=== PATIENT | male | born 1955 | race Caucasian/White ===

== ENCOUNTER 2016-12-20 08:25 | Inpatient (IN) | payer BC ==
[2016-12-20] MEDS ORDERED: NS 0.9% 1000 ML* 1,000 ML IV ONE ×2 (08:52→09:33)
[2016-12-20 09:03] LABS: Hematocrit 44 % (42-52); Hemoglobin 14.6 g/dl (14.0-18.0); Mean Corpuscular HGB Conc 33 g/dl (31-36); Mean Corpuscular Hemoglobin 28 pg (27-31); Mean Corpuscular Volume 85 fL (80-94); Mean Platelet Volume 8 um3 (7.4-10.4); Red Blood Count 5.14 10^6/ul (4.0-5.4); Red Cell Distribution Width 12 % (10.5-15)
[2016-12-20 09:19] LABS: Albumin 4.3 g/dL (3.2-5.2); BUN/Creatinine Ratio 19.3 (8-20); Calcium 10.3 mg/dL (8.6-10.3); EGFR African American 35.2 (>60); EGFR Non-African American 27.4 (>60); Globulin 3.5 g/dL (2-4); Magnesium 2.1 mg/dL (1.9-2.7); Potassium 4.6 mmol/L (3.5-5.0); Total Bilirubin 0.4 mg/dL (0.2-1.0); Total Protein 7.8 g/dL (6.4-8.9)
[2016-12-20 09:21] LABS: Troponin I 0.02 ng/mL (<0.04)
[2016-12-20 10:01] LABS: TSH (Thyroid Stimulating Horm) 2.82 mcIU/mL (0.34-5.60)
[2016-12-20] MEDS ORDERED: Acetaminophen TAB* 325 MG PO PRN (11:51)
[2016-12-20] MEDS ORDERED: Temazepam CAP* 15 MG PO PRN (11:51)
[2016-12-20] MEDS ORDERED: Dextrose 50% Syringe 50 ML* 25 GM/50 ML SYRINGE IV PUSH PRN (11:54)
[2016-12-20] MEDS ORDERED: Insulin GLARGINE(*) 1 UNITS UNIT SUBCUT SCH (12:00)
[2016-12-20 12:24] LABS: Urine Bacteria Absent (Absent); Urine Bilirubin Negative (Negative); Urine Glucose 3+(>=500 mg/dL) (Negative); Urine Nitrite Negative (Negative)
--- NOTE | 2016-12-20 12:45 | RAD ---
INDICATION: Diabetes, weakness evaluate for hydronephrosis. COMPARISON: There are no prior studies available for comparison. TECHNIQUE: Multiple real-time images of the kidneys were obtained. FINDINGS: The kidneys are normal in size shape and echogenicity. The right kidney measured 11.6 x 5.2 x 5.5 cm and the left kidney measured 11.2 x 5.2 x 5.1 cm. No significant focal abnormality or hydronephrosis was present. IMPRESSION: NEGATIVE EXAM, NO EVIDENCE FOR HYDRONEPHROSIS.
[2016-12-20] MEDS: Insulin LISPRO* 1 UNITS UNIT SUBCUT SCH ×3 (13:26→21:05)
--- NOTE | 2016-12-20 14:16 | ED ---
Yadi Carl Matthew, scribed for Curt Manriquez MD on 12/20/16 at 0849 . Complex/Multi-Sys Presentation - HPI Summary HPI Summary: A 61 y/o male presents to the ED with weakness for the past 1.5 weeks. The weakness is worse in the mornings and gradually resolves throughout the day. Today, the patient had weakness this morning, which has since resolved. Associated symptoms include dizziness, nausea, and lightheadedness, which prompted the patient to come to the ED today. He denies SOB, vomiting, and neck pain. The patient states that he was ill last week with associated nasal congestion, headache, right sided facial aching, all of which have since resolved. He has been taking Tylenol for pain due to cracked heels bilaterally. The patient had 3 stents placed 14 years ago. PMHx includes diabetes. - History Of Current Complaint Chief Complaint: EDWeakness Hx Obtained From: Patient Onset/Duration: Lasting Weeks - 1.5, Still Present Timing: Constant - gradually improving throughout the day Severity Currently: Mild Severity Initially: Mild Location: Negative Associated Signs And Symptoms: Positive: Dizziness, Weakness - bilateral arm and leg weakness, Nausea, Other - lightheadedness; NO neck pain. Negative: SOB , Vomiting - Allergies/Home Medications Allergies/Adverse Reactions: Allergies Allergy/AdvReac Type Severity Reaction Status Date / Time No Known Allergies Allergy Verified 12/20/16 08:31 Home Medications: Home Medications Atorvastatin* [Lipitor*] 80 mg PO DAILY 12/20/16 [History Confirmed 12/20/16] Clobetasol 0.05% OINT* 1 applic TOPICAL BID 12/20/16 [History Confirmed 12/20/16 ] Clopidogrel TAB* [Plavix TAB*] 75 mg PO DAILY 12/20/16 [History Confirmed ] Insulin GLARGINE(*) [Lantus(*)] 0 units SUBCUT ONCE 12/20/16 [History Confirmed 12/20/16] Lisinopril/HCTZ 10.5(NF) [Zestoretic 1012.5(NF)] 1 tab PO DAILY 12/20/16 [ History Confirmed 12/20/16] Meloxicam (Bulk) [Meloxicam] 1 pow XX DAILY 12/20/16 [History] Metoprolol Tartrate TAB* [Lopressor TAB*] 50 mg PO BID 12/20/16 [History Confirmed 12/20/16] Urea [Talita Lo 40] 40 % EX DAILY 12/20/16 [History Confirmed 12/20/16] amLODIPine TAB* [Norvasc TAB*] 5 mg PO DAILY 12/20/16 [History Confirmed ] metFORMIN* [Glucophage*] 1,000 mg PO BID 12/20/16 [History Confirmed 12/20/16] PMH/Surg Hx/FS Hx/Imm Hx Endocrine/Hematology History: Reports: Hx Diabetes Cardiovascular History: Reports: Hx Hypercholesterolemia, Hx Hypertension, Other Cardiovascular Problems/Disorders - Hx of 3 stents - Surgical History Surgery Procedure, Year, and Place: appendectomy Infectious Disease History: No Infectious Disease History: Denies: Traveled Outside the [place] in Last 30 Days - Family History Known Family History: Positive: Cardiac Disease, Diabetes Family History: FHx of [place] - Social History Lives: With Family Alcohol Use: None Hx Substance Use: No Substance Use Type: Reports: None Hx Tobacco Use: No Review of Systems Constitutional: Negative Eyes: Negative ENT: Negative Cardiovascular: Negative Respiratory: Negative Negative: Shortness Of Breath Positive: Nausea Genitourinary: Negative Musculoskeletal: Negative Skin: Other - dry cracked heels Neurological: Other - dizziness; lightheadedness Positive: Weakness - bilateral arms and legs Psychological: Normal All Other Systems Reviewed And Are Negative: Yes Physical Exam Triage Information Reviewed: Yes Vital Signs On Initial Exam: Initial Vitals Temp Pulse Resp BP Pulse Ox 96.7 F 73 17 140/69 99 12/20/16 08:27 12/20/16 08:27 12/20/16 08:27 12/20/16 08:27 12/20/16 08:27 Vital Signs Reviewed: Yes Appearance: Positive: Well-Appearing, No Pain Distress Skin: Positive: Warm, Skin Color Reflects Adequate Perfusion, Dry, Other - The patient has dry cracked heels bilaterally, which do not appear infected. Head/Face: Positive: Normal Head/Face Inspection Eyes: Positive: Normal ENT: Positive: Normal ENT inspection Neck: Positive: Supple, Nontender Respiratory/Lung Sounds: Positive: Clear to Auscultation, Breath Sounds Present Cardiovascular: Positive: RRR Abdomen Description: Positive: Nontender, Soft Bowel Sounds: Positive: Present Musculoskeletal: Positive: Normal, Strength/ROM Intact Neurological: Positive: Normal, Sensory/Motor Intact, Alert, Oriented to Person Place, Time Psychiatric: Positive: Normal, Affect/Mood Appropriate Diagnostics - Vital Signs Vital Signs Temp Pulse Resp BP Pulse Ox 12/20/16 08:27 96.7 F 73 17 140/69 99 - Laboratory Lab Results: Lab Results 12/20/16 12/20/16 12/20/16 Range/Units 08:50 08:50 08:50 WBC 11.0 H (3.5-10.8) 10^3/ul RBC 5.14 (4.0-5.4) 10^6/ul Hgb 14.6 (14.0-18.0) g/dl Hct 44 (42-52) % MCV 85 (80-94) fL MCH 28 (27-31) pg MCHC 33 (31-36) g/dl RDW 12 (10.5-15) % Plt Count 420 (150-450) 10^3/ul MPV 8 (7.4-10.4) um3 Neut % (Auto) 78.4 (38-83) % Lymph % (Auto) 8.4 L (25-47) % [place] % (Auto) 9.9 H (1-9) % Eos % (Auto) 2.9 (0-6) % Baso % (Auto) 0.4 (0-2) % Absolute Neuts (auto) 8.6 H (1.5-7.7) 10^3/ul Absolute Lymphs (auto) 0.9 L (1.0-4.8) 10^3/ul Absolute Monos (auto) 1.1 H (0-0.8) 10^3/ul Absolute Eos (auto) 0.3 (0-0.6) 10^3/ul Absolute Basos (auto) 0 (0-0.2) 10^3/ul Absolute Nucleated RBC 0.01 10^3/ul Nucleated RBC % 0.1 Sodium 130 L (133-145) mmol/L Potassium 4.6 (3.5-5.0) mmol/L Chloride 94 L (101-111) mmol/L Carbon Dioxide 25 (22-32) mmol/L Anion Gap 11 (2-11) mmol/L BUN 47 H (6-24) mg/dL Creatinine 2.43 H (0.67-1.17) mg/dL Est GFR ( Amer) 35.2 (>60) Est GFR (Non-Af Amer) 27.4 (>60) BUN/Creatinine Ratio 19.3 (8-20) Glucose 257 H (70-100) mg/dL Hemoglobin A1c (Less than 6.0) % Lactic Acid 2.7 H* (0.5-2.0) mmol/L Calcium 10.3 (8.6-10.3) mg/dL Magnesium 2.1 (1.9-2.7) mg/dL Total Bilirubin 0.40 (0.2-1.0) mg/dL AST 25 (13-39) U/L ALT 29 (7-52) U/L Alkaline Phosphatase 171 H (34-104) U/L Troponin I 0.02 (<0.04) ng/mL Total Protein 7.8 (6.4-8.9) g/dL Albumin 4.3 (3.2-5.2) g/dL Globulin 3.5 (2-4) g/dL Albumin/Globulin Ratio 1.2 (1-3) TSH 2.82 (0.34-5.60) mcIU/mL 12/20/16 Range/Units 08:50 WBC (3.5-10.8) 10^3/ul RBC (4.0-5.4) 10^6/ul Hgb (14.0-18.0) g/dl Hct (42-52) % MCV (80-94) fL MCH (27-31) pg MCHC (31-36) g/dl RDW (10.5-15) % Plt Count (150-450) 10^3/ul MPV (7.4-10.4) um3 Neut % (Auto) (38-83) % Lymph % (Auto) (25-47) % [place] % (Auto) (1-9) % Eos % (Auto) (0-6) % Baso % (Auto) (0-2) % Absolute Neuts (auto) (1.5-7.7) 10^3/ul Absolute Lymphs (auto) (1.0-4.8) 10^3/ul Absolute Monos (auto) (0-0.8) 10^3/ul Absolute Eos (auto) (0-0.6) 10^3/ul Absolute Basos (auto) (0-0.2) 10^3/ul Absolute Nucleated RBC 10^3/ul Nucleated RBC % Sodium (133-145) mmol/L Potassium (3.5-5.0) mmol/L Chloride (101-111) mmol/L Carbon Dioxide (22-32) mmol/L Anion Gap (2-11) mmol/L BUN (6-24) mg/dL Creatinine (0.67-1.17) mg/dL Est GFR ( Amer) (>60) Est GFR (Non-Af Amer) (>60) BUN/Creatinine Ratio (8-20) Glucose (70-100) mg/dL Hemoglobin A1c 12.4 H (Less than 6.0) % Lactic Acid (0.5-2.0) mmol/L Calcium (8.6-10.3) mg/dL Magnesium (1.9-2.7) mg/dL Total Bilirubin (0.2-1.0) mg/dL AST (13-39) U/L ALT (7-52) U/L Alkaline Phosphatase (34-104) U/L Troponin I (<0.04) ng/mL Total Protein (6.4-8.9) g/dL Albumin (3.2-5.2) g/dL Globulin (2-4) g/dL Albumin/Globulin Ratio (1-3) TSH (0.34-5.60) mcIU/mL Result Diagrams: 12/20/16 08:50 12/20/16 08:50 Lab Statement: Any lab studies that have been ordered have been reviewed, and results considered in the medical decision making process. - EKG 08:31 Cardiac Rate: NL - 69 bpm EKG Rhythm: Sinus Rhythm EKG Interpretation: LVH w/ strain pattern Complex Multi-Symp Course/Dx Assessment/Plan: A 61 y/o male presents to the ED with weakness for the past 1.5 weeks. The weakness is worse in the mornings and gradually resolves throughout the day. Today, the patient also had associated dizziness, nausea, and lightheadedness, which prompted him to present to the ED. Labs were reviewed. EKG shows NSR at 69 bpm and LVH with a strain pattern. His BUN and Creatinine were both elevated which may indicate dehydration but his creatine is quite elevated. I discussed the case with Dr. Blanco will admit the patient into her services for further work-up and management. - Diagnoses Provider Diagnoses: Dehydration, severe - Physician Notifications Discussed Care Of Patient With: Dr. Blanco (Hospitalist) -- Notified of patient's history and will admit the patient into her services. Discharge - Discharge Plan Condition: Guarded Disposition: ADMITTED TO [facility] The documentation as recorded by the Yadi taylor Matthew accurately reflects the service I personally performed and the decisions made by me, Curt Manriquez MD.
--- NOTE | 2016-12-20 15:16 | RAD ---
Indication: Bilateral leg fatigue with walking each morning. Hypertension, diabetes, coronary artery disease, hyperlipidemia. Comparison: None. Technique: Ankle and brachial blood pressure measurement. Calculated ankle-brachial indices. REPORT: The right ankle brachial index is 1.33 indicating reduced arterial compressibility limiting assessment. Triphasic waveforms documented at the posterior tibial and dorsalis pedis arteries. Arterial flow documented at the RIGHT great toe. Toe brachial index could not be calculated due to noncompressible vessels. Absence of significant reflected waves on RIGHT ankle pulse volume recording. The left ankle brachial index is 0.71 in claudication range. Low amplitude biphasic posterior tibial and biphasic dorsalis pedis waveforms. Arterial flow documented at the LEFT great toe. Toe brachial index could not be calculated due to noncompressible vessels. Unremarkable LEFT ankle pulse volume recording. IMPRESSION: 1. The RIGHT ankle brachial index is compromised due to noncompressible vessels. Mild degradation of the RIGHT posterior tibial spectral wave form and RIGHT ankle pulse volume recording suggests either inflow disease or intrinsic lower extremity stenoses. 2. Claudication range LEFT ankle brachial index with corresponding degradation of the posterior tibial and dorsalis pedis waveforms. 3. Correlate with clinical presentation and consider CT angiogram runoff for further assessment if deemed clinically appropriate.
--- NOTE | 2016-12-20 15:54 | HP ---
HISTORY AND PHYSICAL: DATE OF ADMISSION: 12/20/16 PRIMARY CARE PHYSICIAN: Philip Farmer MD CHIEF COMPLAINT: Generalized weakness. HISTORY OF PRESENT ILLNESS: Mr. Dannie Louis is a 61-year-old male with a history of diabetes, hypertension, dyslipidemia, and coronary artery disease who presents complaining of generalized weakness for the past week and a half. The patient stated that approximately 2 weeks ago, he had "sinus resection." His head felt "stuffy" and his nose felt congested. He denies any fevers. He stated ever since then in the morning when would wake up, he would feel very weak. He describes it as a generalized weakness. He denies shortness of breath or chest pain. His appetite has been "okay." He states that he may have lost some weight, but he could not quantify it. Today in the morning when he got up he felt dizzy, which he stated was progression of his generalized weakness. He came into the ED for evaluation and his creatinine was 2.4. The patient is not aware of having any kidney issues in the past. When he saw Dr. Farmer 6 months ago, his blood pressure medication was increased. The patient is going to be placed on overnight observation with a diagnosis of acute renal failure, most likely dehydration. PAST MEDICAL HISTORY: 1. Diabetes type 2. 2. Hypertension. 3. Coronary artery disease, status post 3 stents at [facility] 14 years ago. 4. Dyslipidemia. 5. History of C-spine surgery for herniated disk. 6. Appendectomy in childhood. MEDICATIONS: Include: 1. Insulin Lantus 35 units at night. 2. Plavix 75 mg daily. 3. Clobetasol ointment 0.05% one application topically b.i.d. to bilateral feet. 4. Lipitor 80 mg daily. 5. Lisinopril/hydrochlorothiazide 10/12.5 mg 1 table daily. 6. Metoprolol tartrate 50 mg b.i.d. 7. Urea 40% applied to bilateral feet daily. 8. Amlodipine 5 mg daily. 9. Metformin 1000 mg b.i.d. ALLERGIES: No known drug allergies. FAMILY HISTORY: Positive for mother who in her 80s of unknown cancer. Brother who secondary to esophageal cancer at the of 53. Father with history of heart disease. SOCIAL HISTORY: The patient drinks 6 packs of light beer a day. He denies any tobacco use or drug use. 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 He is and his is his surrogate, 's first name is Anoop. REVIEW OF SYSTEMS: Please see history of present illness. In addition to the above mentioned, the patient stated that he had troubles with his feet for several years now. He is going to a business operations specialist and has shoe inserts that make his calves hurt when he walks. He also uses ointments on his feet that has cracked soles a couple of times a day. Due to his feet hurting, he had been using Tylenol, but he specifically denies any use of nonsteroidal antiinflammatory medications including Motrin or any brand name of Advil, Aleve, or naproxen. All the remaining 14 systems were reviewed with the patient and were otherwise negative. PHYSICAL EXAMINATION GENERAL: The patient is a very pleasant 61-year-old male who is in no acute distress. Alert, awake, and oriented x3. VITAL SIGNS: Blood pressure 109/59, heart rate of 69 and regular, respiratory rate 10, oxygen saturation is 100% on room air, and temperature of 96.7. HEENT: Head is atraumatic and normocephalic. Eyes, pupils equal, round, reactive to light and accommodation. Oropharynx clear. Mucosa moist. NECK: Supple. No JVD. No bruits bilaterally. LUNGS: Respiratory; clear to auscultation bilaterally. HEART: Cardiovascular; regular rate and rhythm. No murmur. ABDOMEN: Soft and nontender. Bowel sounds present in all 4 quadrants. No bruits on auscultation of abdomen. On evaluation of the flank, there was no CVA tenderness bilaterally. EXTREMITIES: There is no edema. Pulses are poorly palpable and there is poor capillary refill. Otherwise feet appeared to be well perfused, warm with pink toes. SKIN: On evaluation of the skin, the patient has dry, cracked skin on bilateral feet. The skin cracks are most visible on his first toes bilaterally. NEUROLOGIC: Speech clear. Cranial nerves II through XII are grossly intact. Motor strength is 5/5 bilaterally. PSYCHIATRIC: On evaluation, no anxiety or depression noted. DIAGNOSTIC STUDIES/LAB DATA: Showed sodium of 130, potassium 4.6, chloride 94 , carbon dioxide 25, BUN 47, and creatinine 2.4. Liver function tests unremarkable apart from slight elevation of alkaline phosphatase at 171. Lactic acid of 2.7. White blood cell count of 11.2, hemoglobin of 14.6, hematocrit of 44, and platelets of 420. Urinalysis is pending at the time of dictation. The patient's EKG shows sinus rhythm with a heart rate of 69 beats per minute, with criteria for LVH and J-point elevation in anterior leads. There was no old EKG available for comparison. ASSESSMENT AND PLAN: The patient appears to be in acute renal failure, although we are still in the process of obtaining medical records from Dr. Farmer's office. I suspect that his generalized weakness is due to both maybe slight uremia plus slight dehydration as well as mild lactic acidosis when the patient is still on metformin with his creatinine of 2.4. At this point, the patient's metformin as well as Zestoretic is going to be held. The patient is going to be placed on intravenous hydration for a total of 2 L. We will monitor creatinine in the morning. We will obtain urinalysis that is still pending at the time of dictation as well as bilaterally renal ultrasound. At some point, the patient may need renal artery Doppler testing performed, but usually it is an outpatient study. In regards to poor pulses in bilaterally lower extremities and history of foot and calf pain when walking, I will obtain ankle-brachial indices bilaterally. In regards to the patient's diabetes, hemoglobin A1c is going to be obtained. He is going to be continued on insulin sliding scale as well as Lantus, which the hospital diet is going to be lowered at 20 units daily. That maybe adjusted as needed. Metformin is going to be held though the patient's creatinine markedly elevated. In regards to hypertension, amlodipine is going to be continued. Zestoretic is going to be held due to acute renal failure. In regards to the patient's history of coronary artery disease, the patient has no symptoms of shortness of breath or chest pain. His Plavix is going to be continued as well as his statin. Code status: Full. DVT prophylaxis: The patient is low risk and is fully ambulatory. At this point, the patient is going to be placed on overnight observation on the medical floor. TIME SPENT: Approximately 65 minutes was spent on the admission of this patient , more than half that time was spent [id number] with the patient doing the interview and physical exam. CC: Dr. Farmer * [id number]/CPS #: [id number] ALVINO
[2016-12-20] MEDS ORDERED: Insulin LISPRO* 1 UNITS UNIT SUBCUT SCH (16:30)
[2016-12-20] MEDS: Metoprolol Tartrate TAB* 50 mg PO SCH (17:47)
[2016-12-20] MEDS: NS 0.9% 1000 ML* 1,000 ML IV SCH (19:49)
[2016-12-20] MEDS ORDERED: amLODIPine TAB* 5 MG PO ONE (20:37)
[2016-12-20] MEDS: Insulin GLARGINE(*) 1 UNITS UNIT SUBCUT SCH (21:05)
[2016-12-20] MEDS: Clobetasol 0.05% OINT* 30 GM TUBE TOPICAL SCH (21:06)
[2016-12-21] MEDS: NS 0.9% 1000 ML* 1,000 ML IV SCH ×2 (05:52→17:47)
[2016-12-21 07:16] LABS: BUN/Creatinine Ratio 19.1 (8-20); Calcium 8.8 mg/dL (8.6-10.3); EGFR African American 50.4 (>60); EGFR Non-African American 39.2 (>60); Potassium 4.1 mmol/L (3.5-5.0)
[2016-12-21] MEDS: Insulin LISPRO* 1 UNITS UNIT SUBCUT SCH ×4 (07:41→22:22)
[2016-12-21] MEDS: Clopidogrel TAB* 75 MG PO SCH (08:07)
[2016-12-21] MEDS: Atorvastatin* 80 MG TAB PO SCH (08:07)
[2016-12-21] MEDS: Metoprolol Tartrate TAB* 50 mg PO SCH ×2 (08:08→17:47)
[2016-12-21] MEDS: Clobetasol 0.05% OINT* 30 GM TUBE TOPICAL SCH ×2 (08:08→21:35)
[2016-12-21] MEDS: amLODIPine TAB* 5 MG PO SCH (08:08)
[2016-12-21] MEDS ORDERED: Metoprolol Tartrate TAB* 25 MG PO ONE (10:42)
--- NOTE | 2016-12-21 11:22 | PN ---
Subjective Date of Service: 12/21/16 Interval History: HOSPITALIST PROGRESS NOTE Patient seen and examined at bedside. He feels better today. Dizziness is almost resolved, but he still feels " without ambition". Appetite is good and he's drinking fluids. Family History: Unchanged from Admission Social History: Unchanged from Admission Past Medical History: Unchanged from Admission Objective Active Medications: Acetaminophen (Tylenol Tab*) 650 mg PO Q4H PRN PRN Reason: FEVER/PAIN Amlodipine Besylate (Norvasc Tab*) 5 mg PO DAILY [facility] Last Admin: 12/21/16 08:08 Dose: 5 mg Atorvastatin Calcium (Lipitor*) 80 mg PO DAILY [facility] Last Admin: 12/21/16 08:07 Dose: 80 mg Clobetasol Propionate (Clobetasol 0.05% Oint*) 1 applic TOPICAL BID [facility] Last Admin: 12/21/16 08:08 Dose: 1 applic Clopidogrel Bisulfate (Plavix Tab*) 75 mg PO DAILY [facility] Last Admin: 12/21/16 08:07 Dose: 75 mg Dextrose (D50w Syringe 50 Ml*) 12.5 gm IV PUSH .FOR FS < 60 - SS PRN PRN Reason: FS < 60 Insulin Glargine (Lantus(*)) 20 units SUBCUT BEDTIME [facility] Last Admin: 12/20/16 21:05 Dose: 20 units Insulin Human Lispro (Humalog*) 0 units SUBCUT ACHS [facility] PRN Reason: Protocol Last Admin: 12/21/16 07:41 Dose: Not Given Metoprolol Tartrate (Lopressor Tab*) 50 mg PO BID WITH MEALS [facility] Last Admin: 12/21/16 08:08 Dose: 50 mg Temazepam (Restoril Cap*) 15 mg PO BEDTIME PRN PRN Reason: INSOMNIA Vital Signs 12/21/16 12/21/16 08:00 08:37 Temperature 98.0 F Pulse Rate 86 Respiratory 16 16 Rate Blood Pressure 115/65 (mmHg) O2 Sat by Pulse 99 Oximetry Oxygen Devices in Use Now: None Appearance: Pleasant gentleman sitting up in bed in NAD. Eyes: No Scleral Icterus Ears/Nose/Mouth/Throat: Mucous Membranes Moist Neck: Trachea Midline Respiratory: Symmetrical Chest Expansion and Respiratory Effort, Clear to Auscultation Cardiovascular: RRR - Normal S1 and S2 Abdominal: NL Sounds; No Tenderness; No Distention Extremities: No Edema, - - Bilateral DP pulses present, but diminished, good capillary refill Skin: - - Dry skin with cracks on his feet Neurological: Alert and Oriented x 3, NL Muscle Strength and Tone Lines/Tubes/Other Access: Clean, Dry and Intact Peripheral IV Nutrition: Taking PO's Result Diagrams: 12/20/16 08:50 12/21/16 06:37 Assess/Plan/Problems-Billing Assessment: Mr. Louis is a 61yo M with PMH of type 2 DM, HTN, CAD s/p stents (at [place] 15 years ago), HLD, who presented to ED with c/o weakness and dizziness, found to have KERLINE. - Patient Problems (1) KERLINE (acute kidney injury) Comment: - Suspect associated with Lisinopril/HCTZ as his dose was increased a couple of months ago, exacerbated by probable viral URI. - Lisinopril and HCTZ on hold. - Continue IVF. - Renal function improving. - Renal US showed no hydronephrosis. - Will obtain records from Dr. Farmer as I suspect he may already have a component of CKD secondary to his HTN/DM. (2) Peripheral vascular disease Comment: - PHILIP reviewed. - Will refer to Dr. Bullock for angiogram as outpatient after renal function improved. - Continue Clopidogrel and Atorvastatin. (3) Type 2 diabetes mellitus Comment: - Chronically uncontrolled. - A1c 12.4. - Metformin on hold due to KERLINE. - Continue Lantus and Lispro SS. - Diabetes consult requested. - Will benefit of outpatient f/u at [facility]. (4) HTN (hypertension) Comment: - Continue to monitor. - As Lisinopril/HCTZ are discontinued for now, will probably need a higher dose of Metoprolol and/or Amlodipine. (5) CAD (coronary artery disease) Comment: - No c/o chest pain or dyspnea. - Continue Plavix, Atorvastatin and Metoprolol. (6) DVT prophylaxis Comment: - SQ heparin. (7) Full code status Status and Disposition: Inpatient.
[2016-12-21] MEDS ORDERED: Insulin LISPRO* 1 UNITS UNIT SUBCUT ONE (17:14)
[2016-12-21] MEDS: Insulin GLARGINE(*) 1 UNITS UNIT SUBCUT SCH (21:33)
[2016-12-21] MEDS: Heparin VIAL(*) 5000 UNITS/ML VIAL (FIVE THOUSAND) SUBCUT SCH (21:34)
[2016-12-22] MEDS: NS 0.9% 1000 ML* 1,000 ML IV SCH (04:02)
[2016-12-22] MEDS: Heparin VIAL(*) 5000 UNITS/ML VIAL (FIVE THOUSAND) SUBCUT SCH (05:28)
[2016-12-22 06:43] LABS: BUN/Creatinine Ratio 16.7 (8-20); EGFR African American 61.4 (>60); EGFR Non-African American 47.7 (>60); Potassium 4.1 mmol/L (3.5-5.0)
[2016-12-22] MEDS ORDERED: Insulin LISPRO* 1 UNITS UNIT SUBCUT SCH (07:30)
[2016-12-22 08:05] VITALS: BP 142/61
[2016-12-22] MEDS: Insulin LISPRO* 1 UNITS UNIT SUBCUT SCH (08:41)
[2016-12-22] MEDS: Metoprolol Tartrate TAB* 50 mg PO SCH (08:51)
[2016-12-22] MEDS: Clopidogrel TAB* 75 MG PO SCH (08:51)
[2016-12-22] MEDS: amLODIPine TAB* 5 MG PO SCH (08:51)
[2016-12-22] MEDS: Atorvastatin* 80 MG TAB PO SCH (08:51)
[2016-12-22] MEDS: Clobetasol 0.05% OINT* 30 GM TUBE TOPICAL SCH (08:56)
[2016-12-22] MEDS ORDERED: amLODIPine TAB* 5 MG PO SCH (09:00)
[2016-12-22] MEDS ORDERED: amLODIPine TAB* 5 MG PO ONE (09:09)
--- NOTE | 2016-12-22 21:59 | DS ---
DISCHARGE SUMMARY: DATE OF ADMISSION: 12/20/16 DATE OF DISCHARGE: 12/22/16 PRIMARY CARE PROVIDER: Dr. Farmer. DISCHARGE DIAGNOSES: 1. Acute kidney injury, likely multifactorial associated with dehydration, SONYA inhibitor and diuretic use. 2. Peripheral vascular disease. SECONDARY DIAGNOSES: 1. Type 2 diabetes, chronically uncontrolled. 2. Hypertension. 3. Coronary artery disease, status post stent. 4. Hyperlipidemia. 5. History of cervical spine surgery for herniated disk. 6. Status post appendectomy. MEDICATIONS: 1. Aspirin 325 mg p.o. daily. 2. Urea cream topical daily. 3. Clobetasol 0.05% ointment topical b.i.d. 4. Metoprolol tartrate 50 mg p.o. b.i.d. 5. Clopidogrel 75 mg p.o. daily. 6. Atorvastatin 80 mg p.o. daily. 7. Lantus 35 units subcutaneously at bedtime. Medication change: Amlodipine was increased to 10 mg p.o. daily. NEW MEDICATIONS: Acetaminophen 650 mg p.o. q.4 hours p.r.n. pain for fever HOSPITAL COURSE: Mr. Louis is a 61-year-old male with a past medical history as stated above who presented to the emergency room with complaints of generalized weakness. He states that 2 weeks ago, he probably developed a "sinus infection." He took some exyc-hrv-caeybwg medication, but still felt congested, weak as he describes with "no ambition." He states that the day of admission he felt even worse with significant dizziness and he felt he was not safe to drive to work, so he came to the emergency room for further evaluation. For more details about his presentation, I refer you to his history and physical. In emergency room, the patient was found to have a systolic blood pressure in the 80s and a creatinine of 2.4 from a prior value of 1.2 in 2013. He was admitted under the impression of acute kidney injury, likely multifactorial. The patient had a renal ultrasound that was a negative exam with no evidence for hydronephrosis. He received IV hydration with improvement of his renal function. Creatinine on the day of discharge is 1.5. I suspect the patient may already have a component of chronic kidney disease associated with diabetic nephropathy and this was exacerbated by dehydration and also lisinopril and hydrochlorothiazide as the patient tells me that he had increased the dose of those medications a couple of months ago. At this time, his lisinopril, hydrochlorothiazide and metformin were discontinued and his amlodipine was increased to 10 mg a day to a systolic blood pressure control, but I believe as his renal function continues to improve, he may benefit of SONYA inhibitor use with closer monitoring of his renal function. The patient also had complaints of lower extremity pain and claudication, and a lower extremity arterial study was performed and it showed that on the right, ankle- brachial index is compromised due to noncompressible vessels. There is mild degradation of the right posterior tibial spectral waveform and right ankle pulse volume recording suggests either inflow disease or intrinsic lower extremity stenosis. Claudication range left ankle brachial index with corresponding degradation of the posterior tibial and dorsalis pedis waveforms. On physical examination, the patient has palpable pulses, but they are diminished and he has good capillary refill. I discussed these PHILIP results with Dr. Bullock and the plan is for the patient to be evaluated as outpatient with an angiogram when his renal function is improved. The patient also does not follow with a director of institutional giving, so I think this would be a good option to have Dr. Bullock take care of his coronary artery disease and peripheral vascular disease. At this point, the patient will be continued on his aspirin, Plavix, and atorvastatin. The patient has no complaints of chest pain, shortness of breath at rest or with exertion, or palpitations. Although he has not seen a director of institutional giving in many years, his coronary artery disease appears to be stable from a symptomatic point of view at this point, but he will require further evaluation with Dr. Bullock as outpatient. The patient is noted to have chronically uncontrolled diabetes. His hemoglobin A1c is 12.4 and the patient admits that he does not check his sugar at home and does not count carbohydrates. I have requested a consultation with Kira Londono, nurse practitioner, and the patient was referred to the [facility] as this will be one of the important items of his treatment. At this point, he is being discharged home on Lantus insulin. His metformin is on hold at this point due to his acute kidney injury, but I believe this can be resumed by next week if his renal function is back to its baseline. I believe ideally this patient would benefit of Lantus and lispro regimen with carbohydrate counting as it seems that he is not making the best dietary choices as seen by the wide fluctuation of his sugar values depending on his meals. The patient's blood pressure is improved. He had resolution of his dizziness and he feels well enough to be discharged home. The patient was educated about his diagnoses of acute kidney injury, peripheral vascular disease, type 2 diabetes, and educated about symptoms that should prompt his return to the emergency room. PHYSICAL EXAMINATION: Vital Signs: Temperature 97.9, heart rate is 84, respiratory rate is 18, oxygen saturation is 100% on room air, blood pressure is 142/61. General: The patient is a pleasant gentleman sitting up in the bed , in no acute distress. CVS: Normal S1, S2. Regular rate and rhythm. Chest: Breath sounds present bilaterally with no added sounds. Abdomen: Soft. Bowel sounds are present. Extremities: There is no edema. The patient has diminished dorsalis pedis pulses bilaterally but he has good capillary refill. Neuro: He is alert, awake, and oriented x3. He is able to move all 4 extremities. DIET: Heart healthy consistent carb diet. ACTIVITY: As tolerated. The patient can return to his usual activities on 12/26/16. DISPOSITION: To home. STATUS WHILE IN THE HOSPITAL: Inpatient. Please note that the patient is going to have a repeat BMP on 12/26/16 and the result will be sent to Dr. Bullock and to Dr. Farmer. Please keep in mind that this is a summarized version of this patient's hospital stay. If you need more information, please feel free to call me at or please obtain the full medical records. TIME SPENT: Approximately 45 minutes was spent to complete this discharge. CC: Dr. Farmer; Dr. Bullock; Kira Londono NP, at [facility]* [id number]/[facility] #: [id number] [facility]
== END 2016-12-22 10:55 | disposition home or self-care (01) | DRG 460 ==
LOC: ED 08:25 → MED 11:23 → OBSVTOIN 12-21 11:21
PROVIDERS: ADMIT Internal Medicine; ATTEND Internal Medicine
DX: N17.9 Acute kidney failure, unspecified (principal); E11.22 Type 2 diabetes mellitus with diabetic chronic kidney disease; E11.51 Type 2 diabetes mellitus with diabetic peripheral angiopathy without gangrene; E86.0 Dehydration; T46.4X5A Adverse effect of angiotensin-converting-enzyme inhibitors, initial encounter; T50.2X5A Adverse effect of carbonic-anhydrase inhibitors, benzothiadiazides and other diuretics, initial encounter; E11.65 Type 2 diabetes mellitus with hyperglycemia; I25.10 Atherosclerotic heart disease of native coronary artery without angina pectoris; Z95.5 Presence of coronary angioplasty implant and graft; E78.5 Hyperlipidemia, unspecified; Z79.82 Long term (current) use of aspirin; Z79.4 Long term (current) use of insulin; Z79.02 Long term (current) use of antithrombotics/antiplatelets; Z82.49 Family history of ischemic heart disease and other diseases of the circulatory system; Z83.3 Family history of diabetes mellitus; Z80.0 Family history of malignant neoplasm of digestive organs; N18.9 Chronic kidney disease, unspecified; I12.9 Hypertensive chronic kidney disease with stage 1 through stage 4 chronic kidney disease, or unspecified chronic kidney disease
CPT/HCPCS: 36415; 76775; 80048; 80053; 81003; 81015; 82947; 83036; 83605; 83735; 84443; 84484; 85025; 93005; 93922; A9270-GY; G0378; J1644

== ENCOUNTER 2017-11-27 05:58 | Inpatient (IN) | payer BC ==
[2017-11-27] MEDS ORDERED: Acetaminophen TAB* 325 MG PO PRN (06:18)
[2017-11-27] MEDS ORDERED: Dextrose 50% Syringe 50 ML* 25 GM/50 ML SYRINGE IV PUSH PRN (06:25)
[2017-11-27 06:54] LABS: Hematocrit 38 % (42-52); Hemoglobin 12.4 g/dl (14.0-18.0); Mean Corpuscular HGB Conc 33 g/dl (31-36); Mean Corpuscular Hemoglobin 26 pg (27-31); Mean Corpuscular Volume 80 fL (80-94); Mean Platelet Volume 8 um3 (7.4-10.4); Platelet Count 315 10^3/ul (150-450); Red Blood Count 4.72 10^6/ul (4.0-5.4); Red Cell Distribution Width 16 % (10.5-15); White Blood Count 8.1 10^3/ul (3.5-10.8)
[2017-11-27 07:05] LABS: EGFR Non-African American 28.5 (>60)
[2017-11-27] MEDS ORDERED: LORazepam TAB(*) 0.5 MG PO PRN (07:07)
[2017-11-27] MEDS: Insulin LISPRO* 1 UNITS UNIT SUBCUT SCH ×4 (07:35→21:42)
[2017-11-27] MEDS: amLODIPine TAB* 5 MG PO SCH (08:42)
[2017-11-27] MEDS: Metoprolol Tartrate TAB* 50 mg PO SCH ×2 (08:42→21:41)
[2017-11-27] MEDS: Aspirin TAB* 325 MG PO SCH (08:42)
[2017-11-27] MEDS ORDERED: Atorvastatin* 80 MG TAB PO SCH (09:00)
[2017-11-27] MEDS ORDERED: Clopidogrel TAB* 75 MG PO SCH (09:00)
--- NOTE | 2017-11-27 10:28 | HP ---
CC: Dr. Farmer * HISTORY AND PHYSICAL: DATE OF ADMISSION: 11/27/17 PRIMARY CARE PROVIDER: Dr. Farmer. CHIEF COMPLAINT: Shortness of breath. HISTORY OF PRESENT ILLNESS: Mr. Louis is a 62-year-old male, who has a history of coronary artery disease, hypertension, hyperlipidemia, peripheral artery disease, and type 2 diabetes, who presented to the [facility] complaining of shortness of breath. He states over the last 2 to 3 days, he has been noting shortness of breath. He states when he is out walking to his barn, he would have to stop 2 to 3 times just in that distance, which is unusual for him. Additionally, he would note when lying flat in bed, he could hear a gurgling sound with exhalation. The patient states that he did not feel short of breath, however, lying flat initially. On the night prior to admission , the patient was lying in bed and felt as if he could not breathe. He states that if he sat up, he would feel better, but then it got to the point where he was very short of breath even sitting upright. The patient states as he became more and more short of breath, his anxiety began to escalate and he believes that this also played a role. The patient admits to be coughing for the last 2 to 3 days. It has been dry. He denies any sputum production. He denies any consistent fevers or chills. The patient denies any chest pain. He does note that his legs have been swollen since dating back to September when he had surgery on his left lower extremity. PAST MEDICAL HISTORY: 1. Coronary artery disease. 2. Hypertension. 3. Hyperlipidemia. 4. Peripheral artery disease. 5. Type 2 diabetes. PAST SURGICAL HISTORY: 1. Left lower extremity bypass surgery. 2. Back surgery. 3. Appendectomy. MEDICATIONS: 1. Lantus 40 units subcutaneous q.h.s. 2. Aspirin 325 mg p.o. daily. 3. Metoprolol tartrate 50 mg p.o. twice daily. 4. Plavix 75 mg p.o. daily. 5. Lipitor 80 mg p.o. daily. 6. Amlodipine 10 mg p.o. daily. ALLERGIES: METFORMIN WITH CONTRAST DYE caused acute renal failure. FAMILY HISTORY: Mom at age 84 of cancer. Dad related to heart disease and peripheral arterial disease. The patient's brother secondary to esophageal cancer. SOCIAL HISTORY: The patient is a former smoker. He quit 15 to 20 years ago. He drinks 6 to 7 beers per day. 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 He is . His , Anoop, is his healthcare proxy. He has 2 children. REVIEW OF SYSTEMS: A complete 11-system review of systems was obtained. Pertinent positives and negatives are as per HPI and otherwise negative. PHYSICAL EXAMINATION GENERAL: The patient is a well-developed, middle-aged male sitting up in bed, in no acute distress. VITAL SIGNS: Blood pressure 175/83, pulse 73, respirations 16, temp 97.1, O2 sat 98% on 2 L. HEENT: Pupils are equal and round. Extraocular muscles intact. Oropharynx is clear. Oral mucosa is moist. The patient wears upper and lower dentures. There is no submandibular, cervical, or supraclavicular adenopathy. Thyroid is not enlarged. No thyroid nodules noted. PULMONARY: Lungs are clear to auscultation with very mildly reduced breath sounds at the bases. CARDIAC: Normal S1 and S2. Regular rate and rhythm. I did not appreciate any murmurs. There is 2+ pitting edema to both lower extremities up to the knee. ABDOMEN: Bowel sounds present. Abdomen is soft, nontender, and nondistended. MUSCULOSKELETAL: There is no cyanosis or clubbing of the digits. There is full active range of motion of all 4 extremities. NEURO: Cranial nerves II through XII are grossly intact. Sensation is intact to light touch throughout. Strength is 5/5 and symmetric in both the upper and lower extremities bilaterally. PSYCH: The patient is alert. He is oriented x3. Affect appears appropriate. SKIN: Warm and dry. There are no rashes. The patient has a very thick dry flaky skin on his feet. There is a well-healing ulceration to the left heel that is very minimal at this point. There is a larger approximately 1.5 cm in diameter ulceration to the pad of the left first toe. There is what appears to be mild slough in the ulcer base. There is no drainage. There is no significant erythema surrounding this. DIAGNOSTIC STUDIES/LAB DATA: These are from [facility]: WBC 8.3, hemoglobin 12.6, hematocrit 38, platelets 366, MCV 78. INR 0.83, D-dimer 491. Glucose 362 , BUN 34, creatinine 2.5, sodium 134, potassium 5.7, chloride 101, CO2 23, calcium 8.9, magnesium 2.1, albumin 2.8. Bilirubin 0.2, AST 32, ALT 36, alk phos 177. CPK 612. BNP 1540. Troponin 0.015. CK-MB 11.7, CK-MB percentage 1.9 %. Chest x-ray reportedly performed at [facility], though I cannot find the results. EKG reveals normal sinus rhythm with inverted T waves in the lateral leads. This is slightly different from the EKG in 2017, where his T waves in the lateral leads appeared to be more upright to biphasic. ASSESSMENT AND PLAN: Mr. Louis is a 62-year-old male with known history of coronary artery disease, status post stenting over a decade ago; hypertension; hyperlipidemia; peripheral arterial disease; type 2 diabetes, as well as daily alcohol use, who presents to the emergency room at [facility] with complaints of progressive shortness of breath and was found to be in what appeared to be acute congestive heart failure. 1. Acute congestive heart failure. The patient has been transferred to [facility] for further evaluation and management for this. The patient feels dramatically better after receiving 80 mg of IV Lasix in the emergency room. His lungs are essentially clear at this point. He does still have marked lower extremity edema. For now, I am going to hold off on further Lasix administration as he is still urinating copiously. I will obtain a transthoracic echocardiogram to evaluate for systolic versus diastolic congestive heart failure. The patient will continue on his metoprolol tartrate for now; however, I am going to hold on an SONYA or ARB due to his elevated creatinine. The differential diagnosis includes ischemic cardiomyopathy versus alcoholic cardiomyopathy versus other. The patient will have daily weights and strict I's and O's. Of note, the patient did have an elevated D-dimer in the emergency room; however, the patient's symptoms fit more with heart failure; therefore, I will not pursue CT scan or V/Q scan at this time. 2. Coronary artery disease. The patient denies any complaints of chest pain. He reportedly received stents greater than 10 years ago. He will be maintained on aspirin 325 mg daily and Plavix 75 mg daily in addition to metoprolol tartrate and Lipitor. 3. Hyperlipidemia. We will continue Lipitor. 4. Peripheral arterial disease. Continue aspirin, Plavix, and Lipitor. The patient does have a small, almost healed ulceration on his left heel, which likely does not need anything more than pressure relieving measures. He has a deeper and larger ulceration on the pad of the left first toe. He reportedly has been putting Medihoney on the wound. I will request a wound consult. I question may be there may some slough overlying the wound base that may benefit from a different dressing. 5. Hypertension. The patient's blood pressure is elevated at this time. However, this was obtained just after the patient arrived to the floor from the ambulance. We will monitor his next couple of blood pressures and if they remain elevated, he will need an additional antihypertensive added to his regimen. 6. Type 2 diabetes. The patient will continue on Lantus 40 units subcutaneous q.h.s. and I will add a lispro sliding scale a.c. and h.s. Hemoglobin A1c has been ordered. His last A1c in December 2016 was markedly elevated at 12.4%. 7. Anemia. The patient is mildly anemic. His MCV is low. We will follow the H and H and I will order a stool occult blood and iron studies. 8. Acute renal failure. The patient's creatinine is elevated at 2.5. His creatinine in early 2016 during an admission was elevated on admission, but trended down over the course of the next 2 days. His baseline creatinine is not completely clear, but I suspect more in the range of 1.5. He did receive Lasix. A repeat BMP is pending for this morning. We will need to monitor his renal function very closely in the setting of aggressive IV diuresis. 9. DVT prophylaxis. According to the Adult Thrombosis Prophylaxis Risk Factor Assessment Guide, the patient has a total risk factor score of 4 making him high risk. He will be placed on heparin 5000 units subcutaneous q.8 hours. 10. Code status is full. Again, the patient indicates that his is his healthcare proxy. TIME SPENT: Sixty-five minutes was spent admitting this patient. [id number]/[facility] #: [id number] MTDD
[2017-11-27] MEDS: Heparin VIAL(*) 5000 UNITS/ML VIAL (FIVE THOUSAND) SUBCUT SCH ×2 (13:44→21:42)
--- NOTE | 2017-11-27 16:20 | ECHO ---
Patient: OPAL SILVEIRA [facility] Rec#: [id number] : 1955 Date: 11/27/2017 Age: 62y Height: 175.26 cm / 69.0 in Weight: 88.9 kg / 195.9 lbs Sex: M BSA: 2.05 Room#: 439 Admit Date#: 11/27/2017 Type: Inpatient Referring: Vickie Munson DO Reading: Cayden Riley MD Neurology Nurse: Ellen Mitchell RDCS,RDMS CC: Philip Farmer MD Transthoracic Echocardiogram Indication: CHF BP: 175/83 HR: 87 Rhythm: NSR with PVCs Findings History: CAD, DM, HTN, HLD, PCI, ETOH Technical Comments: The study quality is good. Left Ventricle: The left ventricular chamber size is normal. Mild to moderate concentric left ventricular hypertrophy is observed. The estimated ejection fraction is 55-60%. Abnormal left ventricular diastolic function is observed. The left ventricular diastolic filling pattern is consistent with pseudonormalization. Left Atrium: The left atrium is moderately dilated. Right Ventricle: The right ventricle wall thickness is mildly increased.7 mm. The right ventricular cavity size is normal. The right ventricular global systolic function is normal. Right Atrium: The right atrium is mildly dilated. Aortic Valve: The aortic valve is trileaflet. Systolic excursion of the aortic valve is normal. There is mild aortic regurgitation. There is no evidence of aortic stenosis. Mitral Valve: The mitral valve leaflets are mildly thickened. There is mild mitral regurgitation. There is no evidence of mitral stenosis. Tricuspid Valve: The tricuspid valve leaflets are normal. There is trace tricuspid regurgitation. Unable to estimate the right ventricular systolic pressure. Pulmonic Valve: There is no evidence of pulmonic valve thickening. There is a trace pulmonic regurgitation. Pericardium: A trivial pericardial effusion is visualized. The pericardial effusion is seen adjacent to the right atrium. Aorta: The aortic root appears normal. The aortic arch is not well visualized. Pulmonary Artery: The main pulmonary artery is not well visualized. Venous: The inferior vena cava appears normal in size. There is less than 50% respiratory change in the inferior vena cava dimension. Summary: There was not any prior study for comparison. Conclusions Mild to moderate concentric left ventricular hypertrophy is observed. The estimated ejection fraction is 55-60%. The left ventricular diastolic filling pattern is consistent with pseudonormalization. The left atrium is moderately dilated. The right ventricle wall thickness is mildly increased at 7 mm. The right atrium is mildly dilated. There is mild aortic regurgitation. There is mild mitral regurgitation. There is trace tricuspid regurgitation. Measurements Name Value Normal Range RVIDd (AP) 2D 2.9 cm (0.9 - 2.6) RVDdMajor (2D) 3.1 cm (2.2 - 4.4) RAd ISD 4CH 5.3 cm (3.4 - 4.9) RA (A4C)W 3.9 cm (2.9 - 4.6) IVSd (2D) 1.4 cm (0.6 - 1) LVPWd (2D) 1.2 cm (0.6 - 1) LVIDd (2D) 5.1 cm (3.6 - 5.4) LVIDs (2D) 3.5 cm - LV FS (2D) 32 % (25 - 45) Aortic Annulus 2.2 cm (1.4 - 2.6) Ao root diameter (2D) 3.1 cm (2.1 - 3.5) Ascending Ao 2.8 cm (2.1 - 3.4) LA dimension (AP) 2D 4.6 cm (2.3 - 3.8) LAd ISD 4CH 5.5 cm (2.9 - 5.3) LA ISD 4CH W 5.1 cm (2.5 - 4.5) Name Value Normal Range LA ESV SP 4CH (A/L) 94.49 ml - LA ESV SP 2CH (A/L) 88.43 ml - LA ESV BP (A/L) 96.29 ml - LA ESV BP (A/L) index 47 ml/m2 - LA ESV SP 4CH (MOD) 83.99 ml - LA ESV SP 2CH (MOD) 81.61 ml - Name Value Normal Range MV E-wave Vmax 1 m/sec - MV deceleration time 169 msec - MV A-wave Vmax 0.7 m/sec - MV E:A ratio 1.4 ratio - P. vein S-wave Vmax 0.5 m/sec - P. vein D-wave Vmax 0.6 m/sec - P. vein S:D Vmax ratio 0.8 ratio - P. vein A-wave duration 100 msec - LV septal e' Vmax 0.05 m/sec - LV lateral e' Vmax 0.07 m/sec - LV E:e' septal ratio 20 ratio - LV E:e' lateral ratio 14 ratio - Name Value Normal Range AV Vmax 1.3 m/sec - AV VTI 32.3 cm - AV peak gradient 7 mmHg - AV mean gradient 3.6 mmHg - LVOT Vmax 0.8 m/sec - LVOT VTI 18 cm - LVOT peak gradient 2.6 mmHg - LVOT mean gradient 1.5 mmHg - AR PHT 534.45 msec - AR peak gradient 45.29 mmHg - Name Value Normal Range RAP 8 mmHg - IVC diameter 1.9 cm - Name Value Normal Range PV Vmax 0.8 m/sec - PV peak gradient 2.6 mmHg -
--- NOTE | 2017-11-27 18:33 | PN ---
Hospitalist Progress Note Date of Service: 11/27/[address] Bullock. Recommending eval for renal artery stenosis and stress test. Will order lexiscan and renal artery duplex for tomorrow.
[2017-11-27] MEDS ORDERED: Insulin GLARGINE(*) 1 UNITS UNIT SUBCUT SCH (21:00)
[2017-11-27] MEDS: Clopidogrel TAB* 75 MG PO SCH (21:41)
[2017-11-27] MEDS: Atorvastatin* 80 MG TAB PO SCH (21:41)
[2017-11-28] MEDS: Heparin VIAL(*) 5000 UNITS/ML VIAL (FIVE THOUSAND) SUBCUT SCH ×3 (04:41→22:21)
[2017-11-28 07:15] LABS: ABS Basophils 0 10^3/ul (0-0.2); ABS Eosinophils 0.3 10^3/ul (0-0.6); ABS Lymphocytes 0.7 10^3/ul (1.0-4.8); ABS Monocytes 0.5 10^3/ul (0-0.8); ABS Neutrophils 5.2 10^3/ul (1.5-7.7); ABS Nucleated RBC 0 10^3/ul; Eosinophil % 4.2 % (0-6); Hematocrit 35 % (42-52); Hemoglobin 11.5 g/dl (14.0-18.0); Lymphocyte % 10.3 % (25-47); Mean Corpuscular HGB Conc 33 g/dl (31-36); Mean Corpuscular Hemoglobin 26 pg (27-31); Mean Corpuscular Volume 80 fL (80-94); Mean Platelet Volume 8 um3 (7.4-10.4); Nucleated Red Blood Cells % 0; Platelet Count 270 10^3/ul (150-450); Red Blood Count 4.36 10^6/ul (4.0-5.4); Red Cell Distribution Width 16 % (10.5-15); White Blood Count 6.8 10^3/ul (3.5-10.8)
[2017-11-28] MEDS ORDERED: Insulin GLARGINE(*) 1 UNITS UNIT SUBCUT SCH (07:32)
[2017-11-28] MEDS: Aspirin TAB* 325 MG PO SCH (08:51)
[2017-11-28 09:51] LABS: EGFR Non-African American 30.6 (>60)
[2017-11-28] MEDS: Insulin LISPRO* 1 UNITS UNIT SUBCUT SCH ×4 (10:16→22:21)
[2017-11-28] MEDS ORDERED: Aminophylline IV* 25 MG/ML 10 ML VIAL ONE (11:09)
[2017-11-28] MEDS ORDERED: Regadenoson* 0.4 MG/5 ML SYRINGE ONE (11:09)
--- NOTE | 2017-11-28 13:13 | RAD ---
HISTORY: CHF, shortness of breath, diabetes, hypertension and hyperlipidemia COMPARISONS: None TECHNIQUE: A 1 day stress/rest myocardial perfusion study was performed, with pharmacologic stress. The stress portion was monitored by Dr. Joe. Gated SPECT imaging was performed, with CT-based attenuation correction DOSE: Stress: Technetium 99m tetrofosmin, 26.89 millicuries, injected at 11:57 AM on November 28, 2017 Rest: Technetium 99m tetrofosmin, 10.3 millicuries, injected at 9:42 AM on November 28, 2017 Pharmacologic agent: Lexiscan FINDINGS: CARDIAC MONITORING: No ischemic changes EKG criteria with stress EF: 38% TID: 1.07 MOTION: There is diffuse hypokinesia PERFUSION: There is reversible periapical hypoperfusion. OTHER: There are large bilateral pleural effusions. IMPRESSION: 1. DECREASED EJECTION FRACTION. 2. REVERSIBLE PERIAPICAL HYPOPERFUSION SUGGESTIVE OF ISCHEMIA. 3. BILATERAL PLEURAL EFFUSIONS ASSESSMENT: HIGH RISK. Based on imaging criteria from ACC/AHA 2002. Guideline Update for the Management of Patient's with Chronic Stable Angina, table 23. Noninvasive Risk Stratification. CPT II Codes: 5543G9M
[2017-11-28] MEDS ORDERED: amLODIPine TAB* 5 MG ONE (15:43)
[2017-11-28] MEDS: amLODIPine TAB* 5 MG PO SCH (15:49)
[2017-11-28] MEDS ORDERED: Metoprolol Tartrate TAB* 25 MG ONE (15:57)
[2017-11-28] MEDS: Metoprolol Tartrate TAB* 50 mg PO SCH ×2 (15:59→22:22)
[2017-11-28] MEDS ORDERED: Furosemide IV* 10 MG/ML 2 ML VIAL (20 MG) IV SLOW PU ONE (18:22)
--- NOTE | 2017-11-28 18:25 | PN ---
Subjective Date of Service: 11/28/17 Interval History: Patient seen and examined. Back from lexiscan and renal artery doppler. States breathing has improved significantly, denies chest pain, denies acute SOB, no fatigue or headache. Tolerated meal. Family at bedside. Objective Active Medications: Acetaminophen (Tylenol Tab*) 650 mg PO Q4H PRN PRN Reason: PAIN Amlodipine Besylate (Norvasc Tab*) 10 mg PO DAILY [facility] Last Admin: 11/28/17 15:49 Dose: 10 mg Aspirin (Aspirin Tab*) 325 mg PO DAILY [facility] Last Admin: 11/28/17 08:51 Dose: 325 mg Atorvastatin Calcium (Lipitor*) 80 mg PO DAILY@2100 [facility] Last Admin: 11/27/17 21:41 Dose: 80 mg Clopidogrel Bisulfate (Plavix Tab*) 75 mg PO DAILY@2100 [facility] Last Admin: 11/27/17 21:41 Dose: 75 mg Dextrose (D50w Syringe 50 Ml*) 12.5 gm IV PUSH .FOR FS < 60 - SS PRN PRN Reason: FS < 60 Heparin Sodium (Porcine) (Heparin Vial(*)) 5,000 units SUBCUT Q8HR [facility] Last Admin: 11/28/17 15:50 Dose: 5,000 units Insulin Glargine (Lantus(*)) 30 units SUBCUT BEDTIME [facility] Insulin Human Lispro (Humalog*) 0 units SUBCUT ACHS [facility] PRN Reason: Protocol Last Admin: 11/28/17 17:10 Dose: Not Given Lorazepam (Ativan Tab(*)) 0 mg PO Q2H PRN; Protocol PRN Reason: alcohol withdrawal Metoprolol Tartrate (Lopressor Tab*) 50 mg PO BID [facility] Last Admin: 11/28/17 15:59 Dose: 50 mg Vital Signs - 8 hr 11/28/17 15:08 Temperature 98.0 F Pulse Rate 77 Respiratory 16 Rate Blood Pressure 149/63 (mmHg) O2 Sat by Pulse 100 Oximetry Oxygen Devices in Use Now: None Appearance: Alert, NAD Eyes: No Scleral Icterus, PERRLA Ears/Nose/Mouth/Throat: NL Teeth, Lips, Gums, Mucous Membranes Moist Neck: NL Appearance and Movements; NL JVP, Trachea Midline Respiratory: Symmetrical Chest Expansion and Respiratory Effort, - - Right diminished half up base with fine crackles, left clear with fine crackles at base Cardiovascular: NL Sounds; No Murmurs; No JVD, RRR Abdominal: NL Sounds; No Tenderness; No Distention Extremities: No Edema, No Clubbing, Cyanosis Skin: No Rash or Ulcers Neurological: Alert and Oriented x 3 Nutrition: Taking PO's Result Diagrams: 11/28/17 07:09 11/28/17 07:09 Assess/Plan/Problems-Billing Assessment: This is a 62 year old male with history of CAD, PAD, CKD, Anemia, IDDM, HTN and diabetic wound to left great toe that presents to the ED with acute SOB and found to be in acute HF, requiring IV diuresis. 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 Damon, as patient does not have local skiver box toe - Avoid nephrotoxic agents (3) CAD (coronary artery disease) Code(s): I25.10 - ATHSCL HEART DISEASE OF [place] CORONARY ARTERY W/O ANG PCTRS SNOMED Code(s): 83182070 Comment: - No chest pain at present - Hx of stents many years ago?? - Continue ASA, Plavix, Statin and Metoprolol. (4) DVT prophylaxis Current Visit: No Status: Acute Code(s): DZV8183 - SNOMED Code(s): 959681437 Comment: - SQ heparin. (5) Full code status Code(s): Z78.9 - OTHER SPECIFIED HEALTH STATUS SNOMED Code(s): 416493229 (6) HTN (hypertension) Code(s): I10 - ESSENTIAL (PRIMARY) HYPERTENSION SNOMED Code(s): 03288914 Comment: - Continue metoprolol and amlodipine - HF component may be a factor of longstanding uncontrolled HTN (7) Type 2 diabetes mellitus Comment: - A1C = 10.2 - Accuchecks AC and HS - Continue lantus and lispro SS - Carb control and low Na diet (8) Acute congestive heart failure Code(s): I50.9 - HEART FAILURE, UNSPECIFIED SNOMED Code(s): 09118379 Comment: - s/p lexiscan, awaiting read - s/p renal artery US, awaiting read - continue IV lasix x1 more dose today - I&O with negative fluid balance for last two days with 4lb weight reduction - Consult nutrition for low Na HF diet and diabetic diet counseling - Continue to monitor wts and I&O (9) Diabetic foot ulcer Code(s): E11.621 - TYPE 2 DIABETES MELLITUS WITH FOOT ULCER; L97.509 - NON- PRESSURE CHRONIC ULCER OTH PRT UNSP FOOT W UNSP SEVERITY SNOMED Code(s): 138529970 Comment: - 2/2 to DMII and PAD - Treat with medihoney daily - local wound care Status and Disposition: Likely DC tomorrow if improvement continues. Counseling and/or Coordination of Care Minutes: coordinated with patient and staff
[2017-11-28] MEDS: Atorvastatin* 80 MG TAB PO SCH (22:22)
[2017-11-28] MEDS: Clopidogrel TAB* 75 MG PO SCH (22:23)
[2017-11-29] MEDS: Heparin VIAL(*) 5000 UNITS/ML VIAL (FIVE THOUSAND) SUBCUT SCH (06:09)
[2017-11-29 06:19] LABS: EGFR Non-African American 29.5 (>60)
[2017-11-29] MEDS: Aspirin TAB* 325 MG PO SCH (08:43)
[2017-11-29] MEDS: Insulin LISPRO* 1 UNITS UNIT SUBCUT SCH ×2 (08:43→13:10)
[2017-11-29] MEDS: amLODIPine TAB* 5 MG PO SCH (08:43)
[2017-11-29] MEDS: Metoprolol Tartrate TAB* 50 mg PO SCH (08:43)
--- NOTE | 2017-11-29 11:27 | PN ---
Subjective Date of Service: 11/29/17 Interval History: Patient seen and examined. Feeling well, no SOB, no chest pain, ambulatory. Wants to go home. Had many questions about diet and follow up. Discussed HF diet at length and diabetes control. Objective Active Medications: Acetaminophen (Tylenol Tab*) 650 mg PO Q4H PRN PRN Reason: PAIN Amlodipine Besylate (Norvasc Tab*) 10 mg PO DAILY [facility] Last Admin: 11/29/17 08:43 Dose: 10 mg Aspirin (Aspirin Tab*) 325 mg PO DAILY [facility] Last Admin: 11/29/17 08:43 Dose: 325 mg Atorvastatin Calcium (Lipitor*) 80 mg PO DAILY@2100 [facility] Last Admin: 11/28/17 22:22 Dose: 80 mg Clopidogrel Bisulfate (Plavix Tab*) 75 mg PO DAILY@2100 [facility] Last Admin: 11/28/17 22:23 Dose: 75 mg Dextrose (D50w Syringe 50 Ml*) 12.5 gm IV PUSH .FOR FS < 60 - SS PRN PRN Reason: FS < 60 Heparin Sodium (Porcine) (Heparin Vial(*)) 5,000 units SUBCUT Q8HR [facility] Last Admin: 11/29/17 06:09 Dose: 5,000 units Insulin Glargine (Lantus(*)) 30 units SUBCUT BEDTIME [facility] Last Admin: 11/28/17 22:21 Dose: 30 units Insulin Human Lispro (Humalog*) 0 units SUBCUT ACHS [facility] PRN Reason: Protocol Last Admin: 11/29/17 08:43 Dose: 2 unit Lorazepam (Ativan Tab(*)) 0 mg PO Q2H PRN; Protocol PRN Reason: alcohol withdrawal Metoprolol Tartrate (Lopressor Tab*) 50 mg PO BID [facility] Last Admin: 11/29/17 08:43 Dose: 50 mg Vital Signs - 8 hr 11/29/17 11/29/17 11/29/17 03:28 07:30 07:44 Temperature 98.2 F 97.3 F Pulse Rate 69 78 Respiratory 16 18 14 Rate Blood Pressure 132/49 140/57 (mmHg) O2 Sat by Pulse 98 96 Oximetry Oxygen Devices in Use Now: None Eyes: No Scleral Icterus, PERRLA Ears/Nose/Mouth/Throat: NL Teeth, Lips, Gums, Mucous Membranes Moist Neck: NL Appearance and Movements; NL JVP, Trachea Midline Respiratory: Symmetrical Chest Expansion and Respiratory Effort, - - diminished bases, no crackles Cardiovascular: NL Sounds; No Murmurs; No JVD, No Edema Abdominal: NL Sounds; No Tenderness; No Distention Extremities: No Edema, No Clubbing, Cyanosis Skin: - - toe wound dressed Neurological: Alert and Oriented x 3 Nutrition: Taking PO's Result Diagrams: 11/28/17 07:09 11/29/17 05:59 Diagnostic Imaging: Patient Name: OPAL SILVEIRA Medical Record#: [id number] Ordering Physician: Serenity Michele NP Acct.#: [id number] : 1955 Age: 62 Sex: M Location: [address] [place] [address] MEDICAL/TELEMETRY Exam Date: 11/28/171829 ADM Status: ADM IN Order Information: NUCLEAR CARDIAC STRESS TEST Accession Number: [id number] CPT: 88184 HISTORY: CHF, shortness of breath, diabetes, hypertension and hyperlipidemia COMPARISONS: None TECHNIQUE: A 1 day stress/rest myocardial perfusion study was performed, with pharmacologic stress. The stress portion was monitored by Dr. Joe. Gated SPECT imaging was performed, with CT-based attenuation correction DOSE: Stress: Technetium 99m tetrofosmin, 26.89 millicuries, injected at 11:57 AM on November 28, 2017 Rest: Technetium 99m tetrofosmin, 10.3 millicuries, injected at 9:42 AM on November 28, 2017 Pharmacologic agent: Lexiscan FINDINGS: CARDIAC MONITORING: No ischemic changes EKG criteria with stress EF: 38% TID: 1.07 MOTION: There is diffuse hypokinesia PERFUSION: There is reversible periapical hypoperfusion. OTHER: There are large bilateral pleural effusions. IMPRESSION: 1. DECREASED EJECTION FRACTION. 2. REVERSIBLE PERIAPICAL HYPOPERFUSION SUGGESTIVE OF ISCHEMIA. 3. BILATERAL PLEURAL EFFUSIONS ASSESSMENT: HIGH RISK. Based on imaging criteria from ACC/AHA 2002. Guideline Update for the Management of Patient's with Chronic Stable Angina, table 23. Noninvasive Risk Stratification. CPT II Codes: 7454X9K <Electronically signed by Lawson Riddle MD in [place]> 11/28/17 1310 Dictated By: Lawson Riddle MD Dictated Date/Time: 11/28/17 1310 Transcribed Date/Time: 11/28/17 1307 Copy to: 1 of 2 Assess/Plan/Problems-Billing Assessment: This is a 62 year old male with history of CAD, PAD, CKD, Anemia, IDDM, HTN and diabetic wound to left great toe that presents to the ED with acute SOB and found to be in acute HF with bilateral pleural effusions, requiring IV diuresis. 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 Damon out today, will refer for outpatient f/u at [facility] - Avoid nephrotoxic agents (3) CAD (coronary artery disease) Code(s): I25.10 - ATHSCL HEART DISEASE OF [place] CORONARY ARTERY W/O ANG PCTRS SNOMED Code(s): 77644527 Comment: - No chest pain at present - Hx of stents many years ago - Continue ASA, Plavix, Statin and Metoprolol - Stress test as above, will need f/u with Dr. Bullock for outpatient cardiac cath in the future (4) DVT prophylaxis Current Visit: No Status: Acute Code(s): GSJ5986 - SNOMED Code(s): 835037066 Comment: - SQ heparin. (5) Full code status Code(s): Z78.9 - OTHER SPECIFIED HEALTH STATUS SNOMED Code(s): 002823702 (6) HTN (hypertension) Code(s): I10 - ESSENTIAL (PRIMARY) HYPERTENSION SNOMED Code(s): 61253515 Comment: - Continue metoprolol and amlodipine - Uncontrolled HTN may be underlying cause, as renal artery US is negative for stenosis (7) Type 2 diabetes mellitus Comment: - A1C = 10.2 - Accuchecks AC and HS, labile sugars - low this am requiring dextrose - Continue lantus and lispro SS - Carb control and low Na diet - Patient counseled extensively on glycemic control and getting A1c down to 7 (8) Acute congestive heart failure Code(s): I50.9 - HEART FAILURE, UNSPECIFIED SNOMED Code(s): 48619192 Comment: - Lexiscan as above, follow up with Dr. Bullock - Per Dr. Vargas, renal artery US with no elevated velocity and no stenosis, some diminished waveforms but this may be technical - continue lasix at home - I&O with negative fluid balance last 3 days, appears to be euvolemic (9) Diabetic foot ulcer Code(s): E11.621 - TYPE 2 DIABETES MELLITUS WITH FOOT ULCER; L97.509 - NON- PRESSURE CHRONIC ULCER OTH PRT UNSP FOOT W UNSP SEVERITY SNOMED Code(s): 323161109 Comment: - 2/2 to DMII and PAD - Treat with medihoney daily - local wound care Status and Disposition: Medically optimized for discharge to home today.
[2017-11-29 11:30] VITALS: BP 155/69
--- NOTE | 2017-11-29 13:51 | RAD ---
INDICATION: Uncontrolled hypertension COMPARISON: None. TECHNIQUE: Multiple longitudinal and transverse sonographic images of the kidneys and renal arteries were obtained including color Doppler and spectral analysis. REPORT: Peak systolic velocity in the aorta measures 105 cm/s. Right: Right kidney measures 11.2 x 5.0 x 5.0 cm. Cortical echogenicity is normal. No stones, focal lesions, or hydronephrosis noted. Resistive indices measure up to 0.78. The peak systolic velocity within the right renal artery measures 125 cm/s at the distal right renal artery. The corresponding end diastolic velocity measures 17 cm/s. The renal to aortic ratio is 1.2. Left: Left kidney measures 11.8 x 6.4 x 4.6 cm. Cortical echogenicity is normal. No stones, focal lesions, or hydronephrosis noted. Resistive indices measure up to 0.78. The peak systolic velocity within the right renal artery measures 149 cm/s at the ostium. The renal to aortic ratio is 1.4. COMMENT: There are minimally elevated flow velocities measured at the right distal renal artery and left ostium but the velocity measurement as well as the ratio to the aortic velocity do not meet criteria for sonographic diagnosis of renal artery stenosis.
== END 2017-11-29 13:49 | disposition home or self-care (01) | DRG 194 ==
LOC: MEDTELE 05:58
PROVIDERS: ADMIT Hospitalist; ATTEND Internal Medicine
DX: I13.0 Hypertensive heart and chronic kidney disease with heart failure and stage 1 through stage 4 chronic kidney disease, or unspecified chronic kidney disease (principal); N17.9 Acute kidney failure, unspecified; E11.22 Type 2 diabetes mellitus with diabetic chronic kidney disease; E11.51 Type 2 diabetes mellitus with diabetic peripheral angiopathy without gangrene; N18.3 Chronic kidney disease, stage 3 (moderate); I50.9 Heart failure, unspecified; E11.65 Type 2 diabetes mellitus with hyperglycemia; I25.10 Atherosclerotic heart disease of native coronary artery without angina pectoris; E11.621 Type 2 diabetes mellitus with foot ulcer; L97.521 Non-pressure chronic ulcer of other part of left foot limited to breakdown of skin; E78.5 Hyperlipidemia, unspecified; D64.9 Anemia, unspecified; Z95.5 Presence of coronary angioplasty implant and graft; Z79.01 Long term (current) use of anticoagulants; Z79.82 Long term (current) use of aspirin; Z79.4 Long term (current) use of insulin; Z79.899 Other long term (current) drug therapy; Z88.8 Allergy status to other drugs, medicaments and biological substances; Z91.041 Radiographic dye allergy status; Z80.0 Family history of malignant neoplasm of digestive organs; Z80.9 Family history of malignant neoplasm, unspecified; Z82.49 Family history of ischemic heart disease and other diseases of the circulatory system; Z87.891 Personal history of nicotine dependence
CPT/HCPCS: 36415; 78452; 80048; 80053; 82728; 83036; 83540; 83550; 83880; 84443; 84484; 85025; 85027; 93017; 93306; 93975; A9270-GY; A9502; J0280; J1644; J1940; J2785

== ENCOUNTER 2018-04-03 07:49 | Observation (INO) | payer BC ==
[2018-04-03 08:50] LABS: ABS Basophils 0 10^3/ul (0-0.2); ABS Eosinophils 0.3 10^3/ul (0-0.6); ABS Lymphocytes 0.2 10^3/ul (1.0-4.8); ABS Monocytes 0.8 10^3/ul (0-0.8); ABS Neutrophils 6.7 10^3/ul (1.5-7.7); ABS Nucleated RBC 0 10^3/ul; Eosinophil % 3.4 % (0-6); Hematocrit 37 % (42-52); Hemoglobin 12.4 g/dl (14.0-18.0); Lymphocyte % 2.5 % (25-47); Mean Corpuscular HGB Conc 33 g/dl (31-36); Mean Corpuscular Hemoglobin 28 pg (27-31); Mean Corpuscular Volume 84 fL (80-94); Mean Platelet Volume 8.1 um3 (7.4-10.4); Nucleated Red Blood Cells % 0.1; Platelet Count 224 10^3/ul (150-450); Red Blood Count 4.44 10^6/ul (4.0-5.4); Red Cell Distribution Width 15 % (10.5-15)
[2018-04-03 08:58] LABS: INR 0.88 (0.77-1.02)
--- NOTE | 2018-04-03 09:30 | RAD ---
INDICATION: Hypoglycemia COMPARISON: None TECHNIQUE: An AP portable view obtained at 0847 hours is submitted. FINDINGS: Bones/Soft Tissues: There are no acute bony findings. Cardiomediastinal: The cardiomediastinal silhouette is normal. Lungs: There are no infiltrates. Pleura: There are no pleural effusions. Other: None IMPRESSION: NO ACTIVE DISEASE.
[2018-04-03 10:05] LABS: EGFR Non-African American 24.4 (>60)
[2018-04-03] MEDS ORDERED: Aspirin 81 mg CHEW TAB* 81 MG TAB.CHEW PO ONE (11:22)
[2018-04-03 11:53] LABS: Urine Appearance Clear; Urine Blood 1+ (Negative); Urine Color Yellow; Urine Ketones Negative (Negative); Urine Protein 2+(100 mg/dL) (Negative); Urine Specific Gravity 1.012 (1.010-1.030); Urine Urobilinogen Negative (Negative)
[2018-04-03] MEDS ORDERED: Dextrose 50% Syringe 50 ML* 25 GM/50 ML SYRINGE IV PUSH PRN (13:09)
[2018-04-03] MEDS ORDERED: NS 0.9% 1000 ML* 1,000 ML IV SCH (13:45)
[2018-04-03] MEDS ORDERED: hydrALAZINE IV* 20 MG/ML VIAL IV SLOW PU PRN (14:22)
[2018-04-03] MEDS: Heparin VIAL(*) 5000 UNITS/ML VIAL (FIVE THOUSAND) SUBCUT SCH ×2 (14:46→21:27)
[2018-04-03] MEDS ORDERED: Insulin LISPRO* 1 UNITS UNIT SUBCUT ONE (17:53)
[2018-04-03] MEDS: Insulin LISPRO* 1 UNITS UNIT SUBCUT SCH ×2 (18:04→21:26)
[2018-04-03] MEDS ORDERED: GuaiFENesin DM* 5 ML UDC PO PRN (18:15)
[2018-04-03] MEDS ORDERED: Insulin GLARGINE(*) 1 UNITS UNIT SUBCUT SCH (21:00)
--- NOTE | 2018-04-03 21:22 | HP ---
CC: Dr. Farmer * HISTORY AND PHYSICAL: DATE OF ADMISSION: 04/03/18 ATTENDING PHYSICIAN: Chanelle Pham MD * (report dictated by Andreas Pope NP). PRIMARY CARE PROVIDER: Dr. Farmer. INFECTIOUS DISEASE: Dr. Wood. CHIEF COMPLAINT: Hyperglycemia. HISTORY OF PRESENT ILLNESS: Mr. Louis is a 62-year-old male with a past medical history of insulin dependent type 2 diabetes, hypertension, coronary artery disease, hyperlipidemia, peripheral artery disease, and osteomyelitis in which he is currently under the treatment of Dr. Wood and taking rifaximin and doxycycline who presents to the emergency department today with report of checking his blood sugar this morning and having it be out of range. He became concerned and came to the emergency department for further evaluation. In the emergency department, the initial blood glucometer showed blood glucose of greater than 444 in which he then underwent a serum lab draw, which resulted in 283. The patient reports he gave himself 10 units of Humalog after the initial out of range blood sugar at home and rechecked it multiple times, but it still had not come down, so therefore he became worried and came to the emergency department. On evaluation in the emergency department, the patient has noted to have elevated liver enzymes with an AST of 169 and ALT of 249. His last blood work was approximately a week ago which notes normal LFTs. He reports that he has been on the doxycycline going into his second month and the rifaximin is a newer medication starting at approximately [address] Wood's care. The patient reports that he is taking a long course of oral antibiotics for a left big toe osteomyelitis and that he is followed by the wound clinic and reports that this has almost healed. As well in the emergency department, it is noted his troponin is 0.04. He does have a history of chronic kidney disease with a baseline creatinine of 2.6. He denies any shortness of breath or chest pain. No orthopnea and lower extremity swelling. Denies any recent fevers or chills at home. His only complaint is he reports that he is taking rifaximin. He has had some loose stools, decreased appetite and more fatigue and states that these are side effects of the medication. He denies any abdominal pain, nausea, vomiting. No difficulty urinating. PAST MEDICAL HISTORY: 1. Peripheral artery disease status post left lower extremity bypass surgery with subsequent chronic wound in his left big toe, which was suspected to have osteomyelitis and is on current long-term antibiotic treatment. 2. Hypertension. 3. Hyperlipidemia. 4. Insulin dependent type 2 diabetes. 5. Chronic kidney disease. Baseline creatinine 2.5. PAST SURGICAL HISTORY: 1. Left lower extremity bypass surgery. 2. Back surgery. 3. Status post appendectomy. CURRENT HOME MEDICATIONS: 1. Humalog 10 to 20 units subcu p.r.n. 2. Norvasc 10 mg p.o. daily. 3. Multivitamin with minerals 1 tab p.o. daily. 4. Lantus 40 units subcu at bedtime. 5. Rifampin 300 mg p.o. b.i.d. 6. Lasix 20 mg p.o. daily. 7. Doxycycline 100 mg p.o. b.i.d. 8. Plavix 75 mg p.o. daily. 9. Coreg 6.25 mg p.o. b.i.d. 10. Lipitor 80 mg p.o. daily. 11. Aspirin 325 mg p.o. daily. ALLERGIES: METFORMIN with CONTRAST DYE caused acute renal failure. FAMILY HISTORY: Mother at age 84 of cancer. His father had peripheral artery disease and coronary artery disease. His brother secondary to esophageal cancer. SOCIAL HISTORY: The patient is a former smoker, quitting approximately 20 years ago. He reports he drinks 3 glasses of wine per day. 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 He is and lives with his , who is his healthcare proxy. Her number is [phone]. He has 2 children. REVIEW OF SYSTEMS: A 14-point review of systems was performed. All the pertinent positives and negatives are mentioned in the history of present illness. Otherwise, negative. PHYSICAL EXAMINATION GENERAL APPEARANCE: Well-developed 62-year-old male, alert and oriented x3, in no acute distress, very pleasant, good historian. VITAL SIGNS: Temperature 98.0, heart rate 81, respirations 18, O2 saturation is 99% on room air, and blood pressure 177/91. HEENT: Head is normocephalic, atraumatic. Pupils are equal and reactive to light. Oropharynx is clear. Moist mucous membranes. Good dentition. NECK: Supple. LUNGS: Clear to auscultation bilaterally. Good aeration throughout. CARDIAC: S1 and S2. Regular rate and rhythm. No murmur or gallop appreciated. ABDOMEN: Soft, nontender, nondistended. Normal bowel sounds throughout. No hepatosplenomegaly noted. EXTREMITIES: No clubbing, cyanosis, or edema noted. SKIN: Left big toe has a small 2 cm healed wound. No noted erythema or drainage. There is noted to be a small piece of packing. The wound looks clean , dry, and intact. PSYCH: Appropriate to situation. LABORATORY DATA AND DIAGNOSTIC STUDIES: Sodium 129, potassium 5.0, chloride 97 , carbon dioxide 24, anion gap 8, BUN 40, creatinine 2.68, glucose 280, lactic acid 0.9, calcium 8.9, total bilirubin 0.40, AST 169, ALT 249, alkaline phosphatase 790, troponin 0.04, total protein 6.0, albumin 2.8. WBC is 8.0, RBC 4.44, HGB 12.4, HCT 37, MCV 84, MCH 28, MCHC 33, RDW 15, and platelet count 224,000. INR is 0.88. Chest x-ray, impression: No active disease. EKG: Sinus rhythm with a rate of 78. In comparison to EKG from 12/20/16, he does have noted T-wave inversions in leads V4 and V5. ASSESSMENT AND PLAN: Mr. Louis is a 62-year-old male with a past medical history of coronary artery disease, insulin dependent type 2 diabetes, peripheral artery disease, hypertension, hyperlipidemia, and osteomyelitis in his left big toe, currently being treated on oral antibiotics who presents to the emergency department today for hyperglycemia, found to have transaminitis and mildly elevated troponin. 1. Transaminitis. Most likely secondary to the rifaximin. He is asymptomatic. I spoke with Dr. Wood who does confirm that rifaximin is most likely the cause and we will stop rifaximin at this time and recheck LFTs in the morning. Low suspicion for infectious process or other serious cause of liver failure. 2. Osteomyelitis of the toe. The toe appears to be healing well. Dr. Wood recommends continuing the doxycycline 100 mg p.o. b.i.d. and discontinue the rifaximin at this time. Dr. Wood will see the patient in consult 3. Indeterminate troponin. The patient is asymptomatic. I do note he has flipped his T-waves in V4 and V5. Plan to trend troponins and EKG. He is asymptomatic at this time. If his troponin continues to increase, we will ask Cardiology to consult. He should be referred for an outpatient stress test at discharged for follow-up 4. Hyperglycemia, unclear cause to why he was so hyperglycemic. There are no signs of acute infection at this time. Continue home dose Lantus 40 units subcu p.m. and lispro sliding scale. Continue to monitor FSBG a.c. and h.s. 5. Anemia, chronic and at baseline. 6. Chronic kidney disease. Creatinine appears to be at baseline at 2.6. 7. Hypertension. The patient is quite hypertensive in the emergency department. I suspect this is secondary to stress. The patient does report he feels very stressed being in the emergency department. He did take his home antihypertensive medications this morning. At this point, his blood pressure is trending down. We will continue to monitor closely and treat as needed. Continue home dose Coreg 6.25 mg p.o. b.i.d., Lasix 20 mg p.o. daily, and Norvasc 10 mg p.o. daily. 8. Hyperlipidemia. Continue Lipitor 80 mg p.o. daily. 9. Peripheral artery disease. Continue Plavix, aspirin. 10. DVT prophylaxis. Heparin subcu. 11. Code status. Full code. 12. Hospital status. Observation. TIME SPENT: Approximately 60 minutes were spent on this admission. ANDREAS POPE, MARIAH [id number]/[facility] #: [id number] [place]
[2018-04-03] MEDS: Carvedilol TAB* 6.25 MG PO SCH (21:27)
--- NOTE | 2018-04-03 23:35 | CONS ---
CONSULTATION REPORT: DATE OF CONSULT: 04/03/18 REQUESTING PROVIDER: Viviana Longoria NP CONSULTING SERVICE: Infectious Disease. REASON FOR CONSULT: Abnormal liver tests. IMPRESSION: 1. Transaminitis and elevated alkaline phosphatase, which is asymptomatic. The differential diagnosis includes rifampin induced. When the blood tests were checked on 03/26/18, the ALT and AST were normal, the alk phos was 150. He does not have any right upper quadrant pain, tenderness, Botello sign, vomiting, or elevated bilirubin. His INR is normal. Platelets are normal. Gallbladder disease seems less likely. 2. Osteomyelitis of the left great toe, on doxycycline and rifampin for about 6 weeks with near resolution of non-pressure chronic ulceration of the great toe. 3. Type 2 diabetes with peripheral neuropathy. RECOMMENDATION: Agree with holding rifampin, follow liver tests. He is going to have further serial troponins given his slight increase in troponin and EKG change. HISTORY OF PRESENT ILLNESS: This is a 62-year-old man with left great toe osteomyelitis and ulceration since the winter. He was initially on doxycycline and then I added rifampin about a month ago. He has had continued improvement in the wound, which is nearly closed up. Since being on rifampin about a month ago, he has had some loose stools and he has had decreased appetite and fatigue during that time as well. No right upper quadrant pain, no abdominal pain or vomiting. This morning, he woke up, has not felt like his usual self except his appetite was actually improved today. He checked his blood sugar and it was not readable on the meter, so he took 10 units of short-acting insulin and came to the emergency room. By then, the glucose was 280. He was found to have alk phos of 790, ALT 249, AST 169, bilirubin 0.4. He had a chest x-ray, which showed no active disease. His troponin was 0.04. He had T-wave changes and so was admitted for rule out MA. He denies any right upper quadrant pain, nausea, vomiting, diarrhea. He has noted a couple of loose stools and decreased appetite for about a month, as well as fatigue for about 6 weeks. PAST MEDICAL HISTORY: 1. Diabetes with neuropathy. 2. Hypertension. 3. Osteomyelitis, left great toe. 4. Coronary artery disease. 5. Hyperlipidemia. 6. Peripheral vascular disease. PAST SURGICAL HISTORY: 1. Status post left lower extremity bypass surgery. 2. Status post spine surgery. 3. Status post appendectomy. MEDICATIONS: 1. Amlodipine. 2. Aspirin. 3. Lipitor. 4. Plavix. 5. Coreg. 6. Lasix. 7. Hydralazine as needed. 8. Insulin glargine. 9. Multivitamins. ALLERGIES: METFORMIN and CONTRAST cause acute kidney injury. FAMILY HISTORY: No recurrent infections. SOCIAL HISTORY: He lives with his in [facility]. He works at [employer]. No travel. No sick contacts. REVIEW OF SYSTEMS: All negative except as noted above. PHYSICAL EXAM: Vital Signs: Temperature 36, heart rate 90, respiratory rate 18 , blood pressure 193/73, and oxygen saturation 100% on room air. In general, he is awake, not in distress. Neurologic: He is oriented x3. Follows all commands. HEENT: There is no conjunctival hemorrhage. Oropharynx without lesions. Neck is supple without mass. Lymph Nodes: There is no inguinal, axillary, or epitrochlear lymphadenopathy. Heart has regular rate and rhythm without murmurs, rubs, or gallops. Lungs are clear to auscultation bilaterally. Abdomen: Soft, nontender, nondistended. There are bowel sounds present. There is no right upper quadrant tenderness, rebound, or Botello sign. Skin: There is no rash or splinter hemorrhages. Musculoskeletal: No spine tenderness to palpation. On the left great toe plantar surface, there is 3-mm ulceration with surrounding normal- appearing skin. LABORATORY DATA: White blood cell count 8, hemoglobin 12, platelets 224. Creatinine 2.6. Please see impressions and recommendations as outlined above, which I discussed with Viviana Longoria NP. Thanks for asking me to see Mr. Louis in consultation. [id number]/[facility] #: [id number] ALVINO
[2018-04-04] MEDS: Heparin VIAL(*) 5000 UNITS/ML VIAL (FIVE THOUSAND) SUBCUT SCH ×2 (05:46→14:01)
[2018-04-04 06:38] LABS: ABS Basophils 0 10^3/ul (0-0.2); ABS Eosinophils 0.4 10^3/ul (0-0.6); ABS Lymphocytes 0.4 10^3/ul (1.0-4.8); ABS Monocytes 0.9 10^3/ul (0-0.8); ABS Nucleated RBC 0 10^3/ul; Eosinophil % 5.2 % (0-6); Hematocrit 35 % (42-52); Hemoglobin 11.9 g/dl (14.0-18.0); Lymphocyte % 6.3 % (25-47); Mean Corpuscular HGB Conc 34 g/dl (31-36); Mean Corpuscular Hemoglobin 28 pg (27-31); Mean Corpuscular Volume 83 fL (80-94); Mean Platelet Volume 7.6 um3 (7.4-10.4); Nucleated Red Blood Cells % 0; Platelet Count 211 10^3/ul (150-450); Red Blood Count 4.21 10^6/ul (4.0-5.4); Red Cell Distribution Width 15 % (10.5-15); White Blood Count 6.7 10^3/ul (3.5-10.8)
[2018-04-04 06:55] LABS: EGFR Non-African American 29.2 (>60)
[2018-04-04] MEDS: Carvedilol TAB* 6.25 MG PO SCH (08:22)
[2018-04-04] MEDS: Insulin LISPRO* 1 UNITS UNIT SUBCUT SCH ×2 (08:26→14:01)
[2018-04-04] MEDS ORDERED: Aspirin TAB* 325 MG PO SCH (09:00)
[2018-04-04] MEDS ORDERED: Atorvastatin* 80 MG TAB PO SCH (09:00)
[2018-04-04] MEDS ORDERED: Clopidogrel TAB* 75 MG PO SCH (09:00)
[2018-04-04] MEDS ORDERED: Multivitamins/Minerals TAB PO SCH (09:00)
[2018-04-04] MEDS ORDERED: amLODIPine TAB* 5 MG PO SCH (09:00)
[2018-04-04] MEDS ORDERED: Furosemide TAB* 20 MG PO SCH (09:00)
--- NOTE | 2018-04-04 10:36 | PN ---
Subjective Date of Service: 04/04/18 Interval History: Patient was seen and examined at bedside. Reports feeling well, wants to go home. Denies any chest pain, palpitations, dyspnea or SOB. His POC glucose check has been reasonable since admission. Troponins tranding up, EKG repeated this AM with some ST changes noted at anterior leads. I did talk to Dr. Roblero who advised getting TTE today and he will see the patient for consultation. Patient denies any RUQ abdominal pain, jaundice, fever or chills. He has no complaints today. Family History: Unchanged from Admission Social History: Unchanged from Admission Past Medical History: Unchanged from Admission Objective Active Medications: Amlodipine Besylate (Norvasc Tab*) 10 mg PO DAILY [facility] Last Admin: 04/04/18 08:22 Dose: 10 mg Aspirin (Aspirin Tab*) 325 mg PO DAILY [facility] Last Admin: 04/04/18 08:22 Dose: 325 mg Atorvastatin Calcium (Lipitor*) 80 mg PO DAILY [facility] Last Admin: 04/04/18 08:22 Dose: 80 mg Carvedilol (Coreg Tab*) 6.25 mg PO BID [facility] Last Admin: 04/04/18 08:22 Dose: 6.25 mg Clopidogrel Bisulfate (Plavix Tab*) 75 mg PO DAILY [facility] Last Admin: 04/04/18 08:22 Dose: 75 mg Dextrose (D50w Syringe 50 Ml*) 12.5 gm IV PUSH .FOR FS < 60 - SS PRN PRN Reason: FS < 60 Furosemide (Lasix Tab*) 20 mg PO DAILY [facility] Last Admin: 04/04/18 08:22 Dose: 20 mg Guaifenesin/Dextromethorphan (Robitussin Dm*) 10 ml PO Q6H PRN PRN Reason: COUGH Last Admin: 04/03/18 21:31 Dose: 10 ml Heparin Sodium (Porcine) (Heparin Vial(*)) 5,000 units SUBCUT Q8HR [facility] Last Admin: 04/04/18 05:46 Dose: 5,000 units Hydralazine HCl (Apresoline Iv*) 5 mg IV SLOW PU Q6H PRN PRN Reason: BLOOD PRESSURE Last Admin: 04/03/18 14:45 Dose: 5 mg Insulin Glargine (Lantus(*)) 40 units SUBCUT BEDTIME [facility] Last Admin: 04/03/18 21:27 Dose: 40 units Insulin Human Lispro (Humalog*) 0 units SUBCUT ACHS [facility] PRN Reason: Protocol Last Admin: 04/04/18 08:26 Dose: Not Given Multivitamins/Minerals (Theragran/Minerals Tab*) 1 tab PO DAILY [facility] Last Admin: 04/04/18 08:23 Dose: 1 tab Vital Signs - 8 hr 04/04/18 04/04/18 03:38 07:57 Temperature 98.7 F 97.8 F Pulse Rate 97 88 Respiratory 16 17 Rate Blood Pressure 148/61 153/70 (mmHg) O2 Sat by Pulse 99 100 Oximetry Oxygen Devices in Use Now: None Result Diagrams: 04/04/18 06:31 04/04/18 06:31 Assess/Plan/Problems-Billing Assessment:
--- NOTE | 2018-04-04 10:57 | ED ---
Ronen Carl Nilda, scribed for Alberto Pillai MD on 04/03/18 at 0809 . HPI Diabetic - HPI Summary HPI Summary: This patient is a 62 year old M presenting to [facility] accompanied by with a chief complaint of acute constant elevated blood sugar since checking blood glucose this morning. The patient rates the pain 0/10 in severity. Symptoms aggravated and alleviated by nothing. Patient reports productive cough (yellow, 2 weeks), loss of appetite, loose stools secondary to abx, urinary frequency, and sneezing. states that since last year, pt had left toe ulcer and has [facility]x (Doxycyclin and Rifampin). He also had recent vascular surgery on LLE. Pt states he follows up with Dr. Viramontes. PMHx includes IDDM (compliant with medications). Pt states he took 40 units Lantis last night before bed and 10 units Humalog at 0615 this morning. Pt states hes had nothing for breakfast today. - History Of Current Complaint Chief Complaint: EDDiabeticProb Time Seen by Provider: 04/03/18 08:07 Hx Obtained From: Patient Onset/Duration: Sudden Onset, Lasting Hours, Still Present Timing: Constant Severity Currently: Moderate Character: Alert Aggravating: Nothing Alleviating: Nothing Associated Signs & Symptoms: Cough Related History: Compliant, DM II, Insulin Requiring - Allergies/Home Medications Allergies/Adverse Reactions: Allergies Allergy/AdvReac Type Severity Reaction Status Date / Time No Known Allergies Allergy Verified 01/03/18 14:50 Home Medications: Home Medications Carvedilol TAB* [Coreg TAB*] 6.25 mg PO BID 04/03/18 [History Confirmed 04/03/18 ] Insulin LISPRO* [HumaLOG*] 10 - 20 units SUBCUT QPM PRN 04/03/18 [History Confirmed 04/03/18] Multivitamins/Minerals TAB* [Theragran/minerals TAB*] 1 tab PO DAILY 04/03/18 [ History Confirmed 04/03/18] RiFAMPin CAP* 300 mg PO BID 04/03/18 [History Confirmed 04/03/18] amLODIPine TAB* [Norvasc 5 mg TAB*] 10 mg PO DAILY 04/03/18 [History Confirmed 04/03/18] PMH/Surg Hx/FS Hx/Imm Hx Endocrine/Hematology History: Reports: Hx Diabetes Cardiovascular History: Reports: Hx Coronary Artery Disease, Hx Hypercholesterolemia, Hx Hypertension, Hx Peripheral Vascular Disease, Other Cardiovascular Problems/Disorders - Hx of 3 stents, [place] Denies: Hx Pacemaker/ICD History: Denies: Hx Renal Disease Comment Only: Other Problems/Disorders - Renal failure May 2017 Musculoskeletal History: Reports: Other Musculoskeletal History - spinal surgery Sensory History: Reports: Hx Contacts or Glasses Denies: Hx Hearing Aid Opthamlomology History: Reports: Hx Contacts or Glasses Neurological History: Reports: Hx Migraine Psychiatric History: Denies: Hx Panic Disorder - Surgical History Surgery Procedure, Year, and Place: appendectomy, herniated disk surg. HEART STENTS 1996 [place]. LEFT LEG BYPASS JAGDEEP 08/2017 Infectious Disease History: No Infectious Disease History: Denies: Traveled Outside the [place] in Last 30 Days - Family History Known Family History: Positive: Cardiac Disease, Diabetes Family History: FHx of [place] - Social History Alcohol Use: Daily Alcohol Amount: 6 beers a day Hx Substance Use: No Substance Use Type: Reports: None Hx Tobacco Use: No Smoking Status (MU): Former Smoker Review of Systems Positive: Other - elevated blood sugar. Negative: Fever, Chills Negative: Erythema Positive: Other - sneezing. Negative: Sore Throat Negative: Chest Pain Positive: Cough. Negative: Shortness Of Breath Positive: Other - loose stools, loss of appetite. Negative: Abdominal Pain, Vomiting, Nausea Positive: frequency. Negative: dysuria, hematuria Positive: Other - left big toe ulcer. Negative: Myalgia, Edema Negative: Rash Neurological: Other - negative dizziness All Other Systems Reviewed And Are Negative: Yes Physical Exam - Summary Physical Exam Summary: Constitutional: Well-developed, Well-nourished, Alert. (-) Distressed Skin: Warm, Dry HENT: Normocephalic; Atraumatic, Dry oral mucosa Eyes: Conjunctiva normal Neck: Musculoskeletal ROM normal neck. (-) JVD, (-) Stridor, (-) Tracheal deviation Cardio: Rhythm regular, rate normal, Heart sounds normal; Intact distal pulses; The pedal pulses are 2+ and symmetric. Radial pulses are 2+ and symmetric. (-) Murmur Pulmonary/Chest wall: Effort normal. (-) Respiratory distress, (-) Wheezes, (-) Rales Abd: Soft, (-) Tenderness, (-) Distension, (-) Guarding, (-) Rebound Musculoskeletal: (-) Edema, Left big toe ulcer that's well healing. Lymph: (-) Cervical adenopathy Neuro: Alert, Oriented x3 Psych: Mood and affect Normal Triage Information Reviewed: Yes Vital Signs On Initial Exam: Initial Vitals Temp Pulse Resp BP Pulse Ox 98 F 84 18 135/66 98 04/03/18 07:50 04/03/18 07:50 04/03/18 07:50 04/03/18 07:50 04/03/18 07:50 Vital Signs Reviewed: Yes Diagnostics - Vital Signs Vital Signs Temp Pulse Resp BP Pulse Ox 04/03/18 07:50 98 F 84 18 135/66 98 - Laboratory Result Diagrams: 04/03/18 08:37 04/03/18 09:39 Lab Statement: Any lab studies that have been ordered have been reviewed, and results considered in the medical decision making process. - Radiology CXR Radiology Interpretation Completed By: Radiologist - CXR reveals NAD. Dr. Pillai has reviewed this radiology report. - EKG 0820 Cardiac Rate: NL - 78 bpm EKG Rhythm: Sinus Rhythm EKG Interpretation: new TWI V4-V6 Re-Evaluation - Re-Evaluation First Eval Re-Evaluation Time: 11:49 Change: Unchanged Comment: updated pt on labs and Tx plan. Diabetic Course/Dx - Course Assessment/Plan: No signs of DKA. No signs of hypoosmolar coma. Pt not feeling right. No infectious etiology found. Elevated trop and CAD r/o acute coronary syndrome. Elevated transamylases possibly related to Rifampin. - Diagnoses Provider Diagnoses: Hyperglycemia, Abnormal liver function test - Physician Notifications Discussed Care Of Patient With: Chanelle Hu - Hospitalist Time Discussed With Above Provider: 11:21 Instructed by Provider To: Admit As Inpatient Discharge - Sign-Out/Discharge Documenting (check all that apply): Discharge/Admit/Transfer - Discharge Plan Condition: Stable Disposition: ADMITTED TO [facility] documentation as recorded by the Ronen taylor Nilda accurately reflects the service I personally performed and the decisions made by me, Alberto Pillai MD.
[2018-04-04 12:03] VITALS: BP 146/65
--- NOTE | 2018-04-04 13:24 | ECHO ---
Patient: OPAL SILVEIRA [facility] Rec#: [id number] : 1955 Date: 04/04/2018 Age: 62y Height: 175.26 cm / 69.0 in Weight: 80.29 kg / 177.0 lbs Sex: M BSA: 1.96 Room#: 444 Admit Date#: 04/03/2018 Type: Inpatient Referring: Kole Gross Reading: Jose Roblero DO Manager Produce: Ellen Mitchell,EVICS,RDMS CC: Philip Farmer MD Transthoracic Echocardiogram Indication: Abnormal EKG, Elevated TROP BP: 153/70 HR: 72 Rhythm: NSR with PVCs Findings History: CAD, HTN, HLD, DM, PAD, CKD Technical Comments: The study quality is good. Left Ventricle: The left ventricular chamber size is normal. Moderate concentric left ventricular hypertrophy is observed.Prominent apical false tendon Global left ventricular wall motion and contractility are within normal limits. Left ventricular systolic function is at the lower limits of normal. The estimated ejection fraction is 50-55%. Abnormal left ventricular diastolic filling is observed, consistent with impaired relaxation. Left Atrium: The left atrium is mild to moderately dilated. Right Ventricle: The right ventricular chamber size and systolic function are within normal limits. Right Atrium: The right atrium is slightly dilated. Aortic Valve: The aortic valve is trileaflet. Systolic excursion of the aortic valve is normal. There is mild aortic regurgitation. There is no evidence of aortic stenosis. Mitral Valve: The mitral valve leaflets are mildly thickened. There is a trace of mitral regurgitation. There is no evidence of mitral stenosis. Tricuspid Valve: The tricuspid valve leaflets are normal. There is trace tricuspid regurgitation. Unable to estimate the right ventricular systolic pressure. Pulmonic Valve: The pulmonic valve appears normal. There is a trace pulmonic regurgitation. Pericardium: There is no significant pericardial effusion. Aorta: The aortic root appears normal. The aortic arch is not well visualized. Pulmonary Artery: The main pulmonary artery appears normal. Venous: The inferior vena cava appears normal in size. There is a greater than 50% respiratory change in the inferior vena cava dimension. Conclusions The left ventricular chamber size is normal. Moderate concentric left ventricular hypertrophy is observed. Global left ventricular wall motion and contractility are within normal limits. Left ventricular systolic function is at the lower limits of normal. The estimated ejection fraction is 50-55%. The left atrium is mild to moderately dilated. The right ventricular chamber size and systolic function are within normal limits. No significant valvular abnormalities noted. Compared to prior study from 11/2017, no clinically significant changes noted Measurements Name Value Normal Range RVIDd (AP) 2D 2.3 cm (0.9 - 2.6) RVDdMajor (2D) 3 cm (2.2 - 4.4) RAd ISD 4CH 5.6 cm (3.4 - 4.9) RA (A4C)W 4.5 cm (2.9 - 4.6) IVSd (2D) 1.6 cm (0.6 - 1) LVPWd (2D) 1.4 cm (0.6 - 1) LVIDd (2D) 4.8 cm (3.6 - 5.4) LVIDs (2D) 3.6 cm - LV FS (2D) 24 % (25 - 45) Aortic Annulus 2.2 cm (1.4 - 2.6) Ao root diameter (2D) 3.2 cm (2.1 - 3.5) Ascending Ao 3.2 cm (2.1 - 3.4) LA dimension (AP) 2D 4.3 cm (2.3 - 3.8) LAd ISD 4CH 6 cm (2.9 - 5.3) LA ISD 4CH W 4.5 cm (2.5 - 4.5) Name Value Normal Range LA ESV SP 4CH (A/L) 61.93 ml - LA ESV SP 2CH (A/L) 57.86 ml - LA ESV BP (A/L) 64.48 ml - LA ESV BP (A/L) index 33 ml/m2 - LA ESV SP 4CH (MOD) 57.84 ml - LA ESV SP 2CH (MOD) 53.77 ml - Name Value Normal Range MV E-wave Vmax 0.7 m/sec - MV deceleration time 250 msec - MV A-wave Vmax 1 m/sec - MV E:A ratio 0.8 ratio - P. vein S-wave Vmax 0.4 m/sec - P. vein D-wave Vmax 0.3 m/sec - P. vein S:D Vmax ratio 1.4 ratio - P. vein A-wave duration 97 msec - LV septal e' Vmax 0.04 m/sec - LV lateral e' Vmax 0.07 m/sec - LV E:e' septal ratio 19 ratio - LV E:e' lateral ratio 10 ratio - Name Value Normal Range AV Vmax 1.5 m/sec - AV VTI 35 cm - AV peak gradient 9 mmHg - AV mean gradient 4.9 mmHg - LVOT Vmax 0.7 m/sec - LVOT VTI 16.5 cm - LVOT peak gradient 2 mmHg - LVOT mean gradient 1.1 mmHg - AR PHT 370.51 msec - AR peak gradient 63.64 mmHg - Name Value Normal Range RAP 8 mmHg - IVC diameter 1.5 cm - Name Value Normal Range PV Vmax 0.8 m/sec - PV peak gradient 2.6 mmHg -
--- NOTE | 2018-04-04 15:45 | CONSULT ---
Subjective Date of Service: 04/04/18 Interval History: Admission Date: 04/03/18 Consult date 04/04/2018 Provider: Hospitalist service PMD: Dr. Farmer Forestry Technician: Dr. Bullock CHIEF COMPLAINT: Hyperglycemia Reason for consult: Detectable troponin level in the setting of an abnormal EKG HISTORY OF PRESENT ILLNESS: Mr. Lousi is a 62-year-old man with a history as below came to hospital because glucose was so high could not register on monitor. He was found with hepatitis felt to be related to rifampin. Secondary prevention statin has been held. He had episode of volume overload related to HFpEF/CKD admission this November but since then has been doing well without any chest discomfort, dyspnea , sustained edema, palpitations or syncope. Glucoses have improved, rifampin is held and he wants to go home and follow up with his insurance policy issue clerk Dr. Bullock on 04/16/2018 already scheduled. PAST MEDICAL HISTORY: 1. Peripheral artery disease status post left lower extremity bypass surgery with subsequent chronic wound in his left big toe, which was suspected to have osteomyelitis and is on current long-term antibiotic treatment. 2. Hypertension. 3. Hyperlipidemia. 4. Insulin dependent type 2 diabetes. 5. Chronic kidney disease. Baseline creatinine 2.5. 6 CAD s/p PCI in PAST SURGICAL HISTORY: 1. Left lower extremity bypass surgery. 2. Back surgery. 3. Status post appendectomy. ALLERGIES: METFORMIN with CONTRAST DYE caused acute renal failure, ACei caused hyperkalemia FAMILY HISTORY: Mother at age 84 of cancer. His father had peripheral artery disease and coronary artery disease. His brother secondary to esophageal cancer. SOCIAL HISTORY: The patient is a former smoker, quitting approximately 20 years ago. He reports he drinks 3 glasses of wine per day. 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 He is and lives with his , who is his healthcare proxy. Her number is [phone]. He has 2 children. He raises [employer]pac[employer] Medications Active Medications: Amlodipine Besylate (Norvasc Tab*) 10 mg PO DAILY [facility] Last Admin: 04/04/18 08:22 Dose: 10 mg Aspirin (Aspirin Tab*) 325 mg PO DAILY [facility] Last Admin: 04/04/18 08:22 Dose: 325 mg Atorvastatin Calcium (Lipitor*) 80 mg PO DAILY [facility] Last Admin: 04/04/18 08:22 Dose: 80 mg Carvedilol (Coreg Tab*) 6.25 mg PO BID [facility] Last Admin: 04/04/18 08:22 Dose: 6.25 mg Clopidogrel Bisulfate (Plavix Tab*) 75 mg PO DAILY [facility] Last Admin: 04/04/18 08:22 Dose: 75 mg Dextrose (D50w Syringe 50 Ml*) 12.5 gm IV PUSH .FOR FS < 60 - SS PRN PRN Reason: FS < 60 Furosemide (Lasix Tab*) 20 mg PO DAILY [facility] Last Admin: 04/04/18 08:22 Dose: 20 mg Guaifenesin/Dextromethorphan (Robitussin Dm*) 10 ml PO Q6H PRN PRN Reason: COUGH Last Admin: 04/03/18 21:31 Dose: 10 ml Heparin Sodium (Porcine) (Heparin Vial(*)) 5,000 units SUBCUT Q8HR [facility] Last Admin: 04/04/18 14:01 Dose: 5,000 units Hydralazine HCl (Apresoline Iv*) 5 mg IV SLOW PU Q6H PRN PRN Reason: BLOOD PRESSURE Last Admin: 04/03/18 14:45 Dose: 5 mg Insulin Glargine (Lantus(*)) 40 units SUBCUT BEDTIME [facility] Last Admin: 04/03/18 21:27 Dose: 40 units Insulin Human Lispro (Humalog*) 0 units SUBCUT ACHS [facility] PRN Reason: Protocol Last Admin: 04/04/18 14:01 Dose: 4 units Multivitamins/Minerals (Theragran/Minerals Tab*) 1 tab PO DAILY [facility] Last Admin: 04/04/18 08:23 Dose: 1 tab Home Medications: Clopidogrel TAB* [Plavix TAB*] 75 mg PO DAILY 12/20/16 [History Confirmed ] Aspirin TAB* [Aspirin 325 MG TAB*] 325 mg PO DAILY 12/22/16 [History Confirmed 04/03/18] Insulin GLARGINE(*) [Lantus(*)] 40 units SUBCUT BEDTIME 11/27/17 [History Confirmed 04/03/18] Furosemide TAB* [Lasix TAB*] 20 mg PO DAILY 30 Days #30 tab 11/29/17 [Rx Confirmed 04/03/18] DOXYcycline CAP(*) [DOXYcycline 100MG CAP(*)] 100 mg PO BID #14 cap 04/09/18 [ Rx Confirmed 04/03/18] Carvedilol TAB* [Coreg TAB*] 6.25 mg PO BID 04/03/18 [History Confirmed 04/03/18 ] Insulin LISPRO* [HumaLOG*] 10 - 20 units SUBCUT QPM PRN 04/03/18 [History Confirmed 04/03/18] Multivitamins/Minerals TAB* [Theragran/minerals TAB*] 1 tab PO DAILY 04/03/18 [ History Confirmed 04/03/18] amLODIPine TAB* [Norvasc 5 mg TAB*] 10 mg PO DAILY 04/03/18 [History Confirmed 04/03/18] Review of Systems - Measurements Intake and Output: Intake and Output Last 24 Hours 04/02/18 04/03/18 04/04/18 04/05/18 06:59 06:59 06:59 06:59 Intake Total 1630 690 Balance 1630 690 Weight 175 lb 14.4 oz Intake: Oral 1630 690 Other: Estimated Void Medium # Bowel Movements 0 # Voids 2 - Review of Systems Constitutional Symptoms: Negative: Weight Gain, Weight Loss, Weakness Dermatology: Negative: Rash, Skin Lesions HEENT: Negative: Change in Hearing, Vertigo Eyes: Negative: Change in Vision, Double Vision Thyroid: Negative: Constipation, Palpitations, Primary Hypothyroidism, Primary Hyperthyroidism, Weight Loss, Weight Gain Pulmonary: Positive: Cough Negative: Sputum, Hemoptysis, Wheezing, Respiratory Distress, Shortness of Breath, Asthma, Exercise Intolerance Cardiology: Positive: Peripheral Vascular Dis Negative: Chest Pain, Shortness of Breath, Palpitations, Swelling of Ankles, Edema, Faintness, Syncope, Claudication, Paroxysmal Nocturnal Dyspnea, Orthopnea Gastroenterology: Negative: Abdominal Pain, Nausea, Vomiting, Anorexia Genital - Urinary: Negative: Dysuria, Nocturia Musculoskeletal: Negative: Joint Pain, Joint Stiffness Endocrinology: Positive: Diabetes, Hyperglycemia Negative: Polydipsia, Polyuria, Pituitary Disease Hematologic/Lymphatic: Positive: Use of Antiplatelet Drugs Negative: Use of Anticoagulant Neurology: Negative: Change in Speech, Change in Sphincter Function, Numbness\ Paresthesiae, Unexplained Weakness, Hx Seizures Psychiatry: Negative: Unusual Anxiety, Suicidal Ideation Allergic/Immunologic: Negative: Hx HIV, Immunocompromise Review of Systems Statement: All other review of systems negative, unless stated above. Objective Vital Signs: Temp Pulse Resp BP Pulse Ox 98.6 F 71 16 146/65 99 04/04/18 11:18 04/04/18 11:18 04/04/18 11:18 04/04/18 11:18 04/04/18 11:18 Oxygen Devices in Use Now: None Appearance: nad, pleasant Ears/Nose/Mouth/Throat: Clear Oropharnyx Neck: NL Appearance and Movements; NL JVP, Trachea Midline Respiratory: Symmetrical Chest Expansion and Respiratory Effort, Clear to Auscultation Cardiovascular: RRR, - - +S4, no edema Abdominal: NL Sounds; No Tenderness; No Distention Extremities: No Edema, - - formal lower extremity vascular exam not performed Skin: - - toe not directly examined, otherwise no lesions Neurological: Alert and Oriented x 3 Laboratory Results: 04/04/18 06:31 04/04/18 06:31 INR (Anticoag Therapy) 0.88 (0.77-1.02) 04/03/18 08:37 APTT 32.0 seconds (26.0-36.3) 04/03/18 08:37 Total Bilirubin 0.40 mg/dL (0.2-1.0) 04/04/18 06:31 AST 325 U/L (13-39) H 04/04/18 06:31 ALT 309 U/L (7-52) H 04/04/18 06:31 Alkaline Phosphatase 847 U/L (34-104) H 04/04/18 06:31 Total Protein 5.4 g/dL (6.4-8.9) L 04/04/18 06:31 Albumin 2.5 g/dL (3.2-5.2) L 04/04/18 06:31 Globulin 2.9 g/dL (2-4) 04/04/18 06:31 Albumin/Globulin Ratio 0.9 (1-3) L 04/04/18 06:31 04/03/18 04/03/18 04/03/18 08:37 09:39 14:46 Troponin I Cancelled 0.04 H* 0.03 04/03/18 17:32 Troponin I 0.04 H* Diagnostic Imaging: Chest x-ray, impression: No active disease. EKG shows LVH with strain pattern that aside from differences in lead placement grossly unchanged on repeat and consistent with LVH seen on echocardiogram. Echo this admission: Moderate LVH, LVEF 50-55% no WMA, mild-mod dilated LA, no significant valvular disease, normal RV size and function. Stress MPI 11/2017 I reviewed and my impression: Inferior/inferoapical defect worse on stress imaging, diaphragmatic attenuation potential noted, normalizes on AC imaging unfortunately prone imaging not applied remains equivocal, low risk. LVEF normal by echo, TID index normal. Low risk study. Assessment/Plan Patient has no evidence of ACS and is currently asymptomatic from a cardiac standpoint. Elevated troponin likely related to underlying known atherosclerotic epicardial CAD in setting of LVH/hypertensive heart disease and renal insufficiency. Once LFT's normalized off rifampin would restart statin as an outpatient with close LFT's monitoring. He may also benefit from an increase of his coreg dose for better BP control. I think adding diltiazem on top of norvasc would also be reasonable. Thank you for allowing [facility] to participate in the cardiovascular care of this patient. Please do not hesitate to contact me with questions or concerns.
--- NOTE | 2018-04-05 11:14 | DS ---
CC: Dr. Roblero; Dr. Wood; Dr. Farmer * DISCHARGE SUMMARY: DATE OF ADMISSION: 04/03/18 DATE OF DISCHARGE: 04/04/18 PATIENT OF: Chanelle Pham MD ATTENDING HOSPITALIST: Ulises Johnson MD * (DICTATED BY EMMANUEL GARCIA) PRIMARY CARE PROVIDER: Dr. Farmer. INFECTIOUS DISEASE: Dr. Wood. ADMISSION DIAGNOSES: 1. Hyperglycemia. 2. History of peripheral artery disease. 3. Hypertension. 4. Hyperlipidemia. 5. Insulin-dependent diabetes mellitus. 6. Chronic kidney disease with baseline creatinine at 2.5. DISCHARGE DIAGNOSES: 1. Hyperglycemia. 2. History of peripheral artery disease. 3. Hypertension. 4. Hyperlipidemia. 5. Insulin-dependent diabetes mellitus. 6. Chronic kidney disease with baseline creatinine at 2.5. 7. Elevated troponin. 8. Coronary artery disease. HISTORY OF PRESENT ILLNESS: Mr. Louis is a 62-year-old gentleman with past medical history significant for hypertension, coronary artery disease, hyperlipidemia, peripheral arterial disease and insulin-dependant type 2 diabetes mellitus as well as osteomyelitis, who is currently under treatment with a doxycycline and rifampin with Dr. Wood, presents to the emergency room yesterday with reports of hyperglycemia. The patient apparently checked his blood sugar at home and it was out of range. He became concerned, went to the emergency room. Initially, his blood glucose showed levels greater than 444 and then underwent a serum lab draw revealing blood glucose of 283. The patient notes that he gave himself 10 units of Humalog after the initial out of range reading. Upon evaluation in the emergency room, he was noted to have elevated liver enzymes with AST of 169 and ALT of 249. His blood work about a week ago notes normal LFTs. In the emergency department, he was noted to have a borderline troponin with value of 0.04; however, the patient denied any symptoms of chest pain or shortness of breath. He does have history of chronic kidney disease given his diabetes and hypertension with baseline creatinine of 2.5. He denied any shortness of breath, chest pain, orthopnea, or any other associated symptoms. Given his ongoing symptoms and all the laboratory abnormalities, the patient was admitted for observation. HOSPITAL COURSE: The patient was admitted under hospitalist services for observation at the telemetry unit. Dr. Wood was consulted regarding the possibility of rifampin causing his elevated transaminases. Rifampin was discontinued upon Dr. Wood's request and we will continue his doxycycline as planned. The patient had series troponin withdrawn that was consistently borderline elevated at 0.03 and 0.04. He had repeated EKG the next morning that revealed some ST elevation at the anterior leads for which a consultation with Dr. Jose Roblero was obtained and an echocardiogram was done this afternoon. The patient continued to have no symptoms of chest pain. He was ambulatory, out of bed and in stable condition. His laboratory workup was repeated the following morning with further increase of his LFTs with values of 309 and 325 for ALT and AST respectively. His alkaline phosphatase was elevated as well at 847. The patient denied any symptoms of abdominal pain, jaundice, nausea, or vomiting. His LFTs will be rechecked this Monday to document resolution, otherwise it will warrant may be gallbladder workup. The patient continued to do well and report of his transthoracic echocardiogram was obtained that revealed normal ventricular contraction as well as good ejection fraction of 50% to 55%. There was no abnormal wall motion. After discussing with Dr. Roblero, the patient will be cleared to go home today. Recommendation was made to stop his statin therapy until he sees Dr. Bullock in 2 weeks. We will also stop his rifampin per Dr. Wood and continue doxycycline for the time being. I am also planning to repeat his LFTs this Monday and we will CC the results to Dr. Wood as well. The patient understands and he wishes to go home and will follow up with Dr. Bullock on April 18 and primary care physician in 1 to 2 weeks as planned. DISCHARGE MEDICATIONS: Include: 1. Norvasc 10 mg p.o. daily. 2. Aspirin 325 mg p.o. daily. 3. Coreg 6.25 mg p.o. b.i.d. 4. Plavix 75 mg p.o. daily. 5. Doxycycline 100 mg p.o. b.i.d. 6. Lasix 20 mg p.o. daily. 7. Lantus insulin 40 units subcu q.p.m. 8. Insulin Humalog 10 to 20 units subcu per sliding scale. 9. Multivitamin 1 tablet p.o. daily. EMMANUEL GARCIA [id number]/[facility] #: [id number] ALVINO
== END 2018-04-04 16:42 | disposition home or self-care (01) ==
LOC: ED 07:49 → MEDTELE 11:25
PROVIDERS: ADMIT Internal Medicine; ATTEND Internal Medicine
DX: E11.65 Type 2 diabetes mellitus with hyperglycemia (principal); Z79.4 Long term (current) use of insulin; R05 Cough; Z87.891 Personal history of nicotine dependence; I25.10 Atherosclerotic heart disease of native coronary artery without angina pectoris; I73.9 Peripheral vascular disease, unspecified; I10 Essential (primary) hypertension; E78.5 Hyperlipidemia, unspecified; N18.9 Chronic kidney disease, unspecified; R79.89 Other specified abnormal findings of blood chemistry
CPT/HCPCS: 36415; 71045; 80053; 81003; 81015; 82803; 82947; 83605; 84484; 85025; 85610; 85730; 87040; 93005; 93306; 96374; 99284; A9270-GY; G0378; J0360; J1644

== ENCOUNTER 2018-09-10 06:34 | Emergency (ER) | payer BC ==
[2018-09-10 07:39] LABS: ABS Basophils 0.1 10^3/ul (0-0.2); ABS Eosinophils 0.3 10^3/ul (0-0.6); ABS Lymphocytes 0.9 10^3/ul (1.0-4.8); ABS Monocytes 0.7 10^3/ul (0-0.8); ABS Neutrophils 8.4 10^3/ul (1.5-7.7); ABS Nucleated RBC 0 10^3/ul; Eosinophil % 3.3 % (0-6); Hematocrit 49 % (42-52); Hemoglobin 16.2 g/dl (14.0-18.0); Lymphocyte % 8.5 % (25-47); Mean Corpuscular HGB Conc 33 g/dl (31-36); Mean Corpuscular Hemoglobin 28 pg (27-31); Mean Corpuscular Volume 85 fL (80-94); Mean Platelet Volume 8.6 um3 (7.4-10.4); Nucleated Red Blood Cells % 0.4; Platelet Count 249 10^3/ul (150-450); Red Blood Count 5.77 10^6/ul (4.00-5.40); Red Cell Distribution Width 14 % (10.5-15); White Blood Count 10.4 10^3/ul (3.5-10.8)
--- NOTE | 2018-09-10 07:42 | ED ---
HPI Diabetic - HPI Summary HPI Summary: Patient presents with hypoglycemia via ambulance. His reports she went out to the living room this morning and found him on the couch in a position he is not normally in although it is not unusual for him to sleep on the couch. She tried to talk to him but he was offering only limited responses and she was concerned about his mentation. She also reports he was sweating and not acting like himself. He has type 2 diabetes and uses insulin and so she was concerned he may have had high blood sugar as she noticed his pill box had not been emptied for Monday night. When EMS arrived they found his blood sugar was 36 and administer dextrose which is since brought his blood sugar up to 131. Had a "couple glasses of wine" last night - told nurse he drinks "at least 6 beers a night". No h/o hypoglycemia - if anything, has had episodes of high glucose. No recent illness/wounds or medications. does not believe he fell during this episode - no signs of struggle or injury (ie. bruising, bleeding, focal weakness /pain, etc) NOTE: admits pt has been having "low sugar episodes" in the mornings - they have been reducing his insulin through PCP but haven't seen him in 1 year. Admit he may actually be a type 1 diabetic as he was dx'd in his 20's and has always been on insulin. 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 - - Allergies/Home Medications Allergies/Adverse Reactions: Allergies Allergy/AdvReac Type Severity Reaction Status Date / Time No Known Allergies Allergy Verified 01/03/18 14:50 PMH/Surg Hx/FS Hx/Imm Hx Previously Healthy: Yes Endocrine/Hematology History: Reports: Hx Anticoagulant Therapy - plavix, Hx Diabetes - uses insulin Cardiovascular History: Reports: Hx Coronary Artery Disease - stents placed, Hx Hypercholesterolemia, Hx Hypertension, Hx Peripheral Vascular Disease - bypass, Other Cardiovascular Problems/Disorders - Hx of 3 stents, [place] Denies: Hx Pacemaker/ICD GI History: Denies: Hx Cirrhosis History: Reports: Hx Chronic Renal Failure - stage 3 followed w/ nephrology Denies: Hx Renal Disease Comment Only: Other Problems/Disorders - Renal failure May 2017 Musculoskeletal History: Reports: Other Musculoskeletal History - spinal surgery Sensory History: Reports: Hx Contacts or Glasses Denies: Hx Hearing Aid Opthamlomology History: Reports: Hx Contacts or Glasses Neurological History: Reports: Hx Migraine Denies: Hx Seizures Psychiatric History: Denies: Hx Panic Disorder - Surgical History Surgery Procedure, Year, and Place: appendectomy, herniated disk surg. HEART STENTS 1996 [place]. LEFT LEG BYPASS JAGDEEP 08/2017 Infectious Disease History: No Infectious Disease History: Denies: Traveled Outside the [place] in Last 30 Days - Family History Known Family History: Positive: Cardiac Disease, Diabetes Family History: FHx of [place] - Social History Lives: With Family Alcohol Use: Daily Alcohol Amount: 6 beers a day Hx Substance Use: No Substance Use Type: Reports: None Hx Tobacco Use: Yes - currently chew tobacco Smoking Status (MU): Former Smoker Type: Smokeless Tobacco Review of Systems Constitutional: Other - sweats Positive: Chills, Fatigue. Negative: Fever ENT: Negative Cardiovascular: Negative Negative: Palpitations, Chest Pain Respiratory: Negative Negative: Shortness Of Breath, Cough Gastrointestinal: Negative Negative: Abdominal Pain, Vomiting, Diarrhea, Nausea Genitourinary: Negative Musculoskeletal: Negative Skin: Negative Neurological: Other - confused but calm Psychological: Other - calm All Other Systems Reviewed And Are Negative: Yes Physical Exam Triage Information Reviewed: Yes Vital Signs On Initial Exam: Initial Vitals Temp Pulse Resp BP Pulse Ox 96.8 F 59 12 186/74 96 09/10/18 06:37 09/10/18 06:37 09/10/18 06:37 09/10/18 06:37 09/10/18 06:37 Vital Signs Reviewed: Yes Appearance: Positive: No Pain Distress, Well-Nourished, Ill-Appearing - covered in blankets - reports he's cold; mentation is laggin and reports this is not normal for him Skin: Positive: Warm, Skin Color Reflects Adequate Perfusion - moist Head/Face: Positive: Normal Head/Face Inspection Eyes: Positive: Normal, EOMI, BRITTNEE - no photophobia, Conjunctiva Clear ENT: Positive: Normal ENT inspection, Hearing grossly normal, Pharynx normal - atraumatic, TMs normal - no hemotympanum, Uvula midline. Negative: Nasal congestion, Nasal drainage, Tonsillar swelling, Tonsillar exudate, Trismus, Muffled voice Dental: Positive: Other - dentures Neck: Positive: Supple, Nontender, No Lymphadenopathy Respiratory/Lung Sounds: Positive: Clear to Auscultation, Breath Sounds Present. Negative: Rales, Rhonchi, Wheezes Cardiovascular: Positive: Normal, RRR, S1, S2. Negative: Murmur, Rub, Leg Edema Left, Leg Edema Right Abdomen Description: Positive: Nontender, No Organomegaly, Soft Bowel Sounds: Positive: Present Musculoskeletal: Positive: Normal, Strength/ROM Intact Neurological: Positive: Sensory/Motor Intact, CN Intact II-III, Facial Symmetry , Speech Normal. Negative: Alert, Oriented to Person Place, Time - person and place - not time - does not recall the year but is aware of his location and the president Psychiatric: Positive: Normal - calm and cooperative Diagnostics - Vital Signs Vital Signs Temp Pulse Resp BP Pulse Ox 09/10/18 07:00 63 11 97 09/10/18 06:39 59 13 186/74 97 09/10/18 06:37 96.8 F 61 11 186/74 100 - Laboratory Result Diagrams: 09/10/18 07:26 09/10/18 07:26 Lab Statement: Any lab studies that have been ordered have been reviewed, and results considered in the medical decision making process. Re-Evaluation - Re-Evaluation First Eval Change: Improved - mentation is improving s/p eating a sandwhich, drinking milk Diabetic Course/Dx - Course Course Of Treatment: ECG: Sinus ric, 57 bpm, no ST elevations - unchanged from previous on 04/03/2018. Troponin 0.01. Labs: slightly low pH - most likely d/t shallow/reduced breathing w/ hypoglycemia - pulse ox is >95% consistently. All other labs are WNL or normal for him based on trends (poor renal function). Glucose went from 68 to 90's to 200's over his course of stay. Mentation improved w/ increase in glucose. Discussed w/ Dr. Robles who agrees pt may be d /c'd w/ reduction in insulin and close f/u w/ PCP. Also recommended endocrinology referral EMM[facility] as his diabetes is not well controlled. She agrees w / plan. - Diagnoses Provider Diagnoses: Hypoglycemia, Diabetes Discharge - Sign-Out/Discharge Documenting (check all that apply): Patient Departure - Discharge Plan Condition: Stable Disposition: HOME Patient Education Materials: Hypoglycemia in a Person with Diabetes (ED) Referrals: Philip Farmer MD [Primary Care Provider] - Bao Keating MD [Medical Doctor] - Ivy Siddiqui NP [Nurse Practitioner] - Additional Instructions: The definitive cause of your low blood sugar was not identified today however there is a very high suspicion that you are using too much insulin. It is very important that you follow-up with your primary care providercall today for recommendation on adjusted dose of insulin. If you are not able to get through or they're not able to give you an adjusted dose today, at least reduced to 20 units from your typical 35 units and check your blood sugars throughout the day. It is also important that you follow-up with an superintendent operations division - this is a person who specializes in diabetes management. You have been given 2 names today - Dr. Keating and Ivy Siddiqui - call today to schedule a consult. Make sure you are eating well-balanced meals including complex carbohydrates high in fiber (at least 3 grams per serving), healthy fats (ie. avocado, nuts, olive oil, etc) and protein (ie. eggs, meat, etc). It is also important that you stay hydrated with water and avoid alcohol until further evaluation as alcohol can drop your blood sugar as well. You may also avoid stimulants which can increase your metabolism and affect your blood sugar - these include but are not limited to coffee, tea, soda, chocolate. If you develop symptoms of fatigue, sweating, confusion, check your blood sugar right away and make sure to have a sugary snack (ie. peanut butter, orange juice , etc) and return to the emergency department. - Billing Disposition and Condition Condition: STABLE Disposition: Home
[2018-09-10] MEDS ORDERED: Carvedilol TAB* 6.25 MG PO ONE (07:49)
[2018-09-10] MEDS ORDERED: amLODIPine TAB* 5 MG PO ONE (07:49)
[2018-09-10 07:56] LABS: EGFR Non-African American 23.5 (>60)
[2018-09-10 10:48] LABS: Urine Appearance Clear; Urine Blood Negative (Negative); Urine Color Yellow; Urine Ketones Negative (Negative); Urine Protein 2+(100 mg/dL) (Negative); Urine Red Blood Cell Absent (Absent); Urine Specific Gravity 1.012 (1.010-1.030); Urine Urobilinogen Negative (Negative); Urine White Blood Cell Absent (Absent)
[2018-09-10 11:20] VITALS: BP 155/64
== END 2018-09-10 11:20 | disposition home or self-care (01) ==
LOC: ED 06:34
DX: E11.649 Type 2 diabetes mellitus with hypoglycemia without coma (principal); E11.22 Type 2 diabetes mellitus with diabetic chronic kidney disease; Z79.4 Long term (current) use of insulin; I12.9 Hypertensive chronic kidney disease with stage 1 through stage 4 chronic kidney disease, or unspecified chronic kidney disease; N18.3 Chronic kidney disease, stage 3 (moderate); Z79.02 Long term (current) use of antithrombotics/antiplatelets; I25.10 Atherosclerotic heart disease of native coronary artery without angina pectoris; I73.9 Peripheral vascular disease, unspecified; F17.220 Nicotine dependence, chewing tobacco, uncomplicated
CPT/HCPCS: 36415; 80053; 80320; 81003; 81015; 82803; 83605; 83735; 84484; 85025; 86140; 93005; 99283; A9270-GY; G0480

== ENCOUNTER 2019-05-22 09:32 | Observation (INO) | payer BC ==
--- NOTE | 2019-05-22 10:02 | ED ---
Shortness of Breath - HPI Summary HPI Summary: The patient is a 63 y/o M presenting to [facility] accompanied by with a chief complaint of gradual onset SOB over the past few weeks with worsening this morning. He reports that he began seeing Dr. Moyer concerning chronic renal failure, and she placed him on iron infusion treatments, which he was supposed to get one of today. Since then, he has been having intermittent episodes of SOB , primarily with exertion. Rest helps to alleviate the episodes. He additionally c/o BLE cramping. He denies CP and edema. 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 Hx of DM, HLD, HTN, peripheral vascular disease , anemia, chronic renal failure. Surgical hx of spinal surgery, appendectomy, cardiac stents, LLE bypass. FHx cardiac disease, DM, cancer. Former smoker, daily EtOH, no substance use. - History of Current Complaint Chief Complaint: EDShortnessOfBreath Time Seen by Provider: 05/22/19 09:53 Hx Obtained From: Patient Onset/Duration: Gradual Onset, Lasting Weeks, Still Present Timing: Intermittent Episodes Lasting: - until rest Current Severity: Mild Dyspnea At: Exertion Aggravating Factors: Other - exertion Alleviating Factors: Other - rest Associated Signs & Symptoms: Calf Pain/Swelling - BLE cramping without edema - Allergy/Home Medications Allergies/Adverse Reactions: Allergies Allergy/AdvReac Type Severity Reaction Status Date / Time No Known Allergies Allergy Verified 05/22/19 09:38 Home Medications: Home Medications Atorvastatin* [Lipitor 20 MG*] 20 mg PO DAILY 05/22/19 [History Confirmed ] Bumetanide TAB* [Bumex 1 MG TAB*] 0.5 mg PO DAILY 05/22/19 [History Confirmed ] PMH/Surg Hx/FS Hx/Imm Hx Endocrine/Hematology History: Reports: Hx Anticoagulant Therapy - plavix, Hx Diabetes - uses insulin Cardiovascular History: Reports: Hx Coronary Artery Disease - stents placed, Hx Hypercholesterolemia, Hx Hypertension, Hx Peripheral Vascular Disease - bypass, Other Cardiovascular Problems/Disorders - Hx of 3 stents, B[place]ass Denies: Hx Pacemaker/ICD GI History: Denies: Hx Cirrhosis History: Reports: Hx Chronic Renal Failure - stage 3 followed w/ nephrology Denies: Hx Renal Disease Comment Only: Other Problems/Disorders - Renal failure May 2017 Musculoskeletal History: Reports: Other Musculoskeletal History - spinal surgery Sensory History: Reports: Hx Contacts or Glasses Denies: Hx Hearing Aid Opthamlomology History: Reports: Hx Contacts or Glasses Neurological History: Reports: Hx Migraine Denies: Hx Seizures Psychiatric History: Denies: Hx Panic Disorder - Surgical History Surgery Procedure, Year, and Place: appendectomy, herniated disk surg. HEART STENTS 1996 [place]. LEFT LEG BYPASS JAGDEEP 08/2017 Infectious Disease History: No Infectious Disease History: Denies: Traveled Outside the [place] in Last 30 Days - Family History Known Family History: Positive: Cardiac Disease, Diabetes Family History: FHx of [place] - Social History Alcohol Use: Daily Alcohol Amount: 6 beers a day Hx Substance Use: No Substance Use Type: Reports: None Hx Tobacco Use: Yes - currently chew tobacco Smoking Status (MU): Former Smoker Type: Smokeless Tobacco Review of Systems Negative: Chest Pain Positive: Shortness Of Breath Positive: Myalgia - BLE cramping. Negative: Edema All Other Systems Reviewed And Are Negative: Yes Physical Exam - Summary Physical Exam Summary: VITAL SIGNS: Reviewed. GENERAL: Patient is a well-developed and nourished male who is lying comfortable in the stretcher. Patient is not in any acute respiratory distress. HEAD AND FACE: No signs of trauma. No ecchymosis, hematomas or skull depressions. No sinus tenderness. EYES: PERRLA, EOMI x 2, No injected conjunctiva, no nystagmus. EARS: Hearing grossly intact. Ear canals and tympanic membranes are within normal limits. MOUTH: Oropharynx within normal limits. NECK: Supple, trachea is midline, no adenopathy, no JVD, no carotid bruit, no c- spine tenderness, neck with full ROM. CHEST: Symmetric, no tenderness at palpation. LUNGS: Clear to auscultation bilaterally. No wheezing or crackles. CVS: Regular rate and rhythm, S1 and S2 present, no murmurs or gallops appreciated. ABDOMEN: Soft, non-tender. No signs of distention. No rebound, no guarding, and no masses palpated. Bowel sounds are normal. EXTREMITIES: FROM in all major joints, no edema, no cyanosis or clubbing. NEURO: Alert and oriented x 3. No acute neurological deficits. Speech is normal and follows commands. SKIN: Dry and warm. Triage Information Reviewed: Yes Vital Signs On Initial Exam: Initial Vitals Temp Pulse Resp BP Pulse Ox 97.0 F 76 18 151/67 96 05/22/19 09:35 05/22/19 09:35 05/22/19 09:35 05/22/19 09:35 05/22/19 09:35 Vital Signs Reviewed: Yes Diagnostics - Vital Signs Vital Signs Temp Pulse Resp BP Pulse Ox 05/22/19 09:35 97.0 F 76 18 151/67 96 - Laboratory Result Diagrams: 05/22/19 10:14 05/22/19 10:14 Lab Statement: Any lab studies that have been ordered have been reviewed, and results considered in the medical decision making process. - Radiology CXR Radiology Interpretation Completed By: Radiologist Summary of Radiographic Findings: Small bilateral pleural effusions with bibasilar consolidation. Recommend follow-up until resolution to exclude underlying pulmonary parenchymal pathology. ED physician has reviewed this radiology report. - EKG 1007 Cardiac Rate: NL - 71 BPM EKG Rhythm: Sinus Rhythm Summary of EKG Findings: LVH. Q waves in V1, V2, and V3. T-wave inversions in V5 and V6. Re-Evaluation - Re-Evaluation First Eval Re-Evaluation Time: 11:30 Comment: I discussed admission with the patient. Course/Dx - Course Assessment/Plan: The patient is a 63 y/o M presenting to [facility] accompanied by with a chief complaint of gradual onset SOB over the past few weeks with worsening this morning. He reports that he began seeing Dr. Moyer concerning chronic renal failure, and she placed him on iron infusion treatments , which he was supposed to get one of today. Since then, he has been having intermittent episodes of SOB, primarily with exertion. Rest helps to alleviate the episodes. He additionally c/o BLE cramping. He denies CP and edema. 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 Hx of DM, HLD, HTN, peripheral vascular disease, anemia, chronic renal failure. Surgical hx of spinal surgery, appendectomy, cardiac stents, LLE bypass. FHx cardiac disease, DM, cancer. Former smoker, daily EtOH, no substance use. In the ED course, the patient was placed on a cattle producers and IV access was obtained. Blood work without any significant abnormality except for slight anemia, potassium of 5.7, BUN of 44, creatinine of 3.49, glucose of 173, alkaline phosphatase of 108, total CPK is 285, CK-MB of 11.3, and BNP more than 1300. In the ED course, the patient was given Lasix. I discussed my physical exam and findings with Dr. Pham from the hospital services, and she accepted the patient for admission. He is hemodynamically stable alert and oriented 3. - Diagnoses Provider Diagnoses: CHF (congestive heart failure) - Physician Notifications Discussed Care of Patient With: Chanelle Pham - hospitalist Time Discussed With Above Provider: 11:00 Instructed by Provider To: Other - I discussed the patient's case with Dr. Pham, and she accepts the patient for admission. Discharge - Sign-Out/Discharge Documenting (check all that apply): Patient Departure - Patient is accepted for admission to [facility] for further care by Dr. Pham. Patient Received Moderate/Deep Sedation with Procedure: No - Discharge Plan Condition: Stable Disposition: ADMITTED TO [facility] Referrals: Philip Farmer MD [Primary Care Provider] - - Billing Disposition and Condition Condition: STABLE Disposition: Admitted to [facility] - Attestation Statements Document Initiated by Luisibvishal: Yes Documenting Scribe: Mariangel Major Provider For Whom Marietta is Documenting (Include Credential): Dr. Lenin Weinstein MD Scribe Attestation: Mariangel Carl, scribed for Dr. Lenin Weinstein MD on 05/22/19 at 1311. Scribe Documentation Reviewed: Yes Provider Attestation: The documentation as recorded by the Mariangel taylor accurately reflects the service I personally performed and the decisions made by me, Dr. Lenin Weinstein MD Status of Scribe Document: Ready
[2019-05-22 10:24] LABS: ABS Basophils 0.1 10^3/ul (0-0.2); ABS Eosinophils 0.2 10^3/ul (0-0.6); ABS Lymphocytes 0.5 10^3/ul (1.0-4.8); ABS Monocytes 0.8 10^3/ul (0-0.8); ABS Neutrophils 7.5 10^3/ul (1.5-7.7); Eosinophil % 2.6 %; Hematocrit 40 % (42-52); Hemoglobin 13.4 g/dL (14.0-18.0); Lymphocyte % 5.2 %; Mean Corpuscular HGB Conc 33 g/dL (31-36); Mean Corpuscular Hemoglobin 28 pg (27-31); Mean Corpuscular Volume 86 fL (80-94); Mean Platelet Volume 8.5 fL (7.4-10.4); Platelet Count 270 10^3/uL (150-450); Red Blood Count 4.72 10^6 /uL (4.18-5.48); Red Cell Distribution Width 15 % (10-15); White Blood Count 9.2 10^3/uL (3.5-10.8)
[2019-05-22 10:43] LABS: Albumin 3.7 g/dL (3.2-5.2); Albumin/Globulin Ratio 1.3 (1-3); BUN/Creatinine Ratio 12.6 (8-20); C Reactive Protein 4.56 mg/L (<8.01); Calcium 9.1 mg/dL (8.6-10.3); EGFR African American 21.7 (>60); EGFR Non-African American 17.9 (>60); Globulin 2.8 g/dL (2-4); Potassium 5.7 mmol/L (3.5-5.0); Total Bilirubin 0.3 mg/dL (0.2-1.0); Total Protein 6.5 g/dL (6.4-8.9)
[2019-05-22 10:44] LABS: Troponin I 0.01 ng/mL (<0.04)
[2019-05-22 10:47] LABS: CKMB ng/mL 11.3 ng/mL (0.6-6.3)
[2019-05-22] MEDS ORDERED: Furosemide IV* 10 MG/ML 2 ML VIAL (20 MG) IV ONE (10:58)
[2019-05-22] MEDS ORDERED: Iron Sucrose* 200 MG in NS 0.9% 100 ML* 100 ML IVPB ONE (13:43)
[2019-05-22 14:13] LABS: Urine Appearance Clear; Urine Bacteria Absent (Absent); Urine Bilirubin Negative (Negative); Urine Blood 1+ (Negative); Urine Color Yellow; Urine Glucose 1+(50 mg/dL) (Negative); Urine Ketones Negative (Negative); Urine Nitrite Negative (Negative); Urine Protein 2+(100 mg/dL) (Negative); Urine Red Blood Cell Trace(0-2/hpf) (Absent); Urine Specific Gravity 1.006 (1.010-1.030); Urine Urobilinogen Negative (Negative); Urine White Blood Cell Absent (Absent)
[2019-05-22] MEDS ORDERED: Dextrose 50% Syringe 50 ML* 25 GM/50 ML SYRINGE IV PUSH PRN (14:18)
[2019-05-22] MEDS ORDERED: Patiromer POWDER* 8.4 GM PAK PO ONE (15:15)
--- NOTE | 2019-05-22 16:07 | ECHO ---
*[facility]* [place] [address] Fax #: [phone] Transthoracic Echocardiogram Patient: Dannie Louis : 1955 Study Date: 05/22/2019 Age: 63 Gender: M HR: 80 bpm Height: 68 in /172.7 cm BSA: 1.97 m^2 Weight: 183.6 lb /83.5 kg BMI: 28 kg/m^2 *Dredge Runner: Ellen Mckeon [facility] *Referring Physician: * Katia SrivastavaReading Physician: * Cristina Hernandez MD Indications: Congestive Heart Failure. History: Coronary artery disease. Risk factors: Current tobacco use. Hypertension. Diabetes mellitus. Dyslipidemia. Labs, prior tests, procedures, and surgery: Catheterization. There was a stenosis which was treated with a stent. Conclusions Summary: 1. Left ventricle: The cavity size is at the upper limits of normal. Wall thickness is mildly increased. Systolic function is moderately reduced. The estimated ejection fraction is 30-35%. Global hypokinesis with the inferiorposterior regions appearing to have greatest hypokinesis. Features are consistent with a pseudonormal left ventricular filling pattern, with concomitant abnormal relaxation and increased filling pressure (grade 2 diastolic dysfunction). 2. Right ventricle: Systolic function is normal. 3. Mitral valve: There is mild regurgitation. 4. Aortic valve: The valve is trileaflet. The leaflets are mildly thickened. There is mild regurgitation. 5. Tricuspid valve: There is trace regurgitation. 6. Pulmonary arteries: Systolic pressure is mildly increased. The peak pressure during systole by Doppler is 36.0 mm Hg. 7. Compared with prior echocardiogram of 04/04/18, ejection fraction has decreased from 50-55%, diastolic function previously mild, valve function is stable, elevated pulmonary artery pressure newly noted. Study data: Transthoracic echocardiogram. Procedure: Transthoracic echocardiography was performed. Image quality was good. Complete 2D, spectral Doppler, and color flow Doppler. Location: Emergency department. Patient status: Inpatient. Patient room number: 4. Rhythm: Normal sinus rhythm. Findings Left ventricle: The cavity size is at the upper limits of normal. Wall thickness is mildly increased. Systolic function is moderately reduced. The estimated ejection fraction is 30-35%. Regional wall motion abnormalities cannot be excluded, global hypokinesis with the inferiorposterior regions appearing to have greatest hypokinesis. Features are consistent with a pseudonormal left ventricular filling pattern, with concomitant abnormal relaxation and increased filling pressure (grade 2 diastolic dysfunction). Right ventricle: The cavity size is normal. Systolic function is normal. Systolic pressure is mildly increased. Left atrium: The atrium is severely dilated. Right atrium: The atrium is mildly dilated. Mitral valve: The leaflets are mildly thickened. There is no evidence of stenosis. There is mild regurgitation. Aortic valve: The valve is trileaflet. The leaflets are mildly thickened. There is no evidence of stenosis. There is mild regurgitation. Tricuspid valve: The leaflets are normal thickness. There is no evidence of stenosis. There is trace regurgitation. Pulmonic valve: The leaflets are normal thickness. There is no evidence of stenosis. There is no significant regurgitation. Aorta: Aortic root: The aortic root is appears normal. Ascending aorta: The ascending aorta is appears normal. Aortic arch: The aortic arch is poorly visualized. Pericardium: A pericardial effusion is identified. Pulmonary arteries: Not well visualized. Systolic pressure is mildly increased. Systemic veins: Inferior vena cava: The vessel is normal in size. The respirophasic diameter changes are in the normal range (>= 50%). Measurements Left ventricle Value Ref Aortic valve Value Ref SCOTT, LAX 5.5 cm 4.2 - 5.8 Meri diam, ED 2.1 cm ----- ESD, LAX (H) 4.5 cm 2.5 - 4.0 Peak v, S 1.12 m/sec ----- FS, LAX (L) 18 % 25 - 43 VTI, S 26.8 cm ----- PW, ED, LAX (H) 1.2 cm 0.6 - 1.0 Mean grad, S 3.0 mm Hg ----- EF (L) 37 % 52 - 72 Peak grad, S 5.0 mm Hg ----- E', lat meri, TDI (L) 5.7 cm/sec >=10.0 E/e', lat meri, 24 Mitral valve Value Ref TDI Peak E 1.34 m/sec ----- E', med meri, TDI (L) 3.5 cm/sec >=7.0 Peak A 0.65 m/sec --- -- E/e', med meri, 38 Decel time 132 ms ----- TDI Peak grad, D 7.2 mm Hg ----- E', avg, TDI 4.6 cm/sec Peak E/A ratio 2.1 ----- E/e', avg, TDI (H) 29 <=14 Pulmonic valve Value Ref LVOT Value Ref Peak v, S 0.55 m/sec ----- Peak chanelle, S 0.66 m/sec Peak grad, S 1.0 mm Hg ----- Mean grad, S 1 mm Hg Tricuspid valve Value Ref Ventricular septum Value Ref TR peak v 2.7 m/sec <=2.8 IVS, ED (H) 1.3 cm 0.6 - 1.0 Peak RV-RA grad, S 29 mm Hg ----- Right ventricle Value Ref Aortic root Value Ref SCOTT, LAX 2.3 cm Root diam 3.2 cm <4.1 SCOTT minor ax, A4C 3.0 cm 1.9 - 3.5 mid Ascending aorta Value Ref Pressure, S 37 mm Hg AAo AP diam, S 3.1 cm ----- Left atrium Value Ref Pulmonary artery Value Ref AP dim, ES (H) 4.90 cm 3.00 - Pressure, S 36.0 mm Hg ----- 4.00 ML dim, A4C 5.1 cm Inferior vena cava Value Ref SI dim, A4C 5.5 cm Diam 2.1 cm ----- Vol/bsa, ES, A/L (H) 52 ml/m^2 16 - 34 Right atrium Value Ref SI dim, ES (H) 5.4 cm 3.4 - 5.3 ML dim, ES, A4C 4.0 cm 2.6 - 4.4 Estimated RAP 8 mm Hg Legend: (L) and (H) bree values outside specified reference range. Prepared and electronically signed by Cristina Hernandez MD 05/22/2019 16:06
--- NOTE | 2019-05-22 16:57 | HP ---
ATTENDING ADDENDUM NOW INCLUDED ON THIS REPORT CC: Dr. Farmer; Dr. Moyer; Dr. Roblero * HISTORY AND PHYSICAL: DATE OF ADMISSION: 05/22/19 PRIMARY CARE PROVIDER: Dr. Farmer. OTHER PROVIDERS: Dr. Moyer, Dr. Roblero. ATTENDING PHYSICIAN: Dr. Ibarra * (dictated by EMMANUEL Ybarra). CHIEF COMPLAINT: Shortness of breath. HISTORY OF PRESENT ILLNESS: Mr. Louis is a 63-year-old male with a past medical history of CHF, CKD stage 3, diabetes, coronary artery disease, who presents to the ER today with complaints of 2 weeks of intermittent shortness of breath that has worsened today. He states that he has no shortness of breath with lying flat and he sleeps well through the night. He wakes and feels that there is a "gurgling" in his lungs with exhalation which goes away with standing. He has no shortness of breath at rest. He has shortness of breath with walking or exertion. He notes that today it worsened, explaining that he was short of breath with walking a shorter distance than normal. He does complain of an occasional cough, but no more than normal. He notes that his legs become tired when walking with the left greater than the right due to history of left lower extremity bypass. He denies lower extremity edema. He was diagnosed with CHF approximately a year and half ago and was placed on Bumex 2 daily. His junior art director cut this dose in half approximately 1 week ago. The patient is noted to be slightly anemic in the ER. He is working with Nephrology and was supposed to start iron infusions today per Dr. Moyer; this will be his first infusion. He notes that he saw Dr. Roblero in March and was given a "clean bill of health" and instructions to follow up in 1 year. His last echocardiogram was over a year ago. Again, the patient denies lower extremity edema. He denies changes in diet including increase in salty or processed foods or increased alcohol consumption. He denies chest pain, fever, chills. He denies abdominal pain, nausea, vomiting, diarrhea, or constipation. He states that he has been urinating okay. He has chronic kidney disease that does not currently require dialysis. While in the emergency room, the patient received a full workup, including blood work, which revealed an anemia, , elevated BUN and creatinine, although not significantly elevated over baseline. His BNP was greater than 1300. Chest x-ray revealed small bilateral pleural effusions with bibasilar consolidation. He received furosemide 20 IV in the ER. The hospitalist team was asked to evaluate the patient for admission. PAST MEDICAL HISTORY: 1. Congestive heart failure. 2. Coronary artery disease, 3 stents placed in 1996. 3. Diabetes mellitus. 4. Hypertension. 5. Hyperlipidemia. 6. Chronic kidney disease stage 3. 7. Anemia. 8. PVD. PAST SURGICAL HISTORY: Herniated disk, appendectomy, heart stents in 1996, left lower extremity bypass in 2017. HOME MEDICATIONS: 1. Atorvastatin 20 mg p.o. daily. 2. Bumetanide 0.5 mg p.o. daily. 3. Aspirin 81 mg p.o. daily. 4. Carvedilol 12.5 mg p.o. b.i.d. 5. Clopidogrel 75 mg p.o. daily. 6. Amlodipine 10 mg p.o. daily. 7. Lantus 20 to 25 mg subcu at bedtime. 8. Multivitamin. DRUG ALLERGIES: The patient believes he may be allergic to LISINOPRIL, but cannot remember details. FAMILY HISTORY: Father, heart disease. Brother, esophageal cancer. Maternal and paternal grandfather, diabetes mellitus. Negative for CVA. SOCIAL HISTORY: The patient quit smoking approximately 25 years ago. Prior to that, he smoked approximately 1 pack a day for 5 years. He has been chewing tobacco for greater than 10 years. He drinks daily 3 to 4 beers per day. 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 He lives with his . In the event that he is unable to make his own medical decisions, he has appointed his , Anoop Louis to be his surrogate decision maker. REVIEW OF SYSTEMS: A 10-point review of systems has been performed and all the pertinent positives and negatives are in the HPI. All other systems are negative. PHYSICAL EXAMINATION GENERAL: Mr. Louis is a well-developed, well-nourished, overweight, middle- aged white male who is sitting up in bed. He is breathing comfortably. He is in acute distress, no respiratory distress. He appears of stated age. He is cooperative and appropriate. VITAL SIGNS: Temperature 97.0 temporal, heart rate 81, respiratory rate 21, oxygen saturation 96% on room air, blood pressure 191/81. HEENT: PERRL. EOMI. Nonicteric sclerae. Oral mucous membranes are moist. There are no lesions. Hearing is grossly intact. RESPIRATORY: Symmetrical chest expansion without the use of accessory muscles. There are bibasilar rales, right greater than left. Decreased breath sounds in the upper lung hemphill. CARDIOVASCULAR: Regular rate and rhythm with S1, S2 present without murmurs, rubs, clicks, or gallops. There is no JVD. ABDOMEN: Bowel sounds noted in all quadrants. The abdomen is obese, soft, nontender to palpation. No hepatosplenomegaly. There is a bruise posteriorly on the left flank area. 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 MUSCULOSKELETAL: Full range of motion without pain or deformities. EXTREMITIES: Skin is warm and smooth bilaterally without clubbing, cyanosis. There is trace lower extremity edema bilaterally. NEURO: The patient is awake. He is alert and oriented x3. He is able to move all of his extremities. Cranial nerves are grossly intact. SKIN: Grossly intact without lesions. DIAGNOSTIC STUDIES/LAB DATA: HGB 13.4, HCT 40. Potassium ____, carbon dioxide 21, BUN 44, creatinine 3.49, glucose 173. Alk phos 108. Total creatine kinase 285, CK-MB 11.8. BNP greater than 1300. ECG: T-wave inversion noted, unchanged from ECG from 09/10/18. Chest x-ray, 05/22/19, impression: Small bilateral pleural effusions with bibasilar consolidation. Recommend followup until resolution to exclude underlying pulmonary parenchymal pathology. ASSESSMENT AND PLAN: Mr. Louis is a 63-year-old male with past medical history of congestive heart failure, coronary artery disease, diabetes mellitus , chronic kidney disease stage 3, who presents today to the ER today with complaints of shortness of breath with exertion. He was found to have bilateral pleural effusions with bibasilar consolidation on chest x-ray, an elevated BNP. He will be admitted to observation for: 1. Shortness of breath. The patient has pleural effusions noted on chest x- ray and an elevated BNP. He has bibasilar rales and trace edema to the lower extremities on physical exam. Congestive heart failure exacerbation is on the differential diagnosis. Echocardiogram has been ordered. Intake, output, and daily weights have been ordered. The patient has been given Lasix 20 this morning. He will receive Lasix 40 this afternoon, Lasix 40 tomorrow morning and then reassessed for further need. The patient also has bibasilar consolidation on chest x-ray. He is a staley. There is concern that he may have underlying lung disease. CT of the chest has been ordered depending on results, pulmonology consult may be necessary. 2. Chronic kidney disease. The patient states that he is urinating well. He is not a dialysis patient. His BUN and creatinine are slightly elevated, but are within baseline range. His anion gap is within normal limits. Dr. Damon was consulted and recommended Bicitra 15 cc t.i.d., this has been ordered. 3. Diabetes mellitus. The patient states that he takes Lantus only at home. He states he takes 20 to 25 units at night depending on his blood sugar. He will be continued on Lantus 15 units with possibility for need to titrate up. Lispro sliding scale has also been ordered. Fingerstick a.c. has been ordered along with lispro sliding scale. 4. Coronary artery disease. The patient will be continued on clopidogrel and aspirin. 5. Hyperlipidemia. Continue atorvastatin. 6. Hypertension. Continue carvedilol, amlodipine. 7. Anemia. The patient is noted to have low iron saturation, low iron, and a slightly decreased hemoglobin and hematocrit. He has been working with Nephrology for this. The plan was to start him on IV iron today. We will follow this plan and we will order Venofer 200 mg IV for today. 8. FEN: The patient has been placed on low sodium, consistent carbohydrate diet. No IV fluids have been ordered. 9. DVT risk assessment: According to the DVT risk assessment, the patient scores 2 placing him at moderate risk. He will be placed on SCDs. 10. Code status: Full code. TIME SPENT: Approximately 60 minutes was spent on this admission, greater than half that time was spent [id number] with the patient and his obtaining history, performing physical, and reviewing the plan of care. The case has been reviewed with my attending, Dr. Ibarra, who is in agreement with the plan of care. EMMANUEL YANG ADDENDUM: The case was reviewed and discussed with EMMANUEL Ybarra. Mr. Louis is a 63-year-old male with a past medical history of CHF; CKD, stage 3; diabetes; coronary artery disease, who presented to the emergency room with complaints of 2 weeks of shortness of breath. In the ED, he was found to have elevated BNP of 1300 and the impression was the patient probably had CHF exacerbation. He will be admitted for further diuresis. I am in agreement with his current management. TATIANNA Ibarra MD [id number]/CPS #: [id number]/CPS #: [id number] ALVINO
[2019-05-22] MEDS ORDERED: Furosemide IV* 10 MG/ML VIAL (40 MG) IV ONE (17:00)
[2019-05-22] MEDS ORDERED: hydrALAZINE IV* 20 MG/ML VIAL IV SLOW PU PRN (17:04)
[2019-05-22] MEDS: Insulin LISPRO* 1 UNITS UNIT SUBCUT SCH (17:42)
--- NOTE | 2019-05-22 19:59 | HP ---
CC: Dr. Farmer HISTORY AND PHYSICAL: DATE OF ADMISSION: ADDENDUM: The case was reviewed and discussed with EMMANUEL Ybarra. Mr. Louis is a 63-year-old male with a past medical history of CHF; CKD, stage 3; diabetes; coronary artery disease, who presented to the emergency room with complaints of 2 weeks of shortness of breath. In the ED, he was found to have elevated BNP of 1300 and the impression was the patient probably had CHF exacerbation. He will be admitted for further diuresis. I am in agreement with his current management. [id number]/CPS #: [id number] MTDD
[2019-05-22 20:40] LABS: BUN/Creatinine Ratio 13.8 (8-20); Calcium 9.6 mg/dL (8.6-10.3); EGFR African American 24.6 (>60); EGFR Non-African American 20.4 (>60)
[2019-05-22] MEDS: Carvedilol TAB* 6.25 MG PO SCH (20:47)
[2019-05-22] MEDS: Insulin GLARGINE(*) 1 UNITS UNIT SUBCUT SCH (20:48)
[2019-05-22 20:52] LABS: Potassium 5.1 mmol/L (3.5-5.0)
[2019-05-23 04:21] LABS: ABS Basophils 0.1 10^3/ul (0-0.2); ABS Eosinophils 0.3 10^3/ul (0-0.6); ABS Lymphocytes 0.9 10^3/ul (1.0-4.8); ABS Monocytes 0.8 10^3/ul (0-0.8); ABS Neutrophils 4.2 10^3/ul (1.5-7.7); Eosinophil % 4.6 %; Hematocrit 39 % (42-52); Hemoglobin 12.9 g/dL (14.0-18.0); Mean Corpuscular HGB Conc 33 g/dL (31-36); Mean Corpuscular Hemoglobin 28 pg (27-31); Mean Corpuscular Volume 85 fL (80-94); Mean Platelet Volume 8.4 fL (7.4-10.4); Platelet Count 253 10^3/uL (150-450); Red Blood Count 4.56 10^6 /uL (4.18-5.48); Red Cell Distribution Width 14 % (10-15); White Blood Count 6.3 10^3/uL (3.5-10.8)
[2019-05-23 04:34] LABS: BUN/Creatinine Ratio 12.7 (8-20); EGFR African American 22.5 (>60); EGFR Non-African American 18.6 (>60); Potassium 4.4 mmol/L (3.5-5.0)
[2019-05-23] MEDS: Aspirin EC TAB* 81 MG TAB.EC PO SCH (07:55)
[2019-05-23] MEDS: Clopidogrel TAB* 75 MG PO SCH (07:55)
[2019-05-23] MEDS: Carvedilol TAB* 6.25 MG PO SCH ×2 (07:55→22:38)
[2019-05-23] MEDS: Multivitamins/Minerals TAB PO SCH (07:55)
[2019-05-23] MEDS: Atorvastatin* 20 MG TAB PO SCH (07:55)
[2019-05-23] MEDS: Furosemide IV* 10 MG/ML VIAL (40 MG) IV SCH (07:55)
[2019-05-23] MEDS: amLODIPine TAB* 5 MG PO SCH (07:56)
[2019-05-23] MEDS: Insulin LISPRO* 1 UNITS UNIT SUBCUT SCH ×3 (08:00→18:04)
--- NOTE | 2019-05-23 14:24 | PN ---
Subjective Date of Service: 05/23/19 Interval History: This morning, he is off oxygen, with no shortness of breath, we have negative fluid balance. no chest pain,. was admitted yesterday, for shortness of breath, started on IV lasix for diuresis, ECHO done, nephro consult requested. Objective Active Medications: Amlodipine Besylate (Norvasc Tab*) 10 mg PO DAILY [facility] Last Admin: 05/23/19 07:56 Dose: 10 mg Aspirin (Aspirin Ec Tab*) 81 mg PO DAILY [facility] Last Admin: 05/23/19 07:55 Dose: 81 mg Atorvastatin Calcium (Lipitor*) 20 mg PO DAILY [facility] Last Admin: 05/23/19 07:55 Dose: 20 mg Carvedilol (Coreg Tab*) 12.5 mg PO BID [facility] Last Admin: 05/23/19 07:55 Dose: 12.5 mg Clopidogrel Bisulfate (Plavix Tab*) 75 mg PO DAILY [facility] Last Admin: 05/23/19 07:55 Dose: 75 mg Dextrose (D50w Syringe 50 Ml*) 12.5 gm IV PUSH .FOR FS < 60 - SS PRN PRN Reason: FS < 60 Furosemide (Lasix Iv*) 40 mg IV DAILY [facility] Last Admin: 05/23/19 07:55 Dose: 40 mg Hydralazine HCl (Apresoline Iv*) 5 mg IV SLOW PU Q6H PRN PRN Reason: Systolic Bp Greater Than: 160 Insulin Glargine (Lantus(*)) 15 units SUBCUT BEDTIME [facility] Last Admin: 05/22/19 20:48 Dose: 15 units Insulin Human Lispro (Humalog*) 0 units SUBCUT AC [facility]; Protocol Last Admin: 05/23/19 12:44 Dose: 2 units Multivitamins/Minerals (Theragran/Minerals Tab*) 1 tab PO DAILY [facility] Last Admin: 05/23/19 07:55 Dose: 1 tab Vital Signs - 8 hr 05/23/19 05/23/19 07:15 07:38 Temperature 98 F Pulse Rate 76 Respiratory 18 16 Rate Blood Pressure 134/63 (mmHg) O2 Sat by Pulse 96 Oximetry Oxygen Devices in Use Now: None Appearance: He is sitting on bed, comfortable. not in distress, Eyes: PERRLA Neck: Trachea Midline, No Thyroid Enlargement, Masses Respiratory: - - No tachypnea, on room air, no use of accessory muscles, minimal bibasilar crackles. Cardiovascular: RRR, No Edema Abdominal: NL Sounds; No Tenderness; No Distention, No Hepatosplenomegaly Extremities: No Edema, - - trace lower extremity edema. Neurological: Alert and Oriented x 3 Result Diagrams: 05/23/19 04:12 05/23/19 04:12 Assess/Plan/Problems-Billing Assessment: 63 year old male with CAD stent, CKD stage 3, CHF here with shortness of breath , likely CHF related. - Patient Problems (1) CKD (chronic kidney disease) Current Visit: Yes Status: Acute Code(s): N18.9 - CHRONIC KIDNEY DISEASE, UNSPECIFIED SNOMED Code(s): 984543207 Comment: stage 3, stable. Dr. Harrison was consulted, will f/u recommendations (2) Acute congestive heart failure Current Visit: No Status: Acute Code(s): I50.9 - HEART FAILURE, UNSPECIFIED SNOMED Code(s): 20750761 Comment: BNP elevated, SOB improved with IV diuresis. EF 30% with hypokinesis noted. Cardiology consult requested. Continue lasix, BB, asa, statin, plavix. I discussed case with nephrology, Dr. harrison, regarding SONYA inhibitor. GIven a change in EF, will await defnitive plan from cardiology regarding possible CATH. Per Dr. Harrison if Cath is planned and will be done soon to hold off on SONYA inhibitor after Cath. otherwise can start captopril 6.25mg BID, if patient is to go to CATH Dr. Harrison recommends giving acetylcysteine for renal protection. (3) CAD (coronary artery disease) Current Visit: No Status: Acute Code(s): I25.10 - ATHSCL HEART DISEASE OF [place] CORONARY ARTERY W/O ANG PCTRS SNOMED Code(s): 94774841 Comment: no chest pain, no shortness of breath right now, but EF of 30% now. continue home dose: asa, plavix, statin, bb. (4) Diabetes Current Visit: Yes Status: Acute Code(s): E11.9 - TYPE 2 DIABETES MELLITUS WITHOUT COMPLICATIONS SNOMED Code(s): 51488297 Comment: insulin regimen (5) DVT prophylaxis Current Visit: Yes Status: Acute Code(s): Z29.9 - ENCOUNTER FOR PROPHYLACTIC MEASURES, UNSPECIFIED SNOMED Code(s): 428930920 Comment: ambulate
--- NOTE | 2019-05-23 19:29 | CONS ---
CARDIOLOGY CONSULTATION: DATE OF CONSULT: 05/23/19 REFERRING PHYSICIAN: Dr. Rere Vaughn. REASON FOR CARDIOLOGY CONSULTATION: New-onset cardiomyopathy. HISTORY OF PRESENT ILLNESS: Mr. Louis was seen on the hospital henry today with his present. He states that for approximately 2 weeks he has been having progressive shortness of breath. Apparently, his grab jack worker had decreased his diuretic several weeks ago. The patient came to the hospital yesterday where he was found to have fluid overload and received IV diuresis with good effect. The patient himself denies chest pain and feels that his shortness of breath is now resolved and he is back to baseline and feeling "well." The patient had a transthoracic echocardiogram completed 05/22/19 on admission, which showed ejection fraction of 30% to 35% with mild mitral regurgitation, mild aortic insufficiency, mild pulmonary hypertension, PA systolic pressure of 36 mmHg, and when compared to prior echocardiogram of 04/04/18, ejection fraction had decreased from 50% to 55% as well as elevated pulmonary artery pressure was newly noted. The patient has had a prior cardiac chemical nuclear stress test on 11/28/17 where it states that there was apical photopenia. I have reviewed the images myself and do not think there is significant ischemia. It was reported interestingly that ejection fraction at that time was 38%. PAST MEDICAL HISTORY: 1. Chronic kidney disease, baseline creatinine between 2 to 3. He follows with a grab jack worker, Dr. Moyer. 2. He also has a history of peripheral arterial disease, status post left lower extremity bypass surgery with chronic wound of his left foot with osteomyelitis. 3. History of hypertension. 4. Hyperlipidemia. 5. The patient apparently has known history of CAD with two-vessel (presumably bare- metal stent) PCI in 1996 at [facility]. 6. Insulin-dependent type 2 diabetes for 32 years. OUTPATIENT MEDICATIONS: 1. Plavix 75 mg once a day. 2. Aspirin 325 mg once a day. 3. Bumex 0.5 mg once a day. 4. Lipitor 20 mg once a day. 5. Coreg 12.5 mg p.o. b.i.d. 6. Norvasc 10 mg once a day. ALLERGIES TO MEDICATIONS: Per the patient are none. However, review of his usual checkout operator, Dr. Jose Roblero who (who has assumed the patient's cardiac care from the patient's prior checkout operator, Dr. Bullock from 04/04/18) does state that metformin with contrast dye caused acute failure and ANT inhibitor causes hyperkalemia. He denies shrimp, seafood, or dye allergy. FAMILY HISTORY: Significant for heart disease in his father. His brother had a history of stroke and cancer. No family history of diabetes. The patient himself does have insulin-dependent type 2 diabetes for 32 years. SOCIAL HISTORY: He does not smoke cigarettes or use illicit drugs. He drinks 3 to 4 glasses of wine per day. He has been once. He is now for 9 years. 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 REVIEW OF SYSTEMS: He denies personal history of stroke, cancer, vomiting blood , coughing up blood, bright red blood per rectum, bleeding stomach ulcers, renal calculi, cholelithiasis, asthma, emphysema, pneumonia, tuberculosis, sleep apnea, home oxygen use. He does have a history of nosebleeds in the winter. He has a history of diabetes for 32 years. He has a history of hypertension. He denies prior ND, congestive heart failure, cardiac surgery, cardiac palpitations. He denies cardiac murmur. He denies a history of psychiatric illnesses, lupus, psoriasis, seizures, Parkinson's disease, myasthenia gravis. He denies thyroid disorders, liver disorders. He has chronic renal insufficiency. He has a history of PVD, status post left lower extremity bypass surgery with some residual infection and pain with walking. At that time, his metformin was not stopped at the time of his angiogram and he developed renal failure. He denies pulmonary emboli, deep venous thrombosis. He did notice a little bit of edema yesterday, which has resolved. He denies heartburn. All other review of systems are negative x14 except as per this documentation. PHYSICAL EXAM: Height 5 feet 8 inches, weight 184 pounds, temperature 97.8 degrees Fahrenheit, pulse 80, blood pressure is 134/63 to 166/71, O2 saturation 98%. On general exam, he is a pleasant gentleman, in no acute distress. HEENT shows the cranium is normocephalic and atraumatic. He has dry mucosal membranes. He appears chronically uremic. Neck veins are not distended. There are soft bilateral carotid bruits. Visible skin warm and perfused. Affect appropriate. He appears oriented. No significant kyphoscoliosis on back exam. Lungs are clear to auscultation. No wheezes. No rales. Cardiac Exam: S1, S2. Regular rate. No significant murmurs, rubs, or gallops. PMI is nondisplaced. Abdomen: Soft and nondistended, appears benign. Extremities with no significant edema. Pulses appear diminished in the left lower extremity , but does appear perfused. DIAGNOSTIC STUDIES/LAB DATA: A 12-lead EKG reviewed from 05/22/19 at 10:07 a.m. demonstrates NSR, probable left atrial enlargement, LVH, and likely old anterior infarct. White blood cell count 6.3, hematocrit 39, platelet count 253. Sodium 137, potassium 4.4, chloride 106, bicarbonate 22, BUN 43, creatinine 3.38, and his creatinine had been in the 2s since 2017. Troponin 0.01. BNP greater than 1300. IMPRESSION: Mr. Louis is a pleasant 63-year-old gentleman with history of long standing IRDM, known coronary artery disease status post 2-vessel ( presumed bare-metal stent) PCI in 1996, admitted with apparently new-onset cardiomyopathy since 04/04/2018 (although again his nuclear stress test did report ejection fraction of 38% on 11/28/17 as described above). He has developed volume overload in the setting of decreased diuretic recently by his grab jack worker in a patient with chronic kidney disease. With IV diuresis, he has significantly improved and now appears euvolemic. There are no unstable anginal symptoms ascertainable. RECOMMENDATIONS: 1. Continue aspirin, Norvasc, Coreg, Plavix for PVD, and Lasix IV. Could transition him to Bumex 1 mg p.o. daily on discharge. 2. Agree with Renal consultation and apparently the decision was made to re- trial the patient on Ant inhibitor; recommend following electrolytes closely including potassium given history of hyperkalemia with Ant inhibitor use in past. 3. The patient may follow up with his usual checkout operator, Dr. Roblero, post discharge and have an outpatient ischemic evaluation at that time. 4. Discontinue alcohol as it may promulgate cardiomyopathy through cardiotoxicity. 5. As an outpatient, also recommend close followup of electrolytes especially on increased dose of diuretics. I did discuss with the patient and his that he may end up requiring dialysis, which he does accept and will continue to follow with his grab jack worker. 6. Other management as per the hospitalist medicine service and I have discussed the case with Dr. Vaughn. I have additionally discussed the case with the patient and his and they appeared to be in agreement with these recommendations. Dear Dr. Vaughn, many thanks for this kind cardiac consultation opportunity. Please do not hesitate to contact me if you have any questions or concerns regarding the patient's cardiovascular consultative care. [id number]/[facility] #: [id number] ALVINO
[2019-05-23] MEDS: Captopril TAB* 12.5 MG PO SCH (22:39)
[2019-05-23] MEDS: Insulin GLARGINE(*) 1 UNITS UNIT SUBCUT SCH (22:40)
--- NOTE | 2019-05-23 22:47 | PN ---
NEPHROLOGY CONSULTATION REPORT: DATE OF CONSULT: 05/23/19 HISTORY OF PRESENT ILLNESS: Mr. Louis is a 63-year-old gentleman originally consulted on by my partner, Dr. Moyer. He has a history of chronic renal insufficiency which is felt to be on the basis of ramsey vascular disease. He has a history of hypertension. He has a history of coronary artery disease. His coronary artery angioplasty done with stent placement. He also has a history of peripheral vascular disease with a left fem-pop bypass. He presented with new onset shortness of breath and has been found to have a significant decline in his ejection fraction from 50%-55% to 30%-35%. Questions have arisen as to whether or not he can undergo angiography and whether or not he should have SONYA inhibition to assist with his cardiomyopathy. His previous medical history is significant for hypertension and hyperlipidemia. He has a history of type 2 diabetes mellitus for 30 years which probably contributes to his renal insufficiency. He has a history of taking Plavix 75 mg daily, aspirin 325 mg daily, Bumex 0.5 mg daily, Lipitor 20 mg daily, Coreg 12.5 mg b.i.d., Norvasc 10 mg daily. He does have a history of acute renal failure at the time of angiography in the past. He was on metformin at that time and was on SONYA inhibition at that time. It is not clear which or if a combination of these factors produced his renal failure which require dialysis for a couple of weeks. At the present time, he is feeling dramatically better than when he was admitted to the hospital. ALLERGIES: There are no medical allergies. PHYSICAL EXAM: His blood pressure is 148/65 with a pulse of 72, respirations 16. He is anicteric. His extraocular muscles are intact. Mucous membranes are moist. The chest is clear. The heart revealed a regular rhythm without murmurs. The abdomen is soft and nontender. There is no edema. DIAGNOSTIC STUDIES/LAB DATA: His white count is 6.3 with a hemoglobin of 12.9, platelet count is 253,000. Sodium of 137, potassium 4.4, total CO2 22, chloride 106. BUN 43 with a creatinine of 3.38. This is consistent with his levels in March and April of this year. He has an iron saturation which is depressed at 11%, although his ferritin level is adequate at 258. In April, he had a creatinine clearance of 27 cc per minute noted with 5432 mg of protein for 24 hours. IMPRESSION: 1. Worsened cardiomyopathy. 2. Chronic renal insufficiency, stage 4. 3. Diabetes mellitus, type 2. 4. Hypertension. DISCUSSION: The question arises whether we can have SONYA inhibition and whether or not he can undergo cardiac catheterization. Clearly the heart is the most important organ in the present situation because obviously we have the opportunity of compensating towards renal insufficiency should he worsen with his renal function. I would not simultaneously take him to cardiac catheterization and introduce an SONYA inhibition at the same time. I would think the timing of these 2 interventions should dictate which predominates. If there is a delay in cardiac catheterization, I would institute captopril at 6.25 mg twice a day and I would be willing to tolerate a rise in his serum creatinine to approximately 4.5 as a result of the effect of the captopril. I will choose captopril over all other SONYA inhibition because of half life in case renal function deteriorates to a significant extent or if he develops hyperkalemia. If it is elected to proceed now with cardiac catheterization at this time, I would treat him with acetylcysteine 600 mg b.i.d. the day before catheterization and the day of catheterization and I would delay the initiation of SONYA inhibition for hopefully 4 to 6 weeks after catheterization is over. He has a significant risk of acute renal injury with cardiac catheterization secondary to the dye load. This can be reduced somewhat but not limited by the use of acetylcysteine, although that is controversial. There are negative studies with cardiac catheterization in stage 3 patients, but there are many many positive studies with people further on in renal insufficiency and the risk level for the use of acetylcysteine is very very low. I have discussed the case with Dr. Vaughn. [id number]/[facility] #: [id number] ALVINO
[2019-05-24 06:42] LABS: BUN/Creatinine Ratio 13.3 (8-20); Calcium 9.1 mg/dL (8.6-10.3); EGFR African American 27.2 (>60); EGFR Non-African American 22.5 (>60); Potassium 4.2 mmol/L (3.5-5.0)
[2019-05-24 08:10] VITALS: BP 154/72
[2019-05-24] MEDS: Insulin LISPRO* 1 UNITS UNIT SUBCUT SCH (08:29)
[2019-05-24] MEDS: Clopidogrel TAB* 75 MG PO SCH (08:42)
[2019-05-24] MEDS: Atorvastatin* 20 MG TAB PO SCH (08:43)
[2019-05-24] MEDS: amLODIPine TAB* 5 MG PO SCH (08:43)
[2019-05-24] MEDS: Carvedilol TAB* 6.25 MG PO SCH (08:43)
[2019-05-24] MEDS: Multivitamins/Minerals TAB PO SCH (08:43)
[2019-05-24] MEDS: Aspirin EC TAB* 81 MG TAB.EC PO SCH (08:43)
[2019-05-24] MEDS: Captopril TAB* 12.5 MG PO SCH (08:43)
[2019-05-24] MEDS: Furosemide IV* 10 MG/ML VIAL (40 MG) IV SCH (08:45)
--- NOTE | 2019-05-24 22:09 | DS ---
CC: Dr. Farmer; Dr. Moyer; Dr. Jose Roblero; Dr. Damon DISCHARGE SUMMARY: DATE OF ADMISSION: 05/22/19 DATE OF DISCHARGE: 05/24/19 PRIMARY CARE PROVIDER: Dr. Farmer. PRIMARY WORKERS COMPENSATION CONSULTANT: Dr. Roblero. NEPHROLOGISTS: Dr. Moyer/Dr. Damon. CONSULTANTS DURING THE COURSE: Included: 1. Dr. Damon, merchandise executive. 2. Dr. Yobany Arzate, merchandise executive. CHIEF COMPLAINT: Shortness of breath. DISCHARGE DIAGNOSES: 1. Acute congestive heart failure exacerbation. 2. Chronic kidney disease stage 3. 3. Ischemic cardiomyopathy with ejection fraction of 30%. 4. Type 2 diabetes. HOSPITAL COURSE: This is a 63-year-old male with past medical history of congestive heart failure, chronic kidney disease stage 3, coronary artery disease with stent placement, diabetes, who was admitted to the hospital because of shortness of breath. Upon admission, the patient was found to have elevated BNP greater than 1300. The patient's BUN was 44, creatinine was 3.49. The patient was admitted to the hospital, was given IV diuresis. Echocardiogram was ordered. Dr. Damon was consulted and the patient was admitted to the hospital. The patient had an echocardiogram done which showed ejection fraction of 30% to 35%, with grade 2 diastolic dysfunction as well as global hypokinesis with inferoposterior regions appearing to have the greatest hypokinesis. The patient was seen by merchandise executive, Dr. Arzate. Plan was made to have an outpatient ischemic workup with his primary merchandise executive. It was also noted in the past that the patient had hyperkalemia secondary to an SONYA inhibitor. The patient was already on aspirin, statin, Plavix, beta blockers as well as diuretic. To optimize his heart failure medications, we added captopril 6.25 mg twice a day to add the SONYA inhibitor for the cardiac protection. This was discussed with arcgis developer, Dr. Damon, who felt okay starting him on SONYA inhibitor given that the patient has a close followup as well as instruction on a low-potassium diet. Dietitian saw the patient and discussed how to oblige with a 2 gram potassium-restricted diet. We printed out information regarding the potassium diet as well. The patient received IV diuresis for negative balance. We transitioned the patient upon discharge to take 1 mg Bumex daily. PHYSICAL EXAMINATION: The patient was seen and evaluated by myself at bedside. The patient did not have any chest pain, no shortness of breath. The patient was ambulating without requiring any oxygen. Upon discharge, the patient's blood pressure was 154/72, heart rate of 71, respiratory rate of 14, saturation of 97% on room air, temperature 98 Fahrenheit. General: This is a well- developed male, sitting on bed in no acute distress. HEENT: Pupils equal, round, reactive to light. Atraumatic, normocephalic. No JVD. Heart: No chest wall tenderness, regular rate and rhythm, no murmurs. Extremities: No lower extremity edema. Lungs: No tachypnea, no use of accessory muscles. Bibasilar crackles minimally. No wheezing or rhonchi. Neurologic: Alert and oriented x3. DISCHARGE PLANNING: DISCHARGE DISPOSITION: The patient is to be discharged home in a stable condition. DISCHARGE DIAGNOSES: Include: 1. Congestive heart failure with ejection fraction of 30%. 2. Chronic kidney disease stage 3. 3. Ischemic cardiomyopathy. 4. Diabetes. DISCHARGE INSTRUCTIONS: To include a low-potassium diet, heart-healthy diet. The patient is to get a basic metabolic panel on 05/27/19 after which he is supposed to call Dr. Damon's office. Diet includes potassium-restricted diet. DISCHARGE MEDICATIONS: Include: New medications added: 1. Captopril 6.25 twice a day. 2. We made an adjustment to his diuretics, the patient was taking 0.5 mg Bumex daily. We have discharged him on Bumex 1 mg daily. 3. Amlodipine 5 mg daily. 4. Aspirin 325 mg daily. 5. Atorvastatin 20 mg daily. 6. Carvedilol 6.25 mg twice a day. 7. Plavix 75 mg daily. 8. Multivitamins. 9. Lantus 20 to 25 units subcu at bedtime. 10. Insulin lispro 2 to 4 units subcu at bedtime as needed. DISCHARGE FOLLOWUP: Includes: 1. Dr. Jose Roblero, merchandise executive, on 06/05/19 at 11 a.m. 2. The patient is to follow up with primary care doctor, Dr. Farmer, within a week. 3. The patient is to follow up with Dr. Kirill Damon in 1 to 3 days. The patient is told to return to the emergency room for any shortness of breath , palpitations, chest pain, worsening leg swelling, changes in urination, or if any new symptoms arise and signs. The patient needs to get a blood work done, BMP on 05/27/19, order has been given to the patient. After the blood work is done, the patient is to call Dr. Damon's or Dr. Moyer's office. The patient is to call Dr. Damon's or Dr. Moyer's office to make an appointment for Monday/Monday, 05/28/19 or 05/29/19. [id number]/[facility] #: [id number] [place]
== END 2019-05-24 13:15 | disposition home or self-care (01) ==
LOC: ED 09:32 → MED 13:18 → MEDTELE 05-23 15:40
PROVIDERS: ADMIT Internal Medicine; ATTEND Internal Medicine
DX: I13.0 Hypertensive heart and chronic kidney disease with heart failure and stage 1 through stage 4 chronic kidney disease, or unspecified chronic kidney disease (principal); E11.22 Type 2 diabetes mellitus with diabetic chronic kidney disease; N18.4 Chronic kidney disease, stage 4 (severe); Z79.4 Long term (current) use of insulin; I25.5 Ischemic cardiomyopathy; Z79.82 Long term (current) use of aspirin; Z79.899 Other long term (current) drug therapy; R06.02 Shortness of breath
CPT/HCPCS: 36415; 71046; 71250; 80048; 80053; 81003; 81015; 82550; 82553; 82803; 83605; 83880; 84484; 85025; 86140; 93005; 93306; 96365; 96366; 96375; 96376; 99285; A9270-GY; G0378; J1756; J1940

== ENCOUNTER 2020-08-18 12:24 | Inpatient (IN) ==
[2020-08-18 15:09] LABS: ABS Basophils 0.1 10^3/ul (0-0.2); ABS Eosinophils 0.4 10^3/ul (0-0.6); ABS Lymphocytes 0.8 10^3/ul (1.0-4.8); ABS Monocytes 0.7 10^3/ul (0-0.8); ABS Neutrophils 5.6 10^3/ul (1.5-7.7); Eosinophil % 4.7 %; Hematocrit 36 % (42-52); Hemoglobin 11.9 g/dL (14.0-18.0); Lymphocyte % 10.6 %; Mean Corpuscular HGB Conc 33 g/dL (31-36); Mean Corpuscular Hemoglobin 28 pg (27-31); Mean Corpuscular Volume 86 fL (80-94); Mean Platelet Volume 8.6 fL (7.4-10.4); Platelet Count 291 10^3/uL (150-450); Red Blood Count 4.22 10^6 /uL (4.18-5.48); Red Cell Distribution Width 14 % (10-15); White Blood Count 7.6 10^3/uL (3.5-10.8)
[2020-08-18 15:29] LABS: ALT 17 U/L (7-52); AST 20 U/L (13-39); Albumin 3.7 g/dL (3.2-5.2); Albumin/Globulin Ratio 1.5 (1-3); Alkaline Phosphatase 104 U/L (34-104); BUN/Creatinine Ratio 11.6 (8-20); Blood Urea Nitrogen 54 mg/dL (6-24); CO2 Carbon Dioxide 21 mmol/L (22-32); Calcium 8.6 mg/dL (8.6-10.3); Chloride 107 mmol/L (101-111); EGFR African American 15.4 (>60); EGFR Non-African American 12.7 (>60); Globulin 2.5 g/dL (2-4); Glucose 142 mg/dL (70-100); Sodium 136 mmol/L (135-145); Total Protein 6.2 g/dL (6.4-8.9)
[2020-08-18 15:35] LABS: Anion Gap 8 mmol/L (2-11); Troponin I 0.03 ng/mL (<0.03)
[2020-08-18] MEDS ORDERED: Furosemide 40 mg/4 ml IV VIAL IV ONE (15:40)
[2020-08-18] MEDS ORDERED: CALCIUM GLUCONATE 1GM/50ML NS 1 GM/50 ML BAG IV ONE (15:45)
[2020-08-18] MEDS ORDERED: Furosemide 20 mg/2 ml IV VIAL IV SLOW PU ONE (17:57)
[2020-08-18] MEDS ORDERED: Senna TAB 8.6 mg TAB PO PRN (18:02)
[2020-08-18] MEDS ORDERED: Dextrose 50% Syringe 50 ml 25 GM/50 ML SYRINGE IV PUSH PRN (18:37)
[2020-08-18] MEDS ORDERED: Labetalol IV 5 MG/ML 20 ml VIAL IV PUSH ONE (18:45)
[2020-08-18] MEDS: Bumetanide IV 0.25 MG/ML 4 ml VIAL (1 mg) SLOW PUSH SCH ×2 (18:49→22:22)
[2020-08-18 19:16] LABS: BUN/Creatinine Ratio 11.3 (8-20); Blood Urea Nitrogen 54 mg/dL (6-24); CO2 Carbon Dioxide 22 mmol/L (22-32); Calcium 9.3 mg/dL (8.6-10.3); Chloride 108 mmol/L (101-111); EGFR Non-African American 12.4 (>60); Glucose 81 mg/dL (70-100); Sodium 139 mmol/L (135-145)
[2020-08-18 19:19] LABS: Anion Gap 9 mmol/L (2-11); Potassium 5.6 mmol/L (3.5-5.0)
[2020-08-18 19:20] LABS: Troponin I 0.03 ng/mL (<0.03)
[2020-08-18 19:56] LABS: Phosphorus 4.2 mg/dL (2.5-5.0)
[2020-08-18] MEDS ORDERED: Bumetanide IV 0.25 MG/ML 4 ml VIAL (1 mg) SLOW PUSH SCH (21:00)
[2020-08-18] MEDS: Insulin GLARGINE 100 un/ml 10 ml VIAL SUBCUT SCH (22:23)
[2020-08-18] MEDS: Heparin 5000 UNITS/ML 1 mL VIAL SUBCUT SCH (22:24)
[2020-08-19] MEDS: Heparin 5000 UNITS/ML 1 mL VIAL SUBCUT SCH ×3 (05:45→20:07)
[2020-08-19 07:18] LABS: ABS Basophils 0.1 10^3/ul (0-0.2); ABS Eosinophils 0.3 10^3/ul (0-0.6); ABS Lymphocytes 0.9 10^3/ul (1.0-4.8); ABS Monocytes 0.8 10^3/ul (0-0.8); ABS Neutrophils 4.3 10^3/ul (1.5-7.7); Eosinophil % 5.1 %; Hematocrit 35 % (42-52); Hemoglobin 11.7 g/dL (14.0-18.0); Mean Corpuscular HGB Conc 34 g/dL (31-36); Mean Corpuscular Hemoglobin 29 pg (27-31); Mean Corpuscular Volume 86 fL (80-94); Mean Platelet Volume 8.8 fL (7.4-10.4); Platelet Count 274 10^3/uL (150-450); Red Blood Count 4.04 10^6 /uL (4.18-5.48); Red Cell Distribution Width 14 % (10-15); White Blood Count 6.3 10^3/uL (3.5-10.8)
[2020-08-19 07:34] LABS: BUN/Creatinine Ratio 11.8 (8-20); Calcium 8.8 mg/dL (8.6-10.3); EGFR African American 14.8 (>60); EGFR Non-African American 12.2 (>60); Phosphorus 4.5 mg/dL (2.5-5.0)
[2020-08-19] MEDS: Patiromer POWDER 8.4 GM PAK PO SCH (07:39)
[2020-08-19] MEDS: Isosorbide Mononit ER 30mg TAB PO SCH (07:40)
[2020-08-19] MEDS: Multivitamins/Minerals TAB PO SCH (07:40)
[2020-08-19] MEDS: Bumetanide IV 0.25 MG/ML 4 ml VIAL (1 mg) SLOW PUSH SCH (07:42)
[2020-08-19 07:43] LABS: Potassium 5.2 mmol/L (3.5-5.0)
[2020-08-19] MEDS ORDERED: Bumetanide IV 0.25 MG/ML 4 ml VIAL (1 mg) SLOW PUSH SCH (09:00)
[2020-08-19] MEDS: Insulin GLARGINE 100 un/ml 10 ml VIAL SUBCUT SCH (20:07)
[2020-08-20] MEDS: Heparin 5000 UNITS/ML 1 mL VIAL SUBCUT SCH ×3 (05:17→20:27)
[2020-08-20 07:01] LABS: BUN/Creatinine Ratio 12.8 (8-20); Calcium 8.4 mg/dL (8.6-10.3); EGFR African American 13.8 (>60); EGFR Non-African American 11.4 (>60)
[2020-08-20 07:21] LABS: Potassium 5.9 mmol/L (3.5-5.0)
[2020-08-20] MEDS: Isosorbide Mononit ER 30mg TAB PO SCH (07:53)
[2020-08-20] MEDS: Multivitamins/Minerals TAB PO SCH (07:54)
[2020-08-20] MEDS: Patiromer POWDER 8.4 GM PAK PO SCH (07:55)
[2020-08-20] MEDS ORDERED: Patiromer POWDER 8.4 GM PAK PO ONE (13:30)
[2020-08-20] MEDS ORDERED: Sodium Polystyrene ORAL.SUSP 15 GM/60 ML BTL PO ONE ×2 (14:40)
[2020-08-20 19:33] LABS: Calcium 8.7 mg/dL (8.6-10.3); EGFR African American 14.3 (>60); EGFR Non-African American 11.8 (>60)
[2020-08-20 19:53] LABS: Potassium 5.6 mmol/L (3.5-5.0)
[2020-08-20] MEDS ORDERED: Insulin GLARGINE 100 un/ml 10 ml VIAL SUBCUT SCH (21:00)
[2020-08-21] MEDS: Heparin 5000 UNITS/ML 1 mL VIAL SUBCUT SCH (05:54)
[2020-08-21 07:09] LABS: BUN/Creatinine Ratio 13.2 (8-20); Calcium 8.4 mg/dL (8.6-10.3); EGFR Non-African American 12.4 (>60); Magnesium 1.9 mg/dL (1.9-2.7); Phosphorus 5.2 mg/dL (2.5-5.0); Potassium 4.6 mmol/L (3.5-5.0)
[2020-08-21] MEDS: Multivitamins/Minerals TAB PO SCH (08:54)
[2020-08-21] MEDS: Isosorbide Mononit ER 30mg TAB PO SCH (08:54)
[2020-08-21] MEDS: Patiromer POWDER 8.4 GM PAK PO SCH (08:55)
[2020-08-21 10:39] VITALS: BP 138/67
== END 2020-08-21 11:19 | disposition home or self-care (01) | DRG 194 ==
LOC: ED 12:24 → MEDTELE 18:02
PROVIDERS: ADMIT Internal Medicine; ATTEND Student in an Organized Health Care Education/Training Program

== ENCOUNTER 2020-09-21 23:51 | Observation (INO) ==
[2020-09-22 00:35] LABS: ABS Basophils 0.1 10^3/ul (0-0.2); ABS Eosinophils 0.3 10^3/ul (0-0.6); ABS Lymphocytes 0.7 10^3/ul (1.0-4.8); ABS Monocytes 0.8 10^3/ul (0-0.8); ABS Neutrophils 6.7 10^3/ul (1.5-7.7); Eosinophil % 3.8 %; Hematocrit 31 % (42-52); Hemoglobin 10.1 g/dL (14.0-18.0); Lymphocyte % 8.1 %; Mean Corpuscular HGB Conc 33 g/dL (31-36); Mean Corpuscular Hemoglobin 28 pg (27-31); Mean Corpuscular Volume 86 fL (80-94); Mean Platelet Volume 9.2 fL (7.4-10.4); Platelet Count 281 10^3/uL (150-450); Red Blood Count 3.57 10^6 /uL (4.18-5.48); Red Cell Distribution Width 14 % (10-15); White Blood Count 8.5 10^3/uL (3.5-10.8)
[2020-09-22 00:45] LABS: INR 0.96 (0.82-1.09)
[2020-09-22 01:05] LABS: ALT 21 U/L (7-52); AST 18 U/L (13-39); Albumin 3.6 g/dL (3.2-5.2); Albumin/Globulin Ratio 1.6 (1-3); Alkaline Phosphatase 99 U/L (34-104); BUN/Creatinine Ratio 13.8 (8-20); Blood Urea Nitrogen 73 mg/dL (6-24); CO2 Carbon Dioxide 17 mmol/L (22-32); Calcium 8.3 mg/dL (8.6-10.3); Chloride 106 mmol/L (101-111); Creatine Kinase 273 U/L (10-223); EGFR African American 13.4 (>60); EGFR Non-African American 11.1 (>60); Globulin 2.2 g/dL (2-4); Glucose 339 mg/dL (70-100); Sodium 133 mmol/L (135-145); Total Protein 5.8 g/dL (6.4-8.9)
[2020-09-22 01:12] LABS: Anion Gap 10 mmol/L (2-11); Potassium 5.4 mmol/L (3.5-5.0)
[2020-09-22 01:16] LABS: Troponin I 0.03 ng/mL (<0.03)
[2020-09-22] MEDS ORDERED: Bumetanide IV 0.25 MG/ML 4 ml VIAL (1 mg) SLOW PUSH ONE (02:06)
[2020-09-22] MEDS ORDERED: Senna TAB 8.6 mg TAB PO PRN (04:50)
[2020-09-22] MEDS ORDERED: Ondansetron 4 mg VIAL 2 MG/ML 2 ml VIAL IV PRN (04:50)
[2020-09-22 05:23] LABS: Urine Appearance Clear; Urine Bilirubin Negative (Negative); Urine Blood Negative (Negative); Urine Color Straw; Urine Glucose 3+(>=500 mg/dL) (Negative); Urine Ketones Negative (Negative); Urine Nitrite Negative (Negative); Urine Protein 3+(>=500 mg/dL) (Negative); Urine Specific Gravity 1.009 (1.010-1.030); Urine Urobilinogen Negative (Negative)
[2020-09-22 05:36] LABS: Urine Bacteria Absent (Absent); Urine Red Blood Cell Trace(0-2/hpf) (Absent); Urine White Blood Cell Trace(0-5/hpf) (Absent)
[2020-09-22] MEDS ORDERED: Dextrose 50% Syringe 50 ml 25 GM/50 ML SYRINGE IV PUSH PRN (05:40)
[2020-09-22 07:33] LABS: BUN/Creatinine Ratio 14.4 (8-20); Calcium 8.6 mg/dL (8.6-10.3); EGFR African American 13.4 (>60); EGFR Non-African American 11.1 (>60)
[2020-09-22 07:36] LABS: Potassium 5.6 mmol/L (3.5-5.0)
[2020-09-22] MEDS: Sodium Polystyrene ORAL.SUSP 15 GM/60 ML BTL PO SCH (09:07)
[2020-09-22 12:42] LABS: Body Fluid Source Pleural Fluid
[2020-09-22] MEDS: Heparin 5000 UNITS/ML 1 mL VIAL SUBCUT SCH ×2 (13:18→21:19)
[2020-09-22] MEDS ORDERED: Insulin GLARGINE 100 un/ml 10 ml VIAL SUBCUT ONE (13:22)
[2020-09-22 15:19] LABS: Body Fluid Mono 24 %
[2020-09-22] MEDS ORDERED: Insulin GLARGINE 100 un/ml 10 ml VIAL SUBCUT SCH ×2 (21:00)
[2020-09-22] MEDS ORDERED: Enoxaparin 30 MG/0.3 ML SYR SUBCUT SCH (21:00)
[2020-09-23] MEDS: Heparin 5000 UNITS/ML 1 mL VIAL SUBCUT SCH ×2 (05:49→13:24)
[2020-09-23 06:29] LABS: ABS Basophils 0.1 10^3/ul (0-0.2); ABS Eosinophils 0.1 10^3/ul (0-0.6); ABS Lymphocytes 0.7 10^3/ul (1.0-4.8); Eosinophil % 1.1 %; Hematocrit 30 % (42-52); Lymphocyte % 5.8 %; Mean Corpuscular HGB Conc 33 g/dL (31-36); Mean Corpuscular Hemoglobin 28 pg (27-31); Mean Corpuscular Volume 85 fL (80-94); Mean Platelet Volume 9.3 fL (7.4-10.4); Platelet Count 289 10^3/uL (150-450); Red Blood Count 3.54 10^6 /uL (4.18-5.48); Red Cell Distribution Width 14 % (10-15); White Blood Count 11.9 10^3/uL (3.5-10.8)
[2020-09-23 06:57] LABS: BUN/Creatinine Ratio 14.5 (8-20); EGFR African American 12.7 (>60); EGFR Non-African American 10.5 (>60); Potassium 5.2 mmol/L (3.5-5.0)
[2020-09-23] MEDS: Sodium Polystyrene ORAL.SUSP 15 GM/60 ML BTL PO SCH (08:48)
[2020-09-23] MEDS ORDERED: Sodium Bicarb 650 mg (ANTACID) TAB PO SCH (09:00)
[2020-09-23] MEDS ORDERED: Bumetanide IV 0.25 MG/ML 4 ml VIAL (1 mg) SLOW PUSH ONE (09:00)
[2020-09-23 12:19] LABS: Fluid Type, Glucose PLEURAL; Glucose, BF 375 mg/dL
[2020-09-23 12:24] LABS: Fluid Type, Albumin PLEURAL; Fluid Type, Protein, Total PLEURAL
[2020-09-23 15:39] VITALS: BP 135/54
== END 2020-09-23 18:52 | disposition home or self-care (01) ==
LOC: MEDTELE 23:51 → ED 23:51 → MEDTELE 09-22 06:24
PROVIDERS: ADMIT Student in an Organized Health Care Education/Training Program; ATTEND Internal Medicine

== ENCOUNTER 2020-09-28 09:13 | Observation (INO) ==
[2020-09-28 10:00] LABS: ABS Basophils 0.1 10^3/ul (0-0.2); ABS Eosinophils 0.4 10^3/ul (0-0.6); ABS Lymphocytes 0.7 10^3/ul (1.0-4.8); ABS Monocytes 0.8 10^3/ul (0-0.8); ABS Neutrophils 6.4 10^3/ul (1.5-7.7); Eosinophil % 4.5 %; Hematocrit 34 % (42-52); Hemoglobin 11.1 g/dL (14.0-18.0); Lymphocyte % 8.4 %; Mean Corpuscular HGB Conc 33 g/dL (31-36); Mean Corpuscular Hemoglobin 28 pg (27-31); Mean Corpuscular Volume 85 fL (80-94); Mean Platelet Volume 8.4 fL (7.4-10.4); Platelet Count 322 10^3/uL (150-450); Red Blood Count 3.98 10^6 /uL (4.18-5.48); Red Cell Distribution Width 14 % (10-15); White Blood Count 8.3 10^3/uL (3.5-10.8)
[2020-09-28 10:25] LABS: ALT 24 U/L (7-52); AST 18 U/L (13-39); Albumin 3.7 g/dL (3.2-5.2); Albumin/Globulin Ratio 1.5 (1-3); Alkaline Phosphatase 104 U/L (34-104); Anion Gap 9 mmol/L (2-11); BUN/Creatinine Ratio 14.3 (8-20); Blood Urea Nitrogen 66 mg/dL (6-24); C Reactive Protein 7.54 mg/L (<8.01); CO2 Carbon Dioxide 22 mmol/L (22-32); Calcium 8.6 mg/dL (8.6-10.3); Chloride 104 mmol/L (101-111); EGFR African American 15.7 (>60); EGFR Non-African American 12.9 (>60); Globulin 2.5 g/dL (2-4); Glucose 112 mg/dL (70-100); Magnesium 2.2 mg/dL (1.9-2.7); Potassium 4.8 mmol/L (3.5-5.0); Sodium 135 mmol/L (135-145); Total Protein 6.2 g/dL (6.4-8.9)
[2020-09-28 10:51] LABS: Troponin I 0.06 ng/mL (<0.03)
[2020-09-28 10:56] LABS: TSH Ultra Thyroid Stim Horm 2.89 mcIU/mL (0.34-5.60)
[2020-09-28] MEDS ORDERED: Furosemide 40 mg/4 ml IV VIAL IV SLOW PU ONE (11:21)
[2020-09-28 11:59] LABS: Urine Appearance Clear; Urine Bilirubin Negative (Negative); Urine Blood Negative (Negative); Urine Color Straw; Urine Glucose 1+(50 mg/dL) (Negative); Urine Ketones Negative (Negative); Urine Nitrite Negative (Negative); Urine Protein 2+(100 mg/dL) (Negative); Urine Specific Gravity 1.006 (1.010-1.030); Urine Urobilinogen Negative (Negative)
[2020-09-28 12:12] LABS: Urine Bacteria 1+ (Absent); Urine Red Blood Cell Trace(0-2/hpf) (Absent); Urine White Blood Cell Trace(0-5/hpf) (Absent)
[2020-09-28 13:48] LABS: Troponin I 0.05 ng/mL (<0.03)
[2020-09-28] MEDS ORDERED: Dextrose 50% Syringe 50 ml 25 GM/50 ML SYRINGE IV PUSH PRN (14:10)
[2020-09-28] MEDS ORDERED: SODIUM POLYSTYRENE SULFONATE PO SCH (14:15)
[2020-09-28] MEDS: Heparin 5000 UNITS/ML 1 mL VIAL SUBCUT SCH ×2 (14:41→21:30)
[2020-09-28] MEDS ORDERED: Insulin GLARGINE 100 un/ml 10 ml VIAL SUBCUT SCH (21:00)
[2020-09-29 05:39] LABS: ABS Basophils 0.1 10^3/ul (0-0.2); ABS Eosinophils 0.3 10^3/ul (0-0.6); ABS Lymphocytes 0.8 10^3/ul (1.0-4.8); ABS Monocytes 0.7 10^3/ul (0-0.8); ABS Neutrophils 4.7 10^3/ul (1.5-7.7); Eosinophil % 4.7 %; Hematocrit 32 % (42-52); Hemoglobin 10.4 g/dL (14.0-18.0); Lymphocyte % 12.3 %; Mean Corpuscular HGB Conc 33 g/dL (31-36); Mean Corpuscular Hemoglobin 28 pg (27-31); Mean Corpuscular Volume 85 fL (80-94); Mean Platelet Volume 8.7 fL (7.4-10.4); Platelet Count 295 10^3/uL (150-450); Red Cell Distribution Width 14 % (10-15); White Blood Count 6.6 10^3/uL (3.5-10.8)
[2020-09-29 05:58] LABS: BUN/Creatinine Ratio 13.4 (8-20); Calcium 8.4 mg/dL (8.6-10.3); EGFR African American 15.1 (>60); EGFR Non-African American 12.5 (>60); Magnesium 2.2 mg/dL (1.9-2.7); Potassium 4.8 mmol/L (3.5-5.0)
[2020-09-29] MEDS ORDERED: Fluticasone NASAL SPRAY 50MCG 16 gm SPRAY BTL INTRANASAL SCH (09:00)
[2020-09-29] MEDS ORDERED: Isosorbide Mononit ER 30mg TAB PO SCH (09:00)
[2020-09-29] MEDS ORDERED: Cholecalciferol (VIT D3) 1,000 unit TAB PO SCH (09:00)
[2020-09-29] MEDS ORDERED: Sodium Bicarb 650 mg (ANTACID) TAB PO SCH (09:00)
[2020-09-29] MEDS ORDERED: Vitamin THERAPEUTIC TAB PO SCH (09:00)
[2020-09-29 11:55] VITALS: BP 140/54
[2020-09-29] MEDS ORDERED: Heparin 5000 UNITS/ML 1 mL VIAL SUBCUT SCH (12:00)
== END 2020-09-29 14:00 | disposition home or self-care (01) ==
LOC: ED 09:13 → MEDTELE 09:13
PROVIDERS: ADMIT Internal Medicine; ATTEND Internal Medicine